=== PATIENT | female | born 1945 | race Caucasian/White ===

== ENCOUNTER → 2020-05-11 14:56 | Outpatient (BNVA) | payer MEDICARE, SELFPAY | PROVIDERS: PCP Internal Medicine; Referring Provider Internal Medicine; Visit Provider Internal Medicine Endocrinology, Diabetes & Metabolism | DX: Z76.89 Persons encountering health services in other specified circumstances (principal) ==

== ENCOUNTER → 2020-06-07 09:56 | Outpatient (BNVA) | payer MEDICARE, SELFPAY | PROVIDERS: PCP Internal Medicine; Referring Provider Internal Medicine; Visit Provider Internal Medicine Endocrinology, Diabetes & Metabolism | DX: Z13.89 Encounter for screening for other disorder (principal) | CPT/HCPCS: 99212 ==

== ENCOUNTER 2020-06-14 12:08 | Outpatient (REF) | payer MEDICARE, SELFPAY ==
[2020-06-14 14:27] LABS: Free T4 (Free Thyroxine) 0.89 ng/dL (0.71-1.85); Thyroid Stimulating Hormone 16.89 uIU/mL (0.32-4.0); Vitamin D 25-OH Total 35.8 ng/mL (>30)
[2020-06-17 07:26] LABS: Thyroglobulin Antibody <1 IU/mL (<=1); Thyroglobulin Level 1.4 ng/mL
== END 2020-06-14 12:09 | disposition home or self-care (01) ==
LOC: HO.LAB 12:08
PROVIDERS: PCP Internal Medicine; Visit Provider Internal Medicine Endocrinology, Diabetes & Metabolism
DX: C73 Malignant neoplasm of thyroid gland (principal); M81.0 Age-related osteoporosis without current pathological fracture
CPT/HCPCS: 36415; 82306; 84432; 84439; 84443; 86800

== ENCOUNTER → 2020-07-26 12:47 | Outpatient (REF) | payer MEDICARE, SELFPAY ==
--- NOTE | 2020-07-26 | NM_ITS ---
EXAMINATION: RENAL DYNAMIC IMAGING STUDY WITH LASIX CLINICAL INFORMATION: Hydronephrosis. COMPARISON: The previous study dated 12/02/2019 is available for comparison. The diagnostic CT scan of the chest, abdomen, and pelvis, dated 02/23/2020, is available for comparison. TECHNIQUE: Serial gamma scintillation camera images were obtained over the posterior trunk during the initial transit and subsequent distribution of a bolus intravenous injection of 10 mCi of Tc-99m DTPA. At 33 minutes later, 35 mg of Lasix was administered intravenously and an additional 30 minutes of images obtained. The study was terminated slightly prematurely because of the patient's urgency to void. FINDINGS: Initial rapid sequence images show prompt and normal-appearing perfusion to the right kidney. There is moderately diminished perfusion to the left kidney. Subsequent sequential static images obtained up to 30 minutes show good concentration in the right kidney but moderately to markedly diminished concentration in the left kidney. The left kidney is significantly smaller than the right. There is evidence of excretory function by 3 to 4 minutes post injection on the right and faintly by 5 minutes on the left. Some urinary bladder activity is visualized by 5 minutes post injection. At 30 minutes postinjection there is good visualization of activity in the urinary bladder and only very minimal retention in the right renal pelvis which does not appear dilated. There is mild retention in the left renal pelvis at this time, but this also does not appear significantly dilated. Following Lasix administration, there is continued washout from the right renal collecting system and some continued washout on the left although this is slightly slower. The T-1/2 washout times following Lasix administration are as follows, calculated from the time of maximum activity in each kidney because of the slightly early termination of the study: Left 17.0 minutes and right 21.1 minutes. The relative function of the two kidneys based on the 2-3 minute images are: Left 14% and right 86%. Compared to the previous study dated 12/02/2019, there does not appear to be a significant change. NM/NM renal imaging IMPRESSION: LEFT KIDNEY: Markedly impaired perfusion and function. There continues to be some excretory function visualized in this kidney, and this is slightly more prominent than on the prior study but the change is not likely clinically significant. Hydronephrosis does not appear to be present and following Lasix there is some washout is suggested significant outflow obstruction is not present. RIGHT KIDNEY: Normal perfusion and function. No hydronephrosis or outflow obstruction.
[2020-07-26] MEDS: Furosemide 40 MG/4 ML VIAL 35 MG IVPUSH (13:57)
== END ==
LOC: HO.NUCMED 12:47
PROVIDERS: Visit Provider Urology
DX: N13.30 Unspecified hydronephrosis (principal)
CPT/HCPCS: 78700; A9539; J1940

== ENCOUNTER → 2020-08-06 13:31 | Outpatient (BNVA) | payer MEDICARE, SELFPAY | PROVIDERS: PCP Internal Medicine; Visit Provider Urology | DX: N26.1 Atrophy of kidney (terminal) (principal) | CPT/HCPCS: Q3014 ==

== ENCOUNTER → 2020-08-17 11:45 | Outpatient (BNVA) | payer MEDICARE, SELFPAY | PROVIDERS: PCP Internal Medicine; Visit Provider Internal Medicine Endocrinology, Diabetes & Metabolism | DX: C73 Malignant neoplasm of thyroid gland (principal); E89.0 Postprocedural hypothyroidism; M81.0 Age-related osteoporosis without current pathological fracture; E55.9 Vitamin D deficiency, unspecified | CPT/HCPCS: 99212 ==

== ENCOUNTER 2020-08-17 12:40 | Outpatient (REF) | payer MEDICARE, SELFPAY ==
[2020-08-17 15:18] LABS: Free T4 (Free Thyroxine) 1.13 ng/dL (0.71-1.85); Thyroid Stimulating Hormone 3.58 uIU/mL (0.32-4.0); Vitamin D 25-OH Total 32.3 ng/mL (>30)
[2020-08-20 16:13] LABS: Iodine, Random Urine 117 mcg/L (34-523)
[2020-08-21 23:33] LABS: Thyroglobulin Antibody <1 IU/mL (<=1); Thyroglobulin Level 0.4 ng/mL
== END 2020-08-17 12:41 | disposition home or self-care (01) ==
LOC: HO.10HDL 12:40
PROVIDERS: Visit Provider Internal Medicine Endocrinology, Diabetes & Metabolism
DX: C73 Malignant neoplasm of thyroid gland (principal); M81.0 Age-related osteoporosis without current pathological fracture
CPT/HCPCS: 36415; 52000; 52310; 82306; 83789; 84432; 84439; 84443; 86800; 99212

== ENCOUNTER 2020-09-27 20:15 | Emergency (ER) | payer MEDICARE, SELFPAY ==
--- NOTE | ~2020-09-27 | CT_ITS ---
EXAMINATION: CT ABDOMEN AND PELVIS WITHOUT CONTRAST CLINICAL INFORMATION: Right flank pain COMPARISON: 02/23/2020 TECHNIQUE: Multidetector volumetric imaging was performed from the superior aspect of the liver through the pubic symphysis. Sagittal and coronal reformatted images were obtained on the technologist's workstation. This CT examination was performed using dose optimization techniques as appropriate, variously including the following: *Automated exposure control *Adjustment of mA and/or kV according to patient size (this includes techniques or standardized protocols for targeted exams where dose is matched to indication/reason for exam; i.e. extremities or head) *Use of iterative reconstruction technique DLP: 495 mGy-cm FINDINGS: Partially limited assessment due to patient motion artifact. LUNG BASES: The visualized lung bases are unremarkable. LIVER, GALLBLADDER, AND BILIARY TREE: The liver is normal in size, shape, and attenuation. Subcentimeter hypodensity in the posterior right hepatic lobe is too small to characterize. No biliary ductal dilatation is present. The gallbladder is grossly unremarkable. PANCREAS: Unremarkable. SPLEEN: Unremarkable. ADRENAL GLANDS: Unremarkable. KIDNEYS AND URETERS: The kidneys are normal in size, shape, and attenuation. No hydronephrosis, hydroureter, or calculi seen. No perinephric stranding. BLADDER: Unremarkable. GASTROINTESTINAL TRACT: The small and large bowel are unremarkable. The appendix is unremarkable. No free fluid or free air is seen. ABDOMINAL WALL: No significant hernia is appreciated. LYMPH NODES: Normal. VASCULAR: Scattered atherosclerotic calcifications are present. PELVIC VISCERA: Unremarkable. Trace free fluid noted. OSSEOUS STRUCTURES: Degenerative changes are noted in the spine. CT/CT abdomen pelvis wo con IMPRESSION: No hydronephrosis or ureteral calculus identified. Trace nonspecific pelvic free fluid.
--- NOTE | ~2020-09-27 | XR_ITS ---
EXAMINATION: XR CHEST CLINICAL INFORMATION: Chest pain COMPARISON: CT abdomen pelvis same day, chest radiograph 02/23/2020 TECHNIQUE: 2 views of the chest were obtained. FINDINGS: Again seen are hypoinflated lungs. Allowing for this, no significant abnormality is seen. Heart size is within normal limits. No infiltrates, pleural effusions or lung masses are seen. Again noted are degenerative changes in both shoulders. XR/XR chest 2V IMPRESSION: No acute intrathoracic disease.
[2020-09-27 20:52] VITALS: BP 209/80; PULSE 50; RESP 16; TEMP 37; O2SAT 98; BMI 23.6
[2020-09-27 21:15] LABS: Basophils Percent Auto 0.3 % (0-2); Glucose Urine UA NEG (NEG); Hemoglobin 13.2 g/dl (12.0-16.0); Imm Gran Abs Auto 0.02 X10*3/uL (0.00-0.03); Imm Gran Pct Auto 0.3 % (0.0-0.4); Leukocyte Esterase Urine NEG (NEG); Nitrite Urine NEG (NEG); PLT CLUMP 1; Red Cell Distribution Width 12.3 % (11.0-16.0); SCAN SMEAR FLAG 1; Urine Blood TRACE (NEG); Urine Ketones NEG (NEG); Urine Protein 2+ MG/DL (NEG-TRACE)
[2020-09-27 21:16] LABS: Eosinophils Absolute Auto 0.1 X10*3/uL (0.0-0.4); Eosinophils Percent Auto 1.2 % (0-4); Hematocrit 38.3 % (37-47); Lymphocytes Absolute Auto 1.2 X10*3/uL (1.2-4.9); Lymphocytes Percent Auto 16.3 % (20-40); Mean Corpuscular HGB Conc 34.5 g/dl (31.0-35.0); Mean Corpuscular Hemoglobin 29.8 pg (27.0-33.0); Mean Corpuscular Volume 86.5 fL (80-98); Mean Platelet Volume 12.3 fL (9.4-12.3); Monocytes Absolute Auto 0.3 X10*3/uL (0.1-1.2); Monocytes Percent Auto 3.7 % (2-11); Neutrophils Absolute Auto 5.8 X10*3/uL (2.0-8.3); Neutrophils Percent Auto 78.2 % (45-73); Platelet Count 115 X10*3/uL (160-400); Red Blood Count 4.43 X10*6/uL (4.20-5.50); White Blood Count 7.4 X10*3/uL (4.8-10.8)
[2020-09-27 21:17] LABS: Appearance Urine CLEAR; Color Urine YELLOW; MANUAL DIFF FLAG NO
[2020-09-27 21:22] LABS: Squamous Epithelial Cell Urine 1+ /LPF; WBC Urine 0-2 /HPF (0-4)
[2020-09-27 21:40] LABS: Alanine Aminotransferase 23 U/L (0-31); Albumin Level 3.9 g/dL (3.5-5.0); Alkaline Phosphatase 84 U/L (39-117); Anion Gap 11 (12-20); Aspartate Amino Transferase 26 U/L (5-31); Bilirubin Total 0.8 mg/dL (0.0-1.0); Blood Urea Nitrogen 12 mg/dL (9-16); Calcium 8.9 mg/dL (8.4-10.2); Carbon Dioxide 26 mmol/L (22-29); Chloride 107 mmol/L (96-108); Creatinine Clr Calc Pharmacy 33.9; Estimated Glomerular Filt Rate 47; Glucose Random 210 mg/dL (60-115); Lipase 110 U/L (8-78); Potassium 3.9 mmol/L (3.3-5.1); Sodium 140 mmol/L (135-145); Total Protein 6.9 g/dL (6.5-8.0)
[2020-09-28] VITALS (7 sets, daily range): BP systolic 141–218; BP diastolic 42–110; PULSE 53–60; RESP 15–18; O2SAT 99–100
--- NOTE | 2020-09-28 00:32 | ED.ABDPAIN ---
HPI - Abdominal Pain General Chief Complaint: Abdominal Pain Stated Complaint: Flank pain Source: patient Mode of arrival: ambulatory Limitations: language barrier History of Present Illness HPI narrative: 74-year-old female with past medical history of osteoporosis, hypothyroidism, papillary carcinoma with thyroidectomy, left kidney atrophy, osteoporosis, diabetes, hypertension, hyperlipidemia, chronic pain, depression, AFib, CKD stage 4, and aortic valve disease presents with right flank pain and nausea that started this morning. She does report a remote history of kidney stones, and states that this pain feels similar. She was drinking lemon juice today to help alleviate her suspected kidney stone. She presents now because the pain has not alleviated. She does not report any fevers, chills, chest pain or pressure, palpitations, shortness of breath, abdominal distention, dysuria, hematuria, falls, trauma, or edema. MD elicited complaint: flank pain Pertinent past history: kidney stones Onset (ago): day(s) (1) Pain Consistency: constant Location: R flank Severity: moderate Quality: stabbing Radiation: none Migration to: no migration Relieving factors: nothing Associated symptoms: nausea Treatments prior to arrival: other Related Data Home Medications Medication Instructions Recorded Confirmed alcohol swabs 0 pad TOPICAL 06/07/20 08/17/20 amlodipine 10 mg tablet 10 mg PO DAILY 06/07/20 08/17/20 atorvastatin 40 mg tablet 40 mg PO BEDTIME 06/07/20 08/17/20 blood sugar diagnostic #10 ea 06/07/20 08/17/20 calcium citrate 200 mg (950 mg) 400 mg PO 06/07/20 08/17/20 tablet docusate sodium 100 mg capsule 100 mg PO BID 06/07/20 08/17/20 dronedarone 400 mg tablet 400 mg PO BID 06/07/20 08/17/20 famotidine 40 mg tablet 20 mg PO 06/07/20 08/17/20 gabapentin 300 mg capsule 300 mg PO BEDTIME 06/07/20 08/17/20 lancets 33 gauge #100 ea 06/07/20 08/17/20 losartan 100 mg tablet 100 mg PO DAILY 06/07/20 08/17/20 metformin 500 mg tablet,extended 500 mg PO BEDTIME 06/07/20 08/17/20 release 24 hr metoprolol tartrate 50 mg tablet 100 mg PO 06/07/20 08/17/20 multivit with 1 tab PO QAM 06/07/20 08/17/20 eybivfim-tcxa-LR-lutein 8 mg iron-400 mcg-300 mcg tablet omeprazole 20 mg capsule,delayed 20 mg PO DAILY 06/07/20 08/17/20 release oxycodone 5 mg tablet 5 mg PO Q12H PRN 06/07/20 08/17/20 prazosin 5 mg capsule 5 mg PO BEDTIME 06/07/20 08/17/20 sertraline 25 mg tablet 25 mg PO QAM 06/07/20 08/17/20 spironolactone 25 mg tablet 25 mg PO DAILY 06/07/20 08/17/20 apixaban 5 mg tablet 5 mg PO BID 08/17/20 08/17/20 Previous Rx's Medication Instructions Recorded levothyroxine 125 mcg capsule 125 mcg PO DAILY 30 Days #30 cap NS 08/18/20 cholecalciferol (vitamin D3) 25 25 mcg PO DAILY 30 Days #30 cap 09/22/20 mcg (1,000 unit) capsule Allergies Allergy/AdvReac Type Severity Reaction Status Date / Time No Known Allergies Allergy Verified 09/27/20 20:52 [No Known Allergies*] Review of Systems Review of Systems Constitutional: No Fever, No Chills ENT/Mouth: No sore throat Eyes: No Eye Pain, No Swelling, No Redness Cardiovascular: No Chest Pain, No SOB Respiratory: No Cough, No Sputum, No Wheezing Gastrointestinal: Positive abdominal pain and right flank pain, positive Nausea, no Vomiting, No Diarrhea Genitourinary: No Dysuria, no urinary frequency, no Hematuria, no Flank Pain, no hesitancy Musculoskeletal: No joint pain, No Myalgias Skin: No Skin Lesions, No rash Neuro: No Weakness, No Numbness, No Headache Psych: No Anxiety/Panic, No Depression Heme/Lymph: No Bruising, No Lymphadenopathy Endocrine: No Polyuria, No Polydipsia Yes all other systems are reviewed and are negative Physical Exam Vital Signs: Vital Signs: Last Vital Signs Temp 98.6 F 09/27/20 20:52 Pulse 56 09/28/20 01:16 Resp 18 09/28/20 01:26 BP 214/50 H 09/28/20 01:16 Pulse Ox 98 09/27/20 20:52 Body Mass Index 23.6 Appearance: Alert. Oriented X3. No acute distress. Eyes: Pupils equal, round and reactive to light. EOMI, sclera nonicteric ENT: Pharynx normal. Moist mucous membranes Neck: Normal inspection. Neck supple. No JVD CVS: Normal heart rate and rhythm. Pulses normal. Respiratory: No respiratory distress. Lung sounds clear to auscultation all lobes. Abdomen: Soft and tender to right lower quadrant. No rigidity or guarding, negative David, McBurney, psoas and Rovsing Skin: Skin warm and dry. Normal skin color. Normal skin turgor. Extremities: No lower extremity edema. Moves all extremities against resistance Neuro: No motor deficit. No sensory deficit. Cranial nerves 2-12 intact, no focal neural deficits Course Course Course Narrative: 74-year-old female with past medical history of osteoporosis, hypothyroidism, papillary carcinoma with thyroidectomy, left kidney atrophy, osteoporosis, diabetes, hypertension, hyperlipidemia, chronic pain, depression, AFib, CKD stage 4, and aortic valve disease presents with right flank pain and nausea that started this morning. Labs were drawn while she was waiting in the waiting room. Given her significant past medical history we will rule out ACS, order CT scan of the abdomen and chest x-ray. CBC is unremarkable, platelets are 115 which is consistent with prior values, last platelet count was 76 on 02/16/2020, glucose 210. CT scan of abdomen and pelvis is negative for acute findings requiring emergent intervention. Chest x-ray is normal. EKG shows sinus Phill 53 beats per minute with nonspecific T-wave abnormality, patient is on metoprolol. At 1:15 a.m. troponin is 21.2, will order repeat. Sign-out Dr. Haq. MDM - Abdominal Pain Differential Diagnosis Differential diagnosis: Likely abdominal pain, aortic dissection, acute appendicitis, bowel perforation, calculus of kidney, constipation, peptic ulcer disease, renal colic and small bowel obstruction Differential diagnosis narrative:: ACS, acute abdomen Medical Records Attestation: I reviewed the patient's medical records. Lab Data Attestation: I reviewed the patient's lab results. Result diagrams: 09/27/20 21:07 09/27/20 21:07 Labs: Lab Results 09/27/20 09/27/20 09/27/20 Range/Units 21:07 21:07 21:07 WBC 7.4 (4.8-10.8) X10*3/uL RBC 4.43 (4.20-5.50) X10*6/uL Hgb 13.2 (12.0-16.0) g/dl Hct 38.3 (37-47) % MCV 86.5 (80-98) fL MCH 29.8 (27.0-33.0) pg MCHC 34.5 (31.0-35.0) g/dl RDW 12.3 (11.0-16.0) % Plt Count 115 L (160-400) X10*3/uL MPV 12.3 (9.4-12.3) fL Immature Gran % (Auto) 0.3 (0.0-0.4) % Neut % (Auto) 78.2 H (45-73) % Lymph % (Auto) 16.3 L (20-40) % [place] % (Auto) 3.7 (2-11) % Eos % (Auto) 1.2 (0-4) % Baso % (Auto) 0.3 (0-2) % Lymph # (Auto) 1.2 (1.2-4.9) X10*3/uL [place] # (Auto) 0.3 (0.1-1.2) X10*3/uL Eos # (Auto) 0.1 (0.0-0.4) X10*3/uL Baso # (Auto) 0.0 (0.0-0.2) X10*3/uL Abs Immat Gran (auto) 0.02 (0.00-0.03) X10*3/uL Absolute Neuts (auto) 5.8 (2.0-8.3) X10*3/uL Absolute Nucleated RBC 0.000 (0.0-0.012) X10*3/uL Nucleated RBC % (auto) 0.0 (0.0-0.2) /100WBC Hold Blue Top SEE NOTE Sodium (135-145) mmol/L Potassium (3.3-5.1) mmol/L Chloride (96-108) mmol/L Carbon Dioxide (22-29) mmol/L Anion Gap (12-20) BUN (9-16) mg/dL Creatinine (0.5-1.4) mg/dL Estim Creat Clear Calc Estimated GFR Random Glucose (60-115) mg/dL Calcium (8.4-10.2) mg/dL Total Bilirubin (0.0-1.0) mg/dL AST (5-31) U/L ALT (0-31) U/L Alkaline Phosphatase (39-117) U/L Troponin I High Sens (<3.5-17.0) ng/L Total Protein (6.5-8.0) g/dL Albumin (3.5-5.0) g/dL Lipase (8-78) U/L Urine Color YELLOW Urine Appearance CLEAR Urine pH 7.0 (5.0-8.0) Ur Specific [place] 1.020 (1.005-1.025) Urine Protein 2+ H (NEG-TRACE) MG/DL Urine Glucose (UA) NEG (NEG) MG/DL Urine Ketones NEG (NEG) MG/DL Urine Blood TRACE (NEG) Urine Nitrite NEG (NEG) Ur Leukocyte Esterase NEG (NEG) Urine RBC 1-4 (0) /HPF Urine WBC 0-2 (0-4) /HPF Ur Squamous Epith Cells 1+ /LPF Urine Bacteria NONE /LPF 09/27/20 09/28/20 Range/Units 21:07 01:15 WBC (4.8-10.8) X10*3/uL RBC (4.20-5.50) X10*6/uL Hgb (12.0-16.0) g/dl Hct (37-47) % MCV (80-98) fL MCH (27.0-33.0) pg MCHC (31.0-35.0) g/dl RDW (11.0-16.0) % Plt Count (160-400) X10*3/uL MPV (9.4-12.3) fL Immature Gran % (Auto) (0.0-0.4) % Neut % (Auto) (45-73) % Lymph % (Auto) (20-40) % [place] % (Auto) (2-11) % Eos % (Auto) (0-4) % Baso % (Auto) (0-2) % Lymph # (Auto) (1.2-4.9) X10*3/uL [place] # (Auto) (0.1-1.2) X10*3/uL Eos # (Auto) (0.0-0.4) X10*3/uL Baso # (Auto) (0.0-0.2) X10*3/uL Abs Immat Gran (auto) (0.00-0.03) X10*3/uL Absolute Neuts (auto) (2.0-8.3) X10*3/uL Absolute Nucleated RBC (0.0-0.012) X10*3/uL Nucleated RBC % (auto) (0.0-0.2) /100WBC Hold Blue Top Sodium 140 (135-145) mmol/L Potassium 3.9 (3.3-5.1) mmol/L Chloride 107 (96-108) mmol/L Carbon Dioxide 26 (22-29) mmol/L Anion Gap 11 L (12-20) BUN 12 (9-16) mg/dL Creatinine 1.13 (0.5-1.4) mg/dL Estim Creat Clear Calc 33.9 Estimated GFR 47 Random Glucose 210 H (60-115) mg/dL Calcium 8.9 (8.4-10.2) mg/dL Total Bilirubin 0.8 (0.0-1.0) mg/dL AST 26 (5-31) U/L ALT 23 (0-31) U/L Alkaline Phosphatase 84 (39-117) U/L Troponin I High Sens 21.2 H (<3.5-17.0) ng/L Total Protein 6.9 (6.5-8.0) g/dL Albumin 3.9 (3.5-5.0) g/dL Lipase 110 H (8-78) U/L Urine Color Urine Appearance Urine pH (5.0-8.0) Ur Specific [place] (1.005-1.025) Urine Protein (NEG-TRACE) MG/DL Urine Glucose (UA) (NEG) MG/DL Urine Ketones (NEG) MG/DL Urine Blood (NEG) Urine Nitrite (NEG) Ur Leukocyte Esterase (NEG) Urine RBC (0) /HPF Urine WBC (0-4) /HPF Ur Squamous Epith Cells /LPF Urine Bacteria /LPF Imaging Data Chest x-ray: Attestation: I personally reviewed and interpreted this imaging study as follows: Radiologist's impression: EXAMINATION: XR CHEST CLINICAL INFORMATION: Chest pain COMPARISON: CT abdomen pelvis same day, chest radiograph 02/23/2020 TECHNIQUE: 2 views of the chest were obtained. FINDINGS: Again seen are hypoinflated lungs. Allowing for this, no significant abnormality is seen. Heart size is within normal limits. No infiltrates, pleural effusions or lung masses are seen. Again noted are degenerative changes in both shoulders. XR/XR chest 2V IMPRESSION: No acute intrathoracic disease. CT scan - abdomen: Attestation: I personally reviewed and interpreted this imaging study as follows: Radiologist's impression: EXAMINATION: CT ABDOMEN AND PELVIS WITHOUT CONTRAST CLINICAL INFORMATION: Right flank pain COMPARISON: 02/23/2020 TECHNIQUE: Multidetector volumetric imaging was performed from the superior aspect of the liver through the pubic symphysis. Sagittal and coronal reformatted images were obtained on the technologist's workstation. This CT examination was performed using dose optimization techniques as appropriate, variously including the following: *Automated exposure control *Adjustment of mA and/or kV according to patient size (this includes techniques or standardized protocols for targeted exams where dose is matched to indication/reason for exam; i.e. extremities or head) *Use of iterative reconstruction technique DLP: 495 mGy-cm FINDINGS: Partially limited assessment due to patient motion artifact. LUNG BASES: The visualized lung bases are unremarkable. LIVER, GALLBLADDER, AND BILIARY TREE: The liver is normal in size, shape, and attenuation. Subcentimeter hypodensity in the posterior right hepatic lobe is too small to characterize. No biliary ductal dilatation is present. The gallbladder is grossly unremarkable. PANCREAS: Unremarkable. SPLEEN: Unremarkable. ADRENAL GLANDS: Unremarkable. KIDNEYS AND URETERS: The kidneys are normal in size, shape, and attenuation. No hydronephrosis, hydroureter, or calculi seen. No perinephric stranding. BLADDER: Unremarkable. GASTROINTESTINAL TRACT: The small and large bowel are unremarkable. The appendix is unremarkable. No free fluid or free air is seen. ABDOMINAL WALL: No significant hernia is appreciated. LYMPH NODES: Normal. VASCULAR: Scattered atherosclerotic calcifications are present. PELVIC VISCERA: Unremarkable. Trace free fluid noted. OSSEOUS STRUCTURES: Degenerative changes are noted in the spine. CT/CT abdomen pelvis wo con IMPRESSION: No hydronephrosis or ureteral calculus identified. Trace nonspecific pelvic free fluid. ECG Data Attestation: I personally reviewed and interpreted this ECG as follows: ECG interpretation date: 09/28/20 ECG interpretation time: 01:04 Prior ECG tracings: available for review Interpretation: Vent. rate 53 BPM ME interval 146 ms QRS duration 94 ms QT/QTc 470/441 ms P-R-T axes -25 -9 70 Sinus bradycardia Voltage criteria for left ventricular hypertrophy Nonspecific T wave abnormality Abnormal ECG When compared with ECG of 23-FEB-2020 02:34, Premature supraventricular complexes are no longer Present T wave inversion more evident in Lateral leads Scores Heart Score History: -2- highly suspicious ECG: -1- non specific repolarization disturbance Age: -2- > or = 65 Risk factory: -2- 3 or more risk factors or treated atherosclerosis Troponin: -1- >1 - <3x normal limit Score: 8 Risk: 50.1% Discharge Plan Discharge Prescriptions: No Action levothyroxine 125 mcg capsule 125 mcg PO DAILY 30 Days Qty: 30 RF: 6 cholecalciferol (vitamin D3) 25 mcg (1,000 unit) capsule 25 mcg PO DAILY 30 Days Qty: 30 RF: 3 oxycodone 5 mg tablet 5 mg PO Q12H PRN (Reason: pain) RF: 0 Centrum Silver Women 8 mg iron-400 mcg-300 mcg tablet 1 tab PO QAM RF: 0 Multaq 400 mg tablet 400 mg PO BID RF: 0 metoprolol tartrate 50 mg tablet 100 mg PO RF: 0 prazosin 5 mg capsule 5 mg PO BEDTIME RF: 0 spironolactone 25 mg tablet 25 mg PO DAILY RF: 0 omeprazole 20 mg capsule,delayed release(DR/EC) 20 mg PO DAILY RF: 0 (DME) FreeStyle Lite Strips Strip See Rx Instructions ea Not Applicable DAILY Qty: 10 RF: 0 docusate sodium 100 mg capsule 100 mg PO BID RF: 0 amlodipine 10 mg tablet 10 mg PO DAILY RF: 0 metformin 500 mg tablet extended release 24 hr 500 mg PO BEDTIME RF: 0 (DME) lancets 33 gauge misc See Rx Instructions ea .ROUTE DAILY Qty: 100 RF: 0 gabapentin 300 mg capsule 300 mg PO BEDTIME RF: 0 alcohol swabs Pads, Medicated 0 pad topical RF: 0 calcium citrate 200 mg (950 mg) tablet 400 mg PO RF: 0 sertraline 25 mg tablet 25 mg PO QAM RF: 0 losartan 100 mg tablet 100 mg PO DAILY RF: 0 atorvastatin 40 mg tablet 40 mg PO BEDTIME RF: 0 famotidine 40 mg tablet 20 mg PO RF: 0 apixaban 5 mg tablet 5 mg PO BID RF: 0 PMFSH Past Medical History Attestation statement: The following information was validated with the patient. 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 Mother No problems noted. Social History Social History Advance Directives: No
--- NOTE | 2020-09-28 00:33 | ECG_ITS ---
Test Reason : ABD PAIN Blood Pressure : / mmHG Vent. Rate : 053 BPM Atrial Rate : 053 BPM P-R Int : 146 ms QRS Dur : 094 ms QT Int : 470 ms P-R-T Axes : -25 -09 070 degrees QTc Int : 441 ms Sinus bradycardia Voltage criteria for left ventricular hypertrophy Nonspecific T wave abnormality Abnormal ECG When compared with ECG of 23-FEB-2020 02:34, Premature supraventricular complexes are no longer Present T wave inversion more evident in Lateral leads Referred By: Alissa Asif Electronically Signed By:JAMIE NAQVI
[2020-09-28] MEDS: Morphine Sulfate 2 MG/ML CARTRIDGE IVPUSH (01:26)
[2020-09-28] MEDS: ondansetron HCL 4 MG/2 ML VIAL IVPUSH (01:27)
[2020-09-28 01:56] LABS: Troponin-I High Sensitivity 21.2 ng/L (<3.5-17.0)
[2020-09-28] MEDS: Lidocaine HCl Viscous 2 % 15 ML SOLUTION 10 ML MUCOUS MEM (04:20)
[2020-09-28] MEDS: Magnesium Hydrox/Alum Hydrox 30 ML ORAL.SUSP PO (04:20)
[2020-09-28 04:36] LABS: Troponin-I High Sensitivity 15.7 ng/L (<3.5-17.0)
--- NOTE | 2020-09-28 05:12 | PC.NURSE ---
PLAN IS FOR DC HOME, DR SHEA UPDATED PATIENT ON RESULTS OF TESTING AND DISPO PLAN. PT AGREEABLE TO PLAN. FAMILY WITH PATIENT FOR RIDE HOME. MD AWARE OF BP READINGS THROUGHOUT STAY.
== END 2020-09-28 05:15 | disposition home or self-care (01) ==
PROVIDERS: Nurse Practitioner Family; Emergency Provider Student in an Organized Health Care Education/Training Program; PCP Internal Medicine
DX: M79.10 Myalgia, unspecified site (principal); E11.22 Type 2 diabetes mellitus with diabetic chronic kidney disease; I12.9 Hypertensive chronic kidney disease with stage 1 through stage 4 chronic kidney disease, or unspecified chronic kidney disease; N18.4 Chronic kidney disease, stage 4 (severe); I48.91 Unspecified atrial fibrillation; E78.5 Hyperlipidemia, unspecified; Z87.442 Personal history of urinary calculi; Z79.84 Long term (current) use of oral hypoglycemic drugs; Z79.899 Other long term (current) drug therapy
CPT/HCPCS: 36415; 71046; 74176; 80053; 81001; 83690; 84484; 85025; 93005; 99284; J2270; J2405

== ENCOUNTER 2020-09-30 15:08 | Inpatient (IN) | payer MEDICARE, SELFPAY ==
[2020-09-30] VITALS (9 sets, daily range): BP systolic 95–144; BP diastolic 52–80; PULSE 66–113; RESP 18–28; TEMP 36.2–37.4; O2SAT 94–99; BMI 24.0
--- NOTE | ~2020-09-30 | US_ITS ---
EXAMINATION: US ABDOMEN LIMITED CLINICAL INFORMATION: Abdominal pain with abnormal CT scan suggesting abnormal gallbladder versus diverticular disease ascending colon. COMPARISON: CT scan performed earlier today along with abdominal ultrasound 06/14/2017 TECHNIQUE: Real-time imaging of the right upper quadrant abdominal viscera. FINDINGS: PANCREAS: Normal. LIVER: The liver is normal in size. The liver contour is normal. Parenchymal echogenicity is normal. No focal hepatic lesion. There is no intrahepatic biliary duct dilatation seen. GALLBLADDER: Gallstones are present along with echogenic bile. The gallbladder wall is thickened measuring 6.8 mm. A small amount of pericholecystic fluid is present. In addition, the patient is tender over the gallbladder with compression. These findings are highly suggestive acute cholecystitis. On the 2017 ultrasound, the gallbladder was normal. COMMON BILE DUCT: Normal in caliber measuring 0.3 cm in diameter. RIGHT KIDNEY: No hydronephrosis. No renal calculi or focal parenchymal lesions. The kidney measures 9.4 cm in maximum dimension. FREE FLUID: None. US/US abdomen limited IMPRESSION: Distended thick-walled gallbladder with stones and echogenic bile with some pericholecystic fluid and positive David sign. Findings suggestive of acute cholecystitis.
--- NOTE | ~2020-09-30 | CT_ITS ---
EXAMINATION: CT HEAD WITHOUT CONTRAST CLINICAL INFORMATION: Weakness COMPARISON: 05/14/2017 TECHNIQUE: Contiguous axial imaging was performed from the skull base to vertex without intravenous administration of contrast. This CT examination was performed using dose optimization techniques as appropriate, variously including the following: *Automated exposure control *Adjustment of mA and/or kV according to patient size (this includes techniques or standardized protocols for targeted exams where dose is matched to indication/reason for exam; i.e. 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 Symmetrical white matter changes most consistent with terminal supply white matter chronic lacunar ischemic/infarct involving the ferrara radiata and centrum semiovale. Old appearing lacunar infarct versus prominent perivascular space right lentiform nucleus adjacent to the kidney with internal capsule There is no evidence of acute intracranial hemorrhage or territorial infarction. No abnormal mass effect or midline shift is seen. [place] to white matter differentiation is well preserved. No extra-axial fluid collections are identified. The ventricles are normal in size. The osseous structures and soft tissues are normal. The mastoid air cells and visualized portions of the paranasal sinuses are well aerated. Limitations due to motion degradation. CT/CT head/brain wo con IMPRESSION: No acute intracranial pathology. Chronic findings as above.
--- NOTE | ~2020-09-30 | CT_ITS ---
EXAMINATION: CT ABDOMEN AND PELVIS WITHOUT CONTRAST CLINICAL INFORMATION: Altered mental status, weakness and abdominal pain. COMPARISON: CT abdomen and pelvis just 2 days ago 09/28/[address] abdomen and pelvis 02/23/2020. TECHNIQUE: Multidetector volumetric imaging was performed from the superior aspect of the liver through the pubic symphysis. Sagittal and coronal reformatted images were obtained on the technologist's workstation. This CT examination was performed using dose optimization techniques as appropriate, variously including the following: *Automated exposure control. *Adjustment of mA and/or kV according to patient size (this includes techniques or standardized protocols for targeted exams where dose is matched to indication/reason for exam; i.e. extremities or head). *Use of iterative reconstruction technique. DLP: 672 mGy-cm FINDINGS: LUNG BASES: Since the prior study, bibasilar atelectasis has developed. Cardiomegaly remains present. No pleural effusions or pericardial effusion is seen. LIVER, GALLBLADDER, AND BILIARY TREE: The liver is normal in size, shape, and attenuation. No focal hepatic lesion or biliary ductal dilatation is present. The gallbladder is distended. High density material is seen layering in the gallbladder suggestive of cholecystitis. The gallbladder wall appears thickened and some inflammatory changes are present around the gallbladder. Inflammatory change extends towards the ascending colon as well as the lateral fascial surfaces and the lower portion of the anterior pararenal fascia. These were not present on the 02/23/2020 study but some minimal inflammatory change may have been present on the study from 2 days ago. I think it is warranted to obtain a right upper quadrant ultrasound for further evaluation. It is possible, although I think significantly less likely, that this process is related to diverticulitis of the ascending colon affecting the gallbladder. PANCREAS: Unremarkable. SPLEEN: Unremarkable. ADRENAL GLANDS: Unremarkable. KIDNEYS AND URETERS: The kidneys are normal in size, shape, and attenuation. 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 On the right, there is some mild prominence of the collecting system which may be due to the above-mentioned inflammatory process. No gross hydronephrosis is seen. No hydroureter or renal calculi seen. BLADDER: Unremarkable. GASTROINTESTINAL TRACT: Colonic diverticular changes are present. There is no evidence of diverticulitis. The small and large bowel are unremarkable. The appendix is unremarkable. ABDOMINAL WALL: No significant hernia is appreciated. LYMPH NODES: Normal. VASCULAR: Calcific atherosclerotic plaque present in the aorta and iliac vessels. PELVIC VISCERA: There is new free intraperitoneal fluid. Only a tiny bit was present previously and none was seen in the 02/23/2020 study. An anteverted uterus is present. An abnormal adnexal mass is not seen. OSSEOUS STRUCTURES: Degenerative changes present but no bony destructive lesions. CT/CT abdomen pelvis wo con IMPRESSION: 1. Enlarged gallbladder with probable stones and surrounding inflammatory change, most likely representing cholecystitis. Free pelvic fluid is present probably secondary to inflammatory process. A right upper quadrant ultrasound is recommended for further evaluation. The inflammatory process extends to the ascending colon. If the diagnosis is not cholecystitis, certainly diverticulitis would be a possibility. 2. Stable right renal artery aneurysm. This critical result was discussed with JASMYNE Bar at 5:15 PM on the day of the exam and it was ascertained that the content and urgency of the report was understood at the time of direct communication. A right upper quadrant ultrasound is being ordered.
--- NOTE | ~2020-09-30 | CT_ITS ---
PROCEDURE: CT GUIDED DRAINAGE, GALLBLADDER. CLINICAL INFORMATION: Cholecystitis. COMPARISON: None. TECHNIQUE: Following explaining CT-guided cholecystostomy drainage procedure with catheter placement, benefits and risks via relay record clerk, a written consent was obtained. Patient was placed in semi-left lateral decubitus view and preliminary CT imaging was obtained. Markers were placed along the right upper anterolateral abdominal wall and repeat scanning was performed. An optimal site was selected and marked on the skin. The marked site and the area around was cleaned in an aseptic manner with 2% chlorhexidine solution. Sterile drape was applied at the cleaned site. 1% lidocaine was inserted at the puncture site. IV conscious sedation with fentanyl and Versed was administered at the same time. A 5 [place] Yueh long catheter was then inserted from a small skin incision transhepatic into the gallbladder. CT fluoroscopy imaging was performed simultaneously. After observing fluid return, stylet was withdrawn and a 0.35 J-wire was advanced into the gallbladder and catheter withdrawn. A 10.2 [place] APD catheter with stiffener was threaded over the guidewire and advanced into the gallbladder. Repeat imaging was performed. After visualizing pigtail catheter in the gallbladder, the guidewire and the stiffener were withdrawn. The string was pulled and a pigtail was formed permanently. The catheter was then connected via CTA valve to a drainage bag. The catheter was sutured to the skin with 3-0 nylon sutures. Sterile dressing applied postprocedure. Patient tolerated procedure extremely well. This CT examination was performed using dose optimization techniques as appropriate, variously including the following: *Automated exposure control *Adjustment of mA and/or kV according to patient size (this includes techniques or standardized protocols for targeted exams where dose is matched to indication/reason for exam; i.e. extremities or head) *Use of iterative reconstruction technique DLP: 439 mGy-cm. FINDINGS: On preliminary CT imaging, there are bilateral small pleural effusions with bibasilar atelectasis. There is a dilated heterogenous-appearing gallbladder with mild wall thickening and fat stranding around the gallbladder. Approximately 10.2 [place] transhepatic APD catheter placement within the gallbladder. The drainage fluid was yellowish and appeared noninfected. CT/CT drain peritoneum IMPRESSION: Successful CT fluoroscopy-guided placement of a 10 [place] APD catheter.
--- NOTE | ~2020-09-30 | CT_ITS ---
EXAMINATION: CT CHEST WITHOUT CONTRAST CLINICAL INFORMATION: Follow-up chest x-ray, weakness COMPARISON: Radiographs the same day TECHNIQUE: Multidetector volumetric CT imaging of the chest was done. Axial MIP volume rendering provided. Sagittal and coronal reformatted images were obtained. This CT examination was performed using dose optimization techniques as appropriate, variously including the following: *Automated exposure control *Adjustment of mA and/or kV according to patient size (this includes techniques or standardized protocols for targeted exams where dose is matched to indication/reason for exam; i.e. extremities or head) *Use of iterative reconstruction technique DLP: 276 mGy-cm FINDINGS: GRANT WRITER: Similar LUNGS: Slight motion degradation limits assessment. They're with assess of groundglass opacities but there are minor lower lobe airspace disease consistent atelectasis or pneumonia. No specific findings of atypical infection grossly. No pleural effusion. No discrete nodule or mass. MEDIASTINUM: The mediastinum is normal. PLEURA: There is no pleural effusion. No pleural mass or thickening. AXILLA: No lymphadenopathy. UPPER ABDOMEN: Low-density focus inferiorly right lobe similar to recent CT of the abdomen 09/28/2020. OSSEOUS STRUCTURES: Unremarkable. CT/CT chest wo con IMPRESSION: Minor bibasilar airspace disease. No specific findings of atypical infection. No mass.
--- NOTE | ~2020-09-30 | CT_ITS ---
EXAMINATION: CT ABDOMEN AND PELVIS WITHOUT CONTRAST CLINICAL INFORMATION: Cholecystitis with spiking fever. COMPARISON: Ultrasound abdomen 09/30/2020. CT abdomen and pelvis 09/30/2020 TECHNIQUE: Multidetector volumetric imaging was performed from the superior aspect of the liver through the pubic symphysis. Sagittal and coronal reformatted images were obtained on the technologist's workstation. This CT examination was performed using dose optimization techniques as appropriate, variously including the following: *Automated exposure control *Adjustment of mA and/or kV according to patient size (this includes techniques or standardized protocols for targeted exams where dose is matched to indication/reason for exam; i.e. extremities or head) *Use of iterative reconstruction technique DLP: 1102 mGy-cm FINDINGS: LUNG BASES: There are bilateral small pleural effusions with bibasilar basilic small consolidations. Heart size is normal. There are coronary artery calcifications present. LIVER, GALLBLADDER, AND BILIARY TREE: The liver is normal in size, shape, and attenuation. No focal hepatic lesion or biliary ductal dilatation is present. The gallbladder is distended with mild wall thickening and pericolic fat stranding suggestive of cholecystitis. PANCREAS: Unremarkable. SPLEEN: Unremarkable. ADRENAL GLANDS: Unremarkable. KIDNEYS AND URETERS: The kidneys are normal in size, shape, and attenuation. No hydronephrosis, hydroureter, or calculi seen. No perinephric stranding. BLADDER: There is a Hilliard's catheter in the bladder. Minimal bladder wall thickening is noted. GASTROINTESTINAL TRACT: There is mild mural thickening involving the ascending colon and cecum likely primary or secondary inflammatory process. Rest of colon is unremarkable. The small bowel loops are normal. The stomach is nondistended and appears unremarkable. There is small amount of free fluid in the pelvis. ABDOMINAL WALL: There is mild abdominal wall edema especially along the flanks. LYMPH NODES: Normal. VASCULAR: Unremarkable. PELVIC VISCERA: There is a small amount of free fluid. There are dense sigmoid colon is seen. The uterus is anteverted and appears unremarkable. No solid mass seen. OSSEOUS STRUCTURES: There are degenerative disc changes L5-S1 disc level with ventral and posterior spondylosis. Rest of the lumbar spine is normal. No lytic or sclerotic process seen. CT/CT abdomen pelvis wo con IMPRESSION: Distended gallbladder with wall thickening and pericolic fat stranding suggestive of cholecystitis. There is small amount of free fluid in the pelvis similar previous study from 09/30/2020. There is mild mural thickening involving ascending colon and cecal region. In addition patient has scattered diverticulosis. The mural thickening is likely secondary to diverticular disease. There is no suspicion for diverticulitis. There is no free air. There is diffuse abdominal wall edema, new since CT abdomen and pelvis 09/30/2020.
--- NOTE | ~2020-09-30 | XR_ITS ---
EXAMINATION: XR CHEST CLINICAL INFORMATION: Weakness, altered mental status, or abdominal pain. COMPARISON: Chest radiographs 09/28/2020, 02/23/2020 TECHNIQUE: Portable upright AP view of the chest was obtained. FINDINGS: Heart is within limits of normal size. There is mild fullness central vasculature. There is no vascular congestion or lobar segmental airspace consolidation. There is questionable groundglass opacity right suprahilar region. No air bronchograms. No effusion. Again, there are degenerative changes thoracic spine and bilateral shoulder arthropathy. XR/XR chest 1V IMPRESSION: Questionable groundglass opacity right suprahilar region. Lungs otherwise clear. No effusion.
--- NOTE | 2020-09-30 15:31 | ED.GENADULT ---
HPI - General Adult General Chief complaint: Abdominal Pain Stated complaint: abd pain Time Seen by Provider: 09/30/20 15:31 Source: patient and EMS Mode of arrival: EMS Limitations: language barrier (Primary Barbadian-speaking) and altered mental status History of Present Illness HPI narrative: This is a 72-year-old female presenting via EMS who state family called for patient having right-sided abdomen/flank pain that has continued and question altered mental status however history very limited as there was no science interpreter on site and patient as well as family only speaks Barbadian. Unknown time of onset. According to review of EMR this is a 74-year-old female with past medical history of osteoporosis, hypothyroidism, papillary carcinoma with thyroidectomy, left kidney atrophy, osteoporosis, diabetes, hypertension, hyperlipidemia, chronic pain, depression, AFib chronically anticoagulated on Eliquis, CKD stage 4, and aortic valve disease Was seen here on September 28 in the ER for right-sided flank pain seem more musculoskeletal in etiology she had extensive workup including cardiac workup as well as CT study of her abdomen pelvis and subsequently discharged home. healthcare interpreter present Upon arrival patient is alert and oriented does seems slightly lethargic she is alert and oriented to person and time but not the place she knows she is in a hospital but not sure what hospital this is. She states she has pain in the right-sided abdomen and right flank otherwise denies any other complaints. She seems to have very slight left-sided facial droop and neglect to the left arm and leg Onset (ago): day(s) Treatments prior to arrival: none Related Data Home Medications Medication Instructions Recorded Confirmed amlodipine 10 mg tablet 10 mg PO DAILY 06/07/20 09/30/20 atorvastatin 40 mg tablet 40 mg PO BEDTIME 06/07/20 09/30/20 dronedarone 400 mg tablet 400 mg PO BID 06/07/20 09/30/20 gabapentin 300 mg capsule 300 mg PO BEDTIME 06/07/20 09/30/20 losartan 100 mg tablet 100 mg PO DAILY 06/07/20 09/30/20 metformin 500 mg tablet,extended 500 mg PO BEDTIME 06/07/20 09/30/20 release 24 hr metoprolol tartrate 50 mg tablet 100 mg PO BID 06/07/20 09/30/20 multivit with 1 tab PO QAM 06/07/20 09/30/20 bqcfqrsa-nzmn-HH-lutein 8 mg iron-400 mcg-300 mcg tablet omeprazole 20 mg capsule,delayed 20 mg PO DAILY 06/07/20 09/30/20 release oxycodone 5 mg tablet 5 mg PO Q12H PRN 06/07/20 09/30/20 prazosin 5 mg capsule 5 mg PO BEDTIME 06/07/20 09/30/20 sertraline 25 mg tablet 25 mg PO QAM 06/07/20 09/30/20 spironolactone 25 mg tablet 25 mg PO DAILY 06/07/20 09/30/20 apixaban 5 mg tablet 5 mg PO BID 08/17/20 09/30/20 acetaminophen 1,000 mg PO Q8H PRN 09/30/20 09/30/20 calcium citrate 500 mg PO DAILY 09/30/20 09/30/20 levothyroxine 125 mcg PO QAM 09/30/20 09/30/20 temazepam 7.5 mg PO BEDTIME PRN 09/30/20 09/30/20 Previous Rx's Medication Instructions Recorded cholecalciferol (vitamin D3) 25 25 mcg PO DAILY 30 Days #30 cap 09/22/20 mcg (1,000 unit) capsule Allergies Allergy/AdvReac Type Severity Reaction Status Date / Time No Known Allergies Allergy Verified 09/27/20 20:52 [No Known Allergies*] Review of Systems Review of Systems: Right-sided flank pain otherwise She essentially says no to everything on a 12 point review of system Yes Unobtainable due to mental condition PMFSH Past Medical History Medical History (Updated 09/30/20 @ 21:00 by Uriel Augustin NP) Afib Atrophy of left kidney CKD stage 4 due to type 2 diabetes mellitus CVA (cerebral vascular accident) Diabetes type 2, controlled Hypertension Left-sided weakness Osteoporosis Papillary carcinoma, follicular variant Post-surgical hypothyroidism Vitamin D deficiency Surgical History Hx of section Family History Family History Father No problems noted. Mother No problems noted. Social History Social History Advance Directives: No Advance Directives Information Provided: No Physical Exam Vital Signs: Vital Signs: Last Vital Signs Temp 99.3 F 09/30/20 19:57 Pulse 113 H 09/30/20 19:57 Resp 20 09/30/20 19:57 BP 121/55 L 09/30/20 19:57 Pulse Ox 97 09/30/20 19:57 Body Mass Index 24.0 Reviewed Const: General: lethargic (Slightly lethargic appearing); No acute distress Nutritional Appearance: average body habitus and other (Frail, elderly) Orientation/consciousness: oriented to person, oriented to place (Since she knows this is hospital but unsure the name) and oriented to time HENMT: Head: Yes normal to inspection Ears: hearing grossly normal bilaterally Eyes: General: appearance normal, both eyes and all related structures Visual Mckeon: normal visual mckeon by confrontation Neck: Neck: Yes normal visual inspection, No positive Brudzinski's sign, No positive Kernig's sign and No tender Thyroid: Thyroid normal Chest: Chest palpation & inspection: normal inspection of the chest Resp: Effort & Inspection: normal respiratory effort Auscultation: clear to auscultation bilaterally Cardio: Jugular venous distension: no JVD Rhythm: abnormal rhythm (Bedside monitor AFib rate 110) irregularly irregular GI: Inspection: Yes normal to inspection Palpation (GI): Soft to palpation and nontender Percussion: Yes normal to percussion Auscultation: normal bowel sounds : General: Yes no CVA tenderness Back/Spine/Pelvis: Back: no CVA tenderness Skin: General skin exam: no rashes or lesions noted Neuro: General: oriented to person and oriented to time Extrem: General: Yes normal to inspection NIH Stroke Scale Internal: Initial- Upon Arrival Level of Consciousness: Alert Level of Consciousness Questions: Answers both questions correctly Level of Consciousness Commands: Performs both tasks correctly Best Gaze: Normal Visual: No visual loss Facial Palsy: Minor paralyis Motor Arm (Right): No drift Motor Arm (Left): No effort against gravity Motor Leg (Right): No drift Motor Leg (Left): Some effort against gravity Limb Ataxia: Present in one limb Sensory: Normal Best Language: No aphasia Dysarthia: Normal Extinction and Inattention: No abnormality Score: 7 Course Reevaluation(s) Reevaluation #1: 1536 Sister Keiko Serrano [phone] Primary Barbadian-speaking phone interview with hospital healthcare interpreter present No designated health care proxy and sister can be called if anything is needed emergently, never had discussions regarding code status She confirms some of the medical history in addition she states that patient suffered a stroke in 2014 that left her with left-sided neck leg but able to do certain activities. - Sunday09/26/2020 Son in [place] and his girlfriend who is a community sent pictures of the patient to the son in penitentiary when she had a stroke with the residual left-sided weakness and while she was having a discussion with her son this made her very upset given that the son had to see her that way and ever since she has seemed ?down? Less active -Wednesday 09/27 Two days later complaint of right-sided flank pain for which she was evaluated as noted in the HPI above States she is usually pretty independent can go up and down the stairs and since being discharged she has progressively gotten worse she had episode of nausea and vomiting as well she seems to be neglecting her left arm and left leg more feel and look ?stiff? Labs including cardiac enzymes, chest x-ray, head CT as well as abdominal pelvis CT, will also check COVID and stratification labs. She is not a tPA candidate given that she is on Eliquis and onset of symptoms being greater than several days now. At this time there is no overt signs of infectious process. Reevaluation #2: 1630 CT of the head does not show any acute findings. Lab work pending. Remains comfortable in no acute distress laying. [address] [place] [facility] inflammatory process ? Cholecystitis vs colon related would be helpful to get US per rad request. Labs showed leukocytosis of 16 and was 7.4 3 days ago Dose of Zosyn ordered given these nonspecific findings and elevated white count and infection is suspected at this time pulmonary versus abdominal. bedside monitor elevated heart rate ain AFib rate anywhere from 98-110 Troponin has also bumped significantly from last visit which was 15.7 and today is 208.1 otherwise EKG 9 diagnostic X-ray concerning for ground-glass however her rapid COVID test is negative; CT of the chest ordered COVID stratification labs are elevated Renal function is also slightly bumped from previous Visit Furthermore BNP also elevated however lung sounds clear to auscultation and clinically she appears dry there is no lower extremity edema. Clinically does not need diuresis. CT of the head does not show any acute findings. She is currently laying in supine position 45 degrees, easy to arouse to verbal stimuli and states she has no pain at this time. Given up to to Sister William. Reevaluation #3: 1530 I did ask ultrasound to do bedside ultrasound currently in progress. Consultations Consultation #1: 1830 Case discussed with general surgery Dr. Masterson including the CT findings as well as the ultrasound findings consistent with acute cholecystitis given the extensive medical history and anticoagulation recommendation for antibiotics and admit to Medicine for medical management and will follow. Recommendation will be cholecystectomy tube in a.m. Consultation #2: 1835 Case discussed with cardiology Dr. Randle no acute interventions from cardiology standpoint. Consultation #3: 1900 Case discussed with hospitalist for admission. Medical Decision Making MDM Narrative Medical decision making narrative: In review this is a 74-year-old female primarily Barbadian-speaking with past medical history of CVA in 2014 when she was in [place] with residual left-sided weakness, osteoporosis, hypothyroidism, papillary carcinoma with thyroidectomy, left kidney atrophy, osteoporosis, diabetes, hypertension, hyperlipidemia, chronic pain, depression, AFib chronically anticoagulated on Eliquis, CKD stage 4, and aortic valve disease who has had slow but gradual onset of constellation of symptoms over the past 5 days now workup reveals acute cholecystitis with also question of atypical pulmonary infection she has had some nausea and vomiting aspiration pneumonia considered. Furthermore she has had some significant electrolyte derangement as well in the setting of this. She sepsis criteria and was given Zosyn and Flagyl in the ED. case was discussed with general surgery recommended admission to medical services for possible cholecystectomy tube in the morning, case discussed with Cardiology from the acutely elevated troponin likely from the AFib and not acute coronary syndrome no further recommendation was recommended at this time from cardiology standpoint. Medical Records Medical records reviewed: Yes I reviewed the patient's medical records. Medical records narrative: ED visit from September 28 2020 Lab Data Lab results reviewed: Yes I reviewed the patient's lab results. Result diagrams: 09/30/20 16:02 09/30/20 16:02 Labs: Lab Results 09/30/20 09/30/20 09/30/20 Range/Units 16:02 16:02 16:02 WBC 16.0 H (4.8-10.8) X10*3/uL RBC 4.50 (4.20-5.50) X10*6/uL Hgb 13.3 (12.0-16.0) g/dl Hct 39.3 (37-47) % MCV 87.3 (80-98) fL MCH 29.6 (27.0-33.0) pg MCHC 33.8 (31.0-35.0) g/dl RDW 12.7 (11.0-16.0) % Plt Count 104 L (160-400) X10*3/uL MPV 12.2 (9.4-12.3) fL Immature Gran % (Auto) 4.1 H (0.0-0.4) % Neut % (Auto) 81.0 H (45-73) % Lymph % (Auto) 6.4 L (20-40) % [place] % (Auto) 8.4 (2-11) % Eos % (Auto) 0.0 (0-4) % Baso % (Auto) 0.1 (0-2) % Lymph # (Auto) 1.0 L (1.2-4.9) X10*3/uL [place] # (Auto) 1.3 H (0.1-1.2) X10*3/uL Eos # (Auto) 0.0 (0.0-0.4) X10*3/uL Baso # (Auto) 0.0 (0.0-0.2) X10*3/uL Abs Immat Gran (auto) 0.65 H (0.00-0.03) X10*3/uL Absolute Neuts (auto) 13.0 H (2.0-8.3) X10*3/uL Absolute Nucleated RBC 0.000 (0.0-0.012) X10*3/uL Nucleated RBC % (auto) 0.0 (0.0-0.2) /100WBC PT 34.7 H (10.8-13.0) SEC INR 2.9 H (0.9-1.1) APTT 41.3 H (24.1-38.0) SEC Sodium 136 (135-145) mmol/L Potassium 4.3 (3.3-5.1) mmol/L Chloride 105 (96-108) mmol/L Carbon Dioxide 23 (22-29) mmol/L Anion Gap 12 (12-20) BUN 26 H D (9-16) mg/dL Creatinine 1.58 H (0.5-1.4) mg/dL Estim Creat Clear Calc 25.2 Estimated GFR 32 Random Glucose 186 H (60-115) mg/dL Lactic Acid (0.5-2.0) mmol/L Calcium 8.6 (8.4-10.2) mg/dL Ferritin 286 H (10-250) ng/mL Total Bilirubin 1.9 H (0.0-1.0) mg/dL AST 20 (5-31) U/L ALT 14 (0-31) U/L Alkaline Phosphatase 52 D (39-117) U/L Lactate Dehydrogenase 187 (122-220) U/L Troponin I High Sens (<3.5-17.0) ng/L C-Reactive Protein 26.38 H (< or = 0.50) mg/dL B-Natriuretic Peptide (<100) pg/mL Total Protein 6.0 L (6.5-8.0) g/dL Albumin 3.3 L (3.5-5.0) g/dL Procalcitonin ng/mL Urine Color Urine Appearance Urine pH (5.0-8.0) Ur Specific [place] (1.005-1.025) Urine Protein (NEG-TRACE) MG/DL Urine Glucose (UA) (NEG) MG/DL Urine Ketones (NEG) MG/DL Urine Blood (NEG) Urine Nitrite (NEG) Ur Leukocyte Esterase (NEG) Urine RBC (0) /HPF Urine WBC (0-4) /HPF Ur Squamous Epith Cells /LPF Urine Bacteria /LPF Coronavirus (PCR) (Negative) Influenza Type A (PCR) (Negative) Influenza Type B (PCR) (Negative) RSV RNA Qual (PCR) (Negative) 09/30/20 09/30/20 09/30/20 Range/Units 16:02 16:02 16:02 WBC (4.8-10.8) X10*3/uL RBC (4.20-5.50) X10*6/uL Hgb (12.0-16.0) g/dl Hct (37-47) % MCV (80-98) fL MCH (27.0-33.0) pg MCHC (31.0-35.0) g/dl RDW (11.0-16.0) % Plt Count (160-400) X10*3/uL MPV (9.4-12.3) fL Immature Gran % (Auto) (0.0-0.4) % Neut % (Auto) (45-73) % Lymph % (Auto) (20-40) % [place] % (Auto) (2-11) % Eos % (Auto) (0-4) % Baso % (Auto) (0-2) % Lymph # (Auto) (1.2-4.9) X10*3/uL [place] # (Auto) (0.1-1.2) X10*3/uL Eos # (Auto) (0.0-0.4) X10*3/uL Baso # (Auto) (0.0-0.2) X10*3/uL Abs Immat Gran (auto) (0.00-0.03) X10*3/uL Absolute Neuts (auto) (2.0-8.3) X10*3/uL Absolute Nucleated RBC (0.0-0.012) X10*3/uL Nucleated RBC % (auto) (0.0-0.2) /100WBC PT (10.8-13.0) SEC INR (0.9-1.1) APTT (24.1-38.0) SEC Sodium (135-145) mmol/L Potassium (3.3-5.1) mmol/L Chloride (96-108) mmol/L Carbon Dioxide (22-29) mmol/L Anion Gap (12-20) BUN (9-16) mg/dL Creatinine (0.5-1.4) mg/dL Estim Creat Clear Calc Estimated GFR Random Glucose (60-115) mg/dL Lactic Acid 2.0 (0.5-2.0) mmol/L Calcium (8.4-10.2) mg/dL Ferritin (10-250) ng/mL Total Bilirubin (0.0-1.0) mg/dL AST (5-31) U/L ALT (0-31) U/L Alkaline Phosphatase (39-117) U/L Lactate Dehydrogenase (122-220) U/L Troponin I High Sens 208.1 H D (<3.5-17.0) ng/L C-Reactive Protein (< or = 0.50) mg/dL B-Natriuretic Peptide 992 H (<100) pg/mL Total Protein (6.5-8.0) g/dL Albumin (3.5-5.0) g/dL Procalcitonin ng/mL Urine Color Urine Appearance Urine pH (5.0-8.0) Ur Specific [place] (1.005-1.025) Urine Protein (NEG-TRACE) MG/DL Urine Glucose (UA) (NEG) MG/DL Urine Ketones (NEG) MG/DL Urine Blood (NEG) Urine Nitrite (NEG) Ur Leukocyte Esterase (NEG) Urine RBC (0) /HPF Urine WBC (0-4) /HPF Ur Squamous Epith Cells /LPF Urine Bacteria /LPF Coronavirus (PCR) NEGATIVE (Negative) Influenza Type A (PCR) NEGATIVE (Negative) Influenza Type B (PCR) NEGATIVE (Negative) RSV RNA Qual (PCR) NEGATIVE (Negative) 09/30/20 09/30/20 09/30/20 Range/Units 16:02 18:00 18:37 WBC (4.8-10.8) X10*3/uL RBC (4.20-5.50) X10*6/uL Hgb (12.0-16.0) g/dl Hct (37-47) % MCV (80-98) fL MCH (27.0-33.0) pg MCHC (31.0-35.0) g/dl RDW (11.0-16.0) % Plt Count (160-400) X10*3/uL MPV (9.4-12.3) fL Immature Gran % (Auto) (0.0-0.4) % Neut % (Auto) (45-73) % Lymph % (Auto) (20-40) % [place] % (Auto) (2-11) % Eos % (Auto) (0-4) % Baso % (Auto) (0-2) % Lymph # (Auto) (1.2-4.9) X10*3/uL [place] # (Auto) (0.1-1.2) X10*3/uL Eos # (Auto) (0.0-0.4) X10*3/uL Baso # (Auto) (0.0-0.2) X10*3/uL Abs Immat Gran (auto) (0.00-0.03) X10*3/uL Absolute Neuts (auto) (2.0-8.3) X10*3/uL Absolute Nucleated RBC (0.0-0.012) X10*3/uL Nucleated RBC % (auto) (0.0-0.2) /100WBC PT (10.8-13.0) SEC INR (0.9-1.1) APTT (24.1-38.0) SEC Sodium (135-145) mmol/L Potassium (3.3-5.1) mmol/L Chloride (96-108) mmol/L Carbon Dioxide (22-29) mmol/L Anion Gap (12-20) BUN (9-16) mg/dL Creatinine (0.5-1.4) mg/dL Estim Creat Clear Calc Estimated GFR Random Glucose (60-115) mg/dL Lactic Acid (0.5-2.0) mmol/L Calcium (8.4-10.2) mg/dL Ferritin (10-250) ng/mL Total Bilirubin (0.0-1.0) mg/dL AST (5-31) U/L ALT (0-31) U/L Alkaline Phosphatase (39-117) U/L Lactate Dehydrogenase (122-220) U/L Troponin I High Sens 184.5 H (<3.5-17.0) ng/L C-Reactive Protein (< or = 0.50) mg/dL B-Natriuretic Peptide (<100) pg/mL Total Protein (6.5-8.0) g/dL Albumin (3.5-5.0) g/dL Procalcitonin 5.65 ng/mL Urine Color YELLOW Urine Appearance CLEAR Urine pH 5.5 (5.0-8.0) Ur Specific [place] 1.020 (1.005-1.025) Urine Protein 2+ H (NEG-TRACE) MG/DL Urine Glucose (UA) NEG (NEG) MG/DL Urine Ketones NEG (NEG) MG/DL Urine Blood 1+ H (NEG) Urine Nitrite NEG (NEG) Ur Leukocyte Esterase NEG (NEG) Urine RBC 1-4 (0) /HPF Urine WBC 0 (0-4) /HPF Ur Squamous Epith Cells NONE /LPF Urine Bacteria 1+ /LPF Coronavirus (PCR) (Negative) Influenza Type A (PCR) (Negative) Influenza Type B (PCR) (Negative) RSV RNA Qual (PCR) (Negative) Imaging Data Head CT: Radiologist's impression: [address] [id number] Scan ReportSigned Patient: Adrian Serrano#: [id number]: 8Acct:[id number]/Sex: 74 / FADM Date: 09/30/20Loc: EDAttending Dr: Ordering Physician: Uriel Augustin NP Date of Service: 09/30/20 Procedure(s): CT head/brain wo con Accession Number(s): [id number] cc: Uriel Augustin PUBLIC ADDRESS SYSTEMS MECHANIC~ EXAMINATION: CT HEAD WITHOUT CONTRAST CLINICAL INFORMATION: Weakness COMPARISON: 05/14/2017 TECHNIQUE: Contiguous axial imaging was performed from the skull base to vertex without intravenous administration of contrast. This CT examination was performed using dose optimization techniques as appropriate, variously including the following: *Automated exposure control *Adjustment of mA and/or kV according to patient size (this includes techniques or standardized protocols for targeted exams where dose is matched to indication/reason for exam; i.e. 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 Symmetrical white matter changes most consistent with terminal supply white matter chronic lacunar ischemic/infarct involving the ferrara radiata and centrum semiovale. Old appearing lacunar infarct versus prominent perivascular space right lentiform nucleus adjacent to the kidney with internal capsule There is no evidence of acute intracranial hemorrhage or territorial infarction. No abnormal mass effect or midline shift is seen. [place] to white matter differentiation is well preserved. No extra-axial fluid collections are identified. The ventricles are normal in size. The osseous structures and soft tissues are normal. The mastoid air cells and visualized portions of the paranasal sinuses are well aerated. Limitations due to motion degradation. CT/CT head/brain wo con IMPRESSION: No acute intracranial pathology. Chronic findings as above. Dictated By:JAYLEEN MCKENZIE MDSigned By:<Electronically signed by JAYLEEN MCKENZIE MD in OV>09/30/20 1659 DD/ 1533TD/TT: Patient Support Specialist: MARIAJOSE Chest x-ray: Radiologist's impression: [address] [id number] ReportSigned Patient: Cynthia SerranoR#: [id number]: 8Acct:[id number]/Sex: 74 / FADM Date: 09/30/20Loc: HO.EDAttending Dr: Ordering Physician: Uriel Augustin PUBLIC ADDRESS SYSTEMS MECHANIC Date of Service: 09/30/20 Procedure(s): XR chest 1V Accession Number(s): [id number] cc: Uriel Augustin PUBLIC ADDRESS SYSTEMS MECHANIC~ EXAMINATION: XR CHEST CLINICAL INFORMATION: Weakness, altered mental status, or abdominal pain. COMPARISON: Chest radiographs 09/28/2020, 02/23/2020 TECHNIQUE: Portable upright AP view of the chest was obtained. FINDINGS: Heart is within limits of normal size. There is mild fullness central vasculature. There is no vascular congestion or lobar segmental airspace consolidation. There is questionable groundglass opacity right suprahilar region. No air bronchograms. No effusion. Again, there are degenerative changes thoracic spine and bilateral shoulder arthropathy. XR/XR chest 1V IMPRESSION: Questionable groundglass opacity right suprahilar region. Lungs otherwise clear. No effusion. Dictated By:RITESH LANDA MDSigned By:<Electronically signed by RITESH LANDA MD in OV>09/30/20 1606 DD/ 1533TD/TT: Patient Support Specialist: KATELYN Abdominal/pelvis CT: Radiologist's impression: [address] [id number] Scan ReportSigned Patient: Adrian Serrano#: [id number]: 8Acct:[id number]/Sex: 74 / FADM Date: 09/30/20Loc: HO.EDAttending Dr: Ordering Physician: Uriel Augustin PUBLIC ADDRESS SYSTEMS MECHANIC Date of Service: 09/30/20 Procedure(s): CT abdomen pelvis wo con Accession Number(s): [id number] cc: Uriel Augustin PUBLIC ADDRESS SYSTEMS MECHANIC~ EXAMINATION: CT ABDOMEN AND PELVIS WITHOUT CONTRAST CLINICAL INFORMATION: Altered mental status, weakness and abdominal pain. COMPARISON: CT abdomen and pelvis just 2 days ago 09/28/[address] abdomen and pelvis 02/23/2020. TECHNIQUE: Multidetector volumetric imaging was performed from the superior aspect of the liver through the pubic symphysis. Sagittal and coronal reformatted images were obtained on the technologist's workstation. This CT examination was performed using dose optimization techniques as appropriate, variously including the following: *Automated exposure control. *Adjustment of mA and/or kV according to patient size (this includes techniques or standardized protocols for targeted exams where dose is matched to indication/reason for exam; i.e. extremities or head). *Use of iterative reconstruction technique. DLP: 672 mGy-cm FINDINGS: LUNG BASES: Since the prior study, bibasilar atelectasis has developed. Cardiomegaly remains present. No pleural effusions or pericardial effusion is seen. LIVER, GALLBLADDER, AND BILIARY TREE: The liver is normal in size, shape, and attenuation. No focal hepatic lesion or biliary ductal dilatation is present. The gallbladder is distended. High density material is seen layering in the gallbladder suggestive of cholecystitis. The gallbladder wall appears thickened and some inflammatory changes are present around the gallbladder. Inflammatory change extends towards the ascending colon as well as the lateral fascial surfaces and the lower portion of the anterior pararenal fascia. These were not present on the 02/23/2020 study but some minimal inflammatory change may have been present on the study from 2 days ago. I think it is warranted to obtain a right upper quadrant ultrasound for further evaluation. It is possible, although I think significantly less likely, that this process is related to diverticulitis of the ascending colon affecting the gallbladder. PANCREAS: Unremarkable. SPLEEN: Unremarkable. ADRENAL GLANDS: Unremarkable. KIDNEYS AND URETERS: The kidneys are normal in size, shape, and attenuation. 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 On the right, there is some mild prominence of the collecting system which may be due to the above-mentioned inflammatory process. No gross hydronephrosis is seen. No hydroureter or renal calculi seen. BLADDER: Unremarkable. GASTROINTESTINAL TRACT: Colonic diverticular changes are present. There is no evidence of diverticulitis. The small and large bowel are unremarkable. The appendix is unremarkable. ABDOMINAL WALL: No significant hernia is appreciated. LYMPH NODES: Normal. VASCULAR: Calcific atherosclerotic plaque present in the aorta and iliac vessels. PELVIC VISCERA: There is new free intraperitoneal fluid. Only a tiny bit was present previously and none was seen in the 02/23/2020 study. An anteverted uterus is present. An abnormal adnexal mass is not seen. OSSEOUS STRUCTURES: Degenerative changes present but no bony destructive lesions. CT/CT abdomen pelvis wo con IMPRESSION: 1. Enlarged gallbladder with probable stones and surrounding inflammatory change, most likely representing cholecystitis. Free pelvic fluid is present probably secondary to inflammatory process. A right upper quadrant ultrasound is recommended for further evaluation. The inflammatory process extends to the ascending colon. If the diagnosis is not cholecystitis, certainly diverticulitis would be a possibility. 2. Stable right renal artery aneurysm. This critical result was discussed with JASMYNE Bar at 5:15 PM on the day of the exam and it was ascertained that the content and urgency of the report was understood at the time of direct communication. A right upper quadrant ultrasound is being ordered. Dictated By:RITESH MCBRIDE MDSigned By:<Electronically signed by RITESH MCBRIDE MD in [place]>09/30/20 1751 DD/ 1534TD/TT: Patient Support Specialist: MIKAELA Chest CT: Radiologist's impression: [address] [id number] Scan ReportSigned Patient: Cynthia SerranoR#: [id number]: 8Acct:[id number]/Sex: 74 / FADM Date: 09/30/20Loc: HO.EDAttending Dr: Ordering Physician: Uriel Augustin NP Date of Service: 09/30/20 Procedure(s): CT chest wo con Accession Number(s): [id number] cc: Uriel Augustin NP~ EXAMINATION: CT CHEST WITHOUT CONTRAST CLINICAL INFORMATION: Follow-up chest x-ray, weakness COMPARISON: Radiographs the same day TECHNIQUE: Multidetector volumetric CT imaging of the chest was done. Axial MIP volume rendering provided. Sagittal and coronal reformatted images were obtained. This CT examination was performed using dose optimization techniques as appropriate, variously including the following: *Automated exposure control *Adjustment of mA and/or kV according to patient size (this includes techniques or standardized protocols for targeted exams where dose is matched to indication/reason for exam; i.e. 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 They're with assess of groundglass opacities but there are minor lower lobe airspace disease consistent atelectasis or pneumonia. No specific findings of atypical infection grossly. No pleural effusion. No discrete nodule or mass. MEDIASTINUM: The mediastinum is normal. PLEURA: There is no pleural effusion. No pleural mass or thickening. AXILLA: No lymphadenopathy. UPPER ABDOMEN: Low-density focus inferiorly right lobe similar to recent CT of the abdomen 09/28/2020. OSSEOUS STRUCTURES: Unremarkable. CT/CT chest wo con IMPRESSION: Minor bibasilar airspace disease. No specific findings of atypical infection. No mass. Dictated By:JAYLEEN MCKENZIE MDSigned By:<Electronically signed by JAYLEEN MCKENZIE MD in [place]>09/30/201813 DD/ 1707TD/TT: Patient Support Specialist: MARIAJOSE Abdominal ultrasound: Radiologist's impression: [address] [id number] ReportSigned Patient: Adrian Serrano#: [id number]: 8Acct:[id number]/Sex: 74 / FADM Date: 09/30/20Loc: [email or web address].EDAttending Dr: Ordering Physician: Uriel Augustin NP Date of Service: 09/30/20 Procedure(s): US abdomen limited Accession Number(s): [id number] cc: Uriel Augustin PUBLIC ADDRESS SYSTEMS MECHANIC~ EXAMINATION: US ABDOMEN LIMITED CLINICAL INFORMATION: Abdominal pain with abnormal CT scan suggesting abnormal gallbladder versus diverticular disease ascending colon. COMPARISON: CT scan performed earlier today along with abdominal ultrasound 06/14/2017 TECHNIQUE: Real-time imaging of the right upper quadrant abdominal viscera. FINDINGS: PANCREAS: Normal. LIVER: The liver is normal in size. The liver contour is normal. Parenchymal echogenicity is normal. No focal hepatic lesion. There is no intrahepatic biliary duct dilatation seen. GALLBLADDER: Gallstones are present along with echogenic bile. The gallbladder wall is thickened measuring 6.8 mm. A small amount of pericholecystic fluid is present. In addition, the patient is tender over the gallbladder with compression. These findings are highly suggestive acute cholecystitis. On the 2017 ultrasound, the gallbladder was normal. COMMON BILE DUCT: Normal in caliber measuring 0.3 cm in diameter. RIGHT KIDNEY: No hydronephrosis. No renal calculi or focal parenchymal lesions. The kidney measures 9.4 cm in maximum dimension. FREE FLUID: None. US/US abdomen limited IMPRESSION: Distended thick-walled gallbladder with stones and echogenic bile with some pericholecystic fluid and positive David sign. Findings suggestive of acute cholecystitis. Dictated By:RITESH MCBRIDE MDSigned By:<Electronically signed by RITESH MCBRIDE MD in [place]>09/30/20 1841 DD/ 1712TD/TT: Patient Support Specialist: ECG Data Interpretation: 1. Atrial fibrillation with rapid ventricular response Voltage criteria for left ventricular hypertrophy Rate [address] abnormality, possible lateral subendocardial injury Abnormal ECG When compared with ECG of 28-SEP-2020 01:04, Atrial fibrillation has replaced Sinus rhythm Vent. rate has increased BY 49 BPM 2. repeat Atrial fibrillation with rapid ventricular response Voltage criteria for left ventricular hypertrophy Rate 104 ST & T wave abnormality, consider lateral ischemia Abnormal ECG When compared with ECG of 30-SEP-2020 15:38, No significant change was found Critical Care Time Critical Care Time Critical Care Time: Yes Total Critical Care Time: 65 Attestation: Patient presented as possible acute altered mental status requiring rapid medical evaluation at bedside directly upon arrival, multiple evaluations at bedside for management of neurovascular/cardiovascular status and stabilization. Correlation of care with multiple specialties and family. Discharge Plan Discharge Clinical Impression: Acute cholecystitis, Sepsis, Pneumonia Patient Disposition: Admitted As Inpatient
--- NOTE | 2020-09-30 15:33 | ECG_ITS ---
Test Reason : WEAKNESS Blood Pressure : / mmHG Vent. Rate : 102 BPM Atrial Rate : 046 BPM P-R Int : 000 ms QRS Dur : 088 ms QT Int : 320 ms P-R-T Axes : 000 -14 141 degrees QTc Int : 417 ms Atrial fibrillation with rapid ventricular response Voltage criteria for left ventricular hypertrophy Marked ST abnormality, possible lateral subendocardial injury Abnormal ECG When compared with ECG of 28-SEP-2020 01:04, Atrial fibrillation has replaced Sinus rhythm Vent. rate has increased BY 49 BPM Referred By: Uriel Augustin Electronically Signed By:JAMIE NAQVI
[2020-09-30 16:13] LABS: MANUAL DIFF FLAG NO
[2020-09-30 16:20] LABS: Basophils Percent Auto 0.1 % (0-2); Hematocrit 39.3 % (37-47); Hemoglobin 13.3 g/dl (12.0-16.0); Imm Gran Abs Auto 0.65 X10*3/uL (0.00-0.03); Imm Gran Pct Auto 4.1 % (0.0-0.4); Lymphocytes Percent Auto 6.4 % (20-40); Mean Corpuscular HGB Conc 33.8 g/dl (31.0-35.0); Mean Corpuscular Hemoglobin 29.6 pg (27.0-33.0); Mean Corpuscular Volume 87.3 fL (80-98); Mean Platelet Volume 12.2 fL (9.4-12.3); Monocytes Absolute Auto 1.3 X10*3/uL (0.1-1.2); Monocytes Percent Auto 8.4 % (2-11); Platelet Count 104 X10*3/uL (160-400); Red Cell Distribution Width 12.7 % (11.0-16.0)
[2020-09-30 16:21] LABS: INTERNATIONAL NORM RATIO 2.9 (0.9-1.1); Prothrombin Time 34.7 SEC (10.8-13.0)
[2020-09-30 16:24] LABS: Partial Thromboplastin Time 41.3 SEC (24.1-38.0)
[2020-09-30 16:50] LABS: Influenza A PCR NEGATIVE (Negative); Influenza B PCR NEGATIVE (Negative); Resp Syncy Virus RNA Qual PCR NEGATIVE (Negative); SARS COV2 PCR INHOUSE NEGATIVE (Negative)
[2020-09-30 16:54] LABS: Alanine Aminotransferase 14 U/L (0-31); Albumin Level 3.3 g/dL (3.5-5.0); Alkaline Phosphatase 52 U/L (39-117); Anion Gap 12 (12-20); Aspartate Amino Transferase 20 U/L (5-31); Bilirubin Total 1.9 mg/dL (0.0-1.0); Blood Urea Nitrogen 26 mg/dL (9-16); Calcium 8.6 mg/dL (8.4-10.2); Carbon Dioxide 23 mmol/L (22-29); Chloride 105 mmol/L (96-108); Creatinine Clr Calc Pharmacy 25.2; Estimated Glomerular Filt Rate 32; Glucose Random 186 mg/dL (60-115); Potassium 4.3 mmol/L (3.3-5.1); Sodium 136 mmol/L (135-145)
[2020-09-30 16:55] LABS: B Type Natriuretic Peptide 992 pg/mL (<100); Troponin-I High Sensitivity 208.1 ng/L (<3.5-17.0)
[2020-09-30 17:14] LABS: C Reactive Protein 26.38 mg/dL (< or = 0.50); Lactate Dehydrogenase 187 U/L (122-220)
[2020-09-30 17:36] LABS: Ferritin 286 ng/mL (10-250)
[2020-09-30 17:40] LABS: Procalcitonin 5.65 ng/mL
[2020-09-30 18:14] LABS: Glucose Urine UA NEG (NEG); Leukocyte Esterase Urine NEG (NEG); Nitrite Urine NEG (NEG); PH 5.5 (5.0-8.0); Urine Blood 1+ (NEG); Urine Ketones NEG (NEG); Urine Protein 2+ MG/DL (NEG-TRACE)
[2020-09-30 18:17] LABS: Appearance Urine CLEAR; Color Urine YELLOW
--- NOTE | 2020-09-30 18:18 | ECG_ITS ---
Test Reason : ABDOMINAL PAIN Blood Pressure : / mmHG Vent. Rate : 104 BPM Atrial Rate : 416 BPM P-R Int : 000 ms QRS Dur : 090 ms QT Int : 322 ms P-R-T Axes : 000 -08 127 degrees QTc Int : 423 ms Atrial fibrillation with rapid ventricular response Voltage criteria for left ventricular hypertrophy ST & T wave abnormality, consider lateral ischemia Abnormal ECG When compared with ECG of 30-SEP-2020 15:38, No significant change was found Referred By: Uriel Augustin Electronically Signed By:JAMIE NAQVI
[2020-09-30 18:27] LABS: Bacteria Urine 1+ /LPF; WBC Urine 0 /HPF (0-4)
[2020-09-30] MEDS: Piperacillin Sodium/Tazobactam 3.375 GM in 0.9 % Sodium Chloride 50 ML IV (18:43)
[2020-09-30 19:23] LABS: Troponin-I High Sensitivity 184.5 ng/L (<3.5-17.0)
[2020-09-30] MEDS: metroNIDAZOLE/NS 500 MG/100 ML PIGGYBACK 100 MG IV (19:33)
--- NOTE | 2020-09-30 19:45 | P.HPHOSP_ITS ---
History of Present Illness Date of Service: 09/30/20 Chief Complaint: Right-sided abdominal pain 74-year-old female with a past medical history of hypertension, hyperlipidemia, diabetes, CVA with residual left-sided weakness, AFib on Eliquis, osteoporosis, hypothyroidism, vitamin-D deficiency, history of atrophic kidney, CKD presented to the hospital with a chief complaint of right-sided flank pain/abdominal pain the past few days. Patient is a poor historian, Vincentian-speaking. Most of the history obtained fr om the ER team and records. Reportedly patient has been having the right-sided abdominal pain for the past few days, associated with nausea and vomiting. Denies any chest pain lightheadedness. Denies any fever chills. Denies any cough. Denies any urinary symptoms. Denies any diarrhea. As symptoms were not improving and subsequently sent to the ER for further evaluation. Review of all other systems is negative except mentioned above ER course: Per ER team patient was initially appeared lethargic, CT head showed no acute findings. ER team mentioned that patient gradually regained her mental status back to her normal. ER team also spoke to her sister as well. Mention the patient is a full code. On investigations patient noted to have leukocytosis, EKG with AFib with mild RVR., CT chest/CT abdomen showed findings concerning for acute cholecystitis and possible bibasilar pneumonia. Right upper quadrant ultrasound showed gallstones and acute cholecystitis. Blood cultures were sent. Started on Zosyn. ER team spoke to General surgery Dr. Masterson who suggested admission to the [facility] service and possibly a plan for cholecystostomy tube in the morning. Patient troponins were indeterminate, EKG nonischemic likely demand in the setting of rapid ventricular response; ER team mentioned that troponins plateaued and discussed with Dr. Randle, who mentioned no acute interventi on for now. 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 Mother No problems noted. Surgical History (Updated 10/01/20 @ 12:12 by Liliane Mcqueen MD) History of back surgery History of thyroidectomy History of tubal ligation Hx of section Social History Household Members: Family Housing: House Do you presently have visiting nurse or other home services: Yes (visiting nadine onofre) Smoking Status: Never smoker Use of substances other than those prescribed or required for medical reasons: No Currently Displaying Signs/Symptoms of Drug Intoxication Withdrawal: No Have you been hit, kicked, punched, or otherwise hurt by someone within the past year? If so, by whom?: No Do you feel safe in your current relationship?: No Current Relationship Is there a partner from a previous relationship who is making you feel unsafe now?: No Are you made to feel afraid or neglected: No Advance Directives: No Advance Directives Information Provided: No Do you have thoughts of harming others: None Do you have a plan to hurt others: No Plan Recently lost weight without trying: Unsure service: No Current occupational status: disabled Meds Allergies Allergy/AdvReac Type Severity Reaction Status Date / Time No Known Allergies Allergy Verified 09/27/20 20:52 [No Known Allergies*] Active Medications: Current Medications Generic Name Dose Route Start Last Admin Trade Name Freq PRN Reason Stop Dose Admin Amlodipine Besylate 10 mg 10/01/20 09:00 Amlodipine Besylate 10 Mg Tablet PO DAILY DINESH Protocol Atorvastatin Calcium 40 mg 09/30/20 21:00 Atorvastatin Calcium 40 Mg Tablet PO BEDTIME DINESH Dronedarone 400 mg 09/30/20 21:00 Dronedarone Hcl 400 Mg Tablet PO BID DINESH Gabapentin 300 mg 09/30/20 21:00 Gabapentin 300 Mg Capsule PO BEDTIME DINESH Metronidazole 500 mg in 100 mls @ 100 mls/hr 09/30/20 18:50 09/30/20 19:33 Flagyl IV 09/30/20 19:49 100 mls/hr ONCE ONE Administration Vancomycin HCl 1,000 mg/ 270 mls @ 270 mls/hr 09/30/20 19:45 Sodium Chloride IV Q12H DINESH Piperacillin Sod/Tazobactam 50 mls @ 100 mls/hr 09/30/20 19:45 Sod 2.25 gm/ Sodium Chloride IV Q6H DINESH Levothyroxine Sodium 125 mcg 10/01/20 06:00 Levothyroxine Sodium 125 Mcg Tablet PO DAILY@0600 COUNTS INCLUDE 234 BEDS AT THE [facility] Metoprolol Tartrate 100 mg 09/30/20 21:00 Metoprolol Tartrate 50 Mg Tablet PO BID COUNTS INCLUDE 234 BEDS AT THE [facility] Protocol Multivitamins/Minerals 1 tab 10/01/20 09:00 Multivitamin With Minerals Tablet PO DAILY COUNTS INCLUDE 234 BEDS AT THE [facility] Non-Formulary Medication 5 mg 09/30/20 19:39 Temazepam PO BEDTIME PRN Sleep Omeprazole 20 mg 10/01/20 06:30 Omeprazole 20 Mg Capsule. PO DAILY@0630 COUNTS INCLUDE 234 BEDS AT THE [facility] Oxycodone HCl 5 mg 09/30/20 19:39 Oxycodone Hcl Immed Release 5 Mg Tablet PO Q12H PRN pain Pharmacy Consult 1 each 09/30/20 19:41 Consult Rx Vancomycin Dosing MISCELLANE DAILY PRN Consult order Prazosin HCl 5 mg 09/30/20 21:00 Prazosin Hcl 5 Mg Capsule PO BEDTIME COUNTS INCLUDE 234 BEDS AT THE [facility] Protocol Sertraline HCl 25 mg 09/30/20 19:45 Sertraline Hcl 25 Mg Tablet PO QAM COUNTS INCLUDE 234 BEDS AT THE [facility] Vitamin D 25 mcg 10/01/20 09:00 Cholecalciferol (Vitamin D3) 25 Mcg Tablet PO DAILY COUNTS INCLUDE 234 BEDS AT THE [facility] Home Medications Medication Instructions Recorded Confirmed Last Taken Type amlodipine 10 mg tablet 10 mg PO DAILY 06/07/20 09/30/20 09/30/20 History atorvastatin 40 mg tablet 40 mg PO BEDTIME 06/07/20 09/30/20 09/29/20 History dronedarone 400 mg tablet 400 mg PO BID 06/07/20 09/30/20 09/30/20 History gabapentin 300 mg capsule 300 mg PO BEDTIME 06/07/20 09/30/20 09/29/20 History losartan 100 mg tablet 100 mg PO DAILY 06/07/20 09/30/20 09/30/20 History metformin 500 mg tablet,extended 500 mg PO BEDTIME 06/07/20 09/30/20 09/29/20 History release 24 hr metoprolol tartrate 50 mg tablet 100 mg PO BID 06/07/20 09/30/20 09/30/20 History multivit with 1 tab PO QAM 06/07/20 09/30/20 09/30/20 History hbtzinya-zzku-FV-lutein 8 mg iron-400 mcg-300 mcg tablet omeprazole 20 mg capsule,delayed 20 mg PO DAILY 06/07/20 09/30/20 09/30/20 History release oxycodone 5 mg tablet 5 mg PO Q12H PRN 06/07/20 09/30/20 09/30/20 History prazosin 5 mg capsule 5 mg PO BEDTIME 06/07/20 09/30/20 09/29/20 History sertraline 25 mg tablet 25 mg PO QAM 06/07/20 09/30/20 09/30/20 History spironolactone 25 mg tablet 25 mg PO DAILY 06/07/20 09/30/20 09/30/20 History apixaban 5 mg tablet 5 mg PO BID 08/17/20 09/30/20 09/30/20 History acetaminophen 1,000 mg PO Q8H PRN 09/30/20 09/30/20 Unknown History calcium citrate 500 mg PO DAILY 09/30/20 09/30/20 09/30/20 History levothyroxine 125 mcg PO QAM 09/30/20 09/30/20 09/30/20 History temazepam 7.5 mg PO BEDTIME PRN 09/30/20 09/30/20 Unknown History Physical Exam Vital Signs and Narrative: Vital Signs: Last Vital Signs Temp 98.9 F 09/30/20 19:39 Pulse 98 09/30/20 19:39 Resp 22 H 09/30/20 19:39 BP 131/55 L 09/30/20 19:39 Pulse Ox 95 09/30/20 19:39 Body Mass Index 24.0 Gen: Appears be in no acute distress HEENT: NCAT, Moist mucosa. Pulmonary: Vesicular breath sounds, fair air entry CVS: Normal S1-S2 Abdomen: BS+, Soft, tender in the right upper quadrant; no guarding no rigidity. Extremities: Warm well perfused Neuro: Alert and awake. Results Labs CBC and Chem 7: 10/02/20 08:35 10/02/20 08:35 Labs: Laboratory Results - last 24 hr 09/30/20 09/30/20 09/30/20 16:02 16:02 16:02 MCV 87.3 MCH 29.6 MCHC 33.8 RDW 12.7 Plt Count 104 L MPV 12.2 Immature Gran % (Auto) 4.1 H Neut % (Auto) 81.0 H Lymph % (Auto) 6.4 L [place] % (Auto) 8.4 Eos % (Auto) 0.0 Baso % (Auto) 0.1 Lymph # (Auto) 1.0 L [place] # (Auto) 1.3 H Eos # (Auto) 0.0 Baso # (Auto) 0.0 Abs Immat Gran (auto) 0.65 H Absolute Neuts (auto) 13.0 H Absolute Nucleated RBC 0.000 Nucleated RBC % (auto) 0.0 PT 34.7 H INR 2.9 H APTT 41.3 H Anion Gap 12 Estim Creat Clear Calc 25.2 Estimated GFR 32 Random Glucose 186 H Lactic Acid Calcium 8.6 Ferritin 286 H Total Bilirubin 1.9 H AST 20 ALT 14 Alkaline Phosphatase 52 D Lactate Dehydrogenase 187 Troponin I High Sens C-Reactive Protein 26.38 H B-Natriuretic Peptide Total Protein 6.0 L Albumin 3.3 L Procalcitonin Urine Color Urine Appearance Urine pH Ur Specific [place] Urine Protein Urine Glucose (UA) Urine Ketones Urine Blood Urine Nitrite Ur Leukocyte Esterase Urine RBC Urine WBC Ur Squamous Epith Cells Urine Bacteria Coronavirus (PCR) Influenza Type A (PCR) Influenza Type B (PCR) RSV RNA Qual (PCR) 09/30/20 09/30/20 09/30/20 16:02 16:02 16:02 MCV MCH MCHC RDW Plt Count MPV Immature Gran % (Auto) Neut % (Auto) Lymph % (Auto) [place] % (Auto) Eos % (Auto) Baso % (Auto) Lymph # (Auto) [place] # (Auto) Eos # (Auto) Baso # (Auto) Abs Immat Gran (auto) Absolute Neuts (auto) Absolute Nucleated RBC Nucleated RBC % (auto) PT INR APTT Anion Gap Estim Creat Clear Calc Estimated GFR Random Glucose Lactic Acid 2.0 Calcium Ferritin Total Bilirubin AST ALT Alkaline Phosphatase Lactate Dehydrogenase Troponin I High Sens 208.1 H D C-Reactive Protein B-Natriuretic Peptide 992 H Total Protein Albumin Procalcitonin Urine Color Urine Appearance Urine pH Ur Specific [place] Urine Protein Urine Glucose (UA) Urine Ketones Urine Blood Urine Nitrite Ur Leukocyte Esterase Urine RBC Urine WBC Ur Squamous Epith Cells Urine Bacteria Coronavirus (PCR) NEGATIVE Influenza Type A (PCR) NEGATIVE Influenza Type B (PCR) NEGATIVE RSV RNA Qual (PCR) NEGATIVE 09/30/20 09/30/20 09/30/20 16:02 18:00 18:37 MCV MCH MCHC RDW Plt Count MPV Immature Gran % (Auto) Neut % (Auto) Lymph % (Auto) [place] % (Auto) Eos % (Auto) Baso % (Auto) Lymph # (Auto) [place] # (Auto) Eos # (Auto) Baso # (Auto) Abs Immat Gran (auto) Absolute Neuts (auto) Absolute Nucleated RBC Nucleated RBC % (auto) PT INR APTT Anion Gap Estim Creat Clear Calc Estimated GFR Random Glucose Lactic Acid Calcium Ferritin Total Bilirubin AST ALT Alkaline Phosphatase Lactate Dehydrogenase Troponin I High Sens 184.5 H C-Reactive Protein B-Natriuretic Peptide Total Protein Albumin Procalcitonin 5.65 Urine Color YELLOW Urine Appearance CLEAR Urine pH 5.5 Ur Specific [place] 1.020 Urine Protein 2+ H Urine Glucose (UA) NEG Urine Ketones NEG Urine Blood 1+ H Urine Nitrite NEG Ur Leukocyte Esterase NEG Urine RBC 1-4 Urine WBC 0 Ur Squamous Epith Cells NONE Urine Bacteria 1+ Coronavirus (PCR) Influenza Type A (PCR) Influenza Type B (PCR) RSV RNA Qual (PCR) Imaging Radiologist's Impressions: Impressions Chest X-Ray 09/30/20 15:33 IMPRESSION: Questionable groundglass opacity right suprahilar region. Lungs otherwise clear. No effusion. Head CT 09/30/20 15:33 IMPRESSION: No acute intracranial pathology. Chronic findings as above. Abdomen/Pelvis CT 09/30/20 15:34 IMPRESSION: 1. Enlarged gallbladder with probable stones and surrounding inflammatory change, most likely representing cholecystitis. Free pelvic fluid is present probably secondary to inflammatory process. A right upper quadrant ultrasound is recommended for further evaluation. The inflammatory process extends to the ascending colon. If the diagnosis is not cholecystitis, certainly diverticulitis would be a possibility. 2. Stable right renal artery aneurysm. This critical result was discussed with JASMYNE Bar at 5:15 PM on the day of the exam and it was ascertained that the content and urgency of the report was understood at the time of direct communication. A right upper quadrant ultrasound is being ordered. Chest CT 09/30/20 17:07 IMPRESSION: Minor bibasilar airspace disease. No specific findings of atypical infection. No mass. Abdomen Ultrasound 09/30/20 17:12 IMPRESSION: Distended thick-walled gallbladder with stones and echogenic bile with some pericholecystic fluid and positive David sign. Findings suggestive of acute cholecystitis. Assessment and Plan (1) Acute cholecystitis: Problem details: Ongoing improvement in symptoms with conservative mgmt. Patient is not a surgical candidate due to her multiple medical issues. Status: Acute 74-year-old female with a past medical history of hypertension, hyperlipidemia, diabetes, CVA with residual left-sided weakness, AFib on Eliquis, hypothyroidism, osteoporosis, chronic kidney disease presented with right-sided abdominal pain noted to have acute cholecystitis. Admitted to the hospital for further management. Acute cholecystitis: Currently patient has right-sided abdominal tenderness, no guarding no rigidity. Vitals stable. Blood cultures sent Continue [facility] General surgery Dr. Masterson was notified-recommended admission to Medicine Service and possibly a cholecystostomy tube plan in the morning. Right upper quadrant ultrasound showed gallstones with acute cholecystitis. NPO for now IV fluids Acute kidney injury on chronic kidney injury: Likely prerenal. Hold nephrotoxins. Will hold home losartan, spironolactone. Follow-up renal function. Independent troponins: Patient denies any chest pain. EKG shows AFib. Likely demand in the setting of mild RVR. Cardiology notified. No acute intervention recommended. AFib with RVR: Currently heart rate in low 110s; continue home metoprolol. Eliquis on hold in anticipation for procedure in the morning. Will defer to the a.m. team to continue Eliquis once cleared by General surgery. Diabetes: Hold metformin. Insulin sliding scale. Hypertension: Continue home amlodipine, metoprolol. Losartan on hold as mentioned above. Monitor vitals. Pneumonia: CT scan showed bibasilar pneumonia. COVID-19 negative. Patient is on IV vancomycin and Zosyn. Will continue to monitor. Currently stable respiratory status. Hypothyroidism: Continue home levothyroxine. History of CVA: Chronic. Patient CT head on presentation showed no acute findings. DVT prophylaxis: SCD boots. Full code
[2020-09-30] MEDS: vancomycin HCL 750 MG in 0.9 % Sodium Chloride 250 ML 265 MG IV (21:07)
--- NOTE | 2020-09-30 21:15 | PC.NURSE ---
PATIENT SLEEPING. OPENS EYES TO VERBAL. 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 BREATHING EVEN, NON-LABORED.
[2020-09-30 21:19] LABS: Glucose, Whole Blood 139 mg/dL (60-115)
--- NOTE | 2020-09-30 21:21 | PC.NURSE ---
NURSE TO NURSE GIVEN TO JASON UMANA.
[2020-09-30] MEDS: Dextrose 5 % and 0.45 % NaCl 1,000 ML 50 ML IVCONT (22:27)
[2020-09-30] MEDS: Atorvastatin Calcium 40 MG TABLET PO (22:32)
[2020-09-30] MEDS: Gabapentin 300 MG CAPSULE PO (22:32)
[2020-09-30] MEDS: Prazosin HCL 5 MG CAPSULE PO (22:32)
[2020-09-30] MEDS: Dronedarone HCl 400 MG TABLET PO (22:32)
[2020-09-30] MEDS: Metoprolol Tartrate 50 MG TABLET 100 MG PO (22:34)
[2020-10-01] VITALS (9 sets, daily range): BP systolic 90–121; BP diastolic 45–58; PULSE 50–98; RESP 15–20; TEMP 36.1–36.7; O2SAT 91–98
[2020-10-01] MEDS: Piperacillin Sodium/Tazobactam 2.25 GM in 0.9 % Sodium Chloride 50 ML IV ×4 (01:15→18:31)
[2020-10-01] MEDS: 0.9 % Sodium Chloride Flush 3 ML SYRINGE IVFLUSH (01:16)
[2020-10-01 05:15] LABS: MANUAL DIFF FLAG NO
[2020-10-01 05:18] LABS: Basophils Percent Auto 0.1 % (0-2); Hematocrit 33.1 % (37-47); Hemoglobin 11.3 g/dl (12.0-16.0); Imm Gran Abs Auto 0.08 X10*3/uL (0.00-0.03); Imm Gran Pct Auto 1.1 % (0.0-0.4); Lymphocytes Absolute Auto 0.7 X10*3/uL (1.2-4.9); Lymphocytes Percent Auto 9.9 % (20-40); Mean Corpuscular HGB Conc 34.1 g/dl (31.0-35.0); Mean Corpuscular Hemoglobin 29.7 pg (27.0-33.0); Mean Corpuscular Volume 86.9 fL (80-98); Mean Platelet Volume 12.5 fL (9.4-12.3); Monocytes Absolute Auto 0.7 X10*3/uL (0.1-1.2); Monocytes Percent Auto 9.5 % (2-11); Neutrophils Percent Auto 79.4 % (45-73); Red Blood Count 3.81 X10*6/uL (4.20-5.50); Red Cell Distribution Width 12.8 % (11.0-16.0); White Blood Count 7.5 X10*3/uL (4.8-10.8)
[2020-10-01 05:24] LABS: Platelet Count 71 X10*3/uL (160-400)
[2020-10-01 06:16] LABS: Magnesium 1.7 mg/dL (1.6-2.6)
[2020-10-01 06:18] LABS: Anion Gap 16 (12-20); Blood Urea Nitrogen 33 mg/dL (9-16); Calcium 7.6 mg/dL (8.4-10.2); Carbon Dioxide 16 mmol/L (22-29); Chloride 108 mmol/L (96-108); Creatinine Clr Calc Pharmacy 22.5; Estimated Glomerular Filt Rate 28; Glucose Random 158 mg/dL (60-115); Potassium 4.3 mmol/L (3.3-5.1); Sodium 136 mmol/L (135-145)
[2020-10-01] MEDS: Omeprazole 20 MG CAPSULE.DR PO (06:22)
[2020-10-01] MEDS: Levothyroxine Sodium 125 MCG TABLET PO (06:22)
[2020-10-01 07:21] LABS: Glucose, Whole Blood 146 mg/dL (60-115)
[2020-10-01] MEDS: Cholecalciferol (Vitamin D3) 25 MCG TABLET PO (09:54)
[2020-10-01] MEDS: Dronedarone HCl 400 MG TABLET PO ×2 (09:54→20:50)
[2020-10-01] MEDS: Sertraline HCL 25 MG TABLET PO (09:55)
[2020-10-01] MEDS: amLODIPine Besylate 10 MG TABLET PO (10:02)
[2020-10-01] MEDS: Metoprolol Tartrate 50 MG TABLET 100 MG PO (10:03)
--- NOTE | 2020-10-01 10:44 | P.CDIC_ITS ---
[facility] Concurrent Query Service Date: 10/01/20 Documentation Clarification: Please clarify if you are treating a proba ble/suspected/likely or confirmed: Sepsis (treat) Sepsis (not treating) Please specify if known Provider Response: Sepsis PLEASE DO NOT DELETE/MODIFY EXISTING CONTENT Additional information is needed in order to code to the highest accuracy and appropriate Severity of Illness (SOI). Please clarify the information noted below in your progress notes and discharge summary. Risk Factors/Clinical Indicators/Treatments Ed: Clinical impression - Acute cholecystitis, sepsis, pneumonia. HR 110 WBC 16.0 RR 24 IV Vancomycin and Zosyn Course: ? atypical pulmonary infection, n/v aspiration pna was considered. Sepsis criteria altered mental status, WBC & infection suspected. CDS: Lily Vieyra CCS, [facility] Contact Number: [phone] Please Review the information above and exercise your independent professional judgment in responding to the query. If you concur, pleas document in the PROGR ESS NOTES and DISCHARGE SUMMARY. If you do not agree with the query, please document in the query above. THIS QUERY IS PART OF THE PERMANENT MEDICAL RECORD
[2020-10-01 11:15] LABS: Glucose, Whole Blood 154 mg/dL (60-115)
--- NOTE | 2020-10-01 12:04 | PM.CNGS ---
History of Present Illness Consult details Consult date: 10/01/20 Reason for consult: abdominal pain Requesting physician: Ivan Loza Narrative: This is a 74-year-old Latvian-speaking lady with multiple medical problems including chronic kidney disease, atrial fibrillation on Eliquis, history of CVA with residual deficit who presented to the emergency department for the 2nd time last evening with right-sided flank pain. The patient was seen in the emergency department 3 days earlier with the same symptoms including weakness and was worked up with negative findings. Patient reports that she has been having this right-sided flank pain for about 10 days. She reports that the pain progressively gotten worse. She reported association with nausea and vomiting. She denies any association with any particular foods or exacerbating or alleviating factors. Patient was worked up in the emergency department last evening and found to have a white blood cell count of 16 slight elevation of the total bilirubin as the only elevation in liver function test, elevated troponins and creatinine as well. Patient underwent a CT scan abdomen and pelvis which showed some thickening of the gallbladder wall and gallstones. Patient had a follow-up ultrasound that had findings consistent with cholecystitis. Given the patient's multiple medical history she was admitted to the Medicine Service and a consult from surgery was obtained with recommendation for cholecystostomy tube. Patient reports that she feels much better today and denies any abdominal pain when her abdomen is not being palpated. She denies nausea or vomiting. She reports having some mild hunger. She reports of pain of about 3/10 on a pain scale when her right upper quadrant is palpated. White blood cell count is back down to normal and the 7 range since administration of Zosyn overnight. Patient reports she feels better than she has felt since this pain began about 10 days ago. She denies any fever, chills, shortness of breath, chest pain. Review of Systems Constitutional: Constitutional: Reports body ache(s), Denies chills, Reports difficulty sleeping, Reports fatigue, Reports fever(s), Denies headache(s), Reports lethargy, Denies night sweats, Reports poor appetite and Reports weakness Eyes: Eyes: Denies blurry vision, Denies dry eyes and Denies itchy eyes ENT: Denies dysphagia, Denies vertigo, Denies dizziness, Denies headache(s), Reports hearing loss and Reports disequilibrium Cardiovascular: Cardiovascular: Denies Epigastric Pain, Denies epigastric discomfort, Denies diaphoresis, Denies leg edema, Denies lightheadedness, Denies Loss of Consciousness and Denies dyspnea Respiratory: Respiratory: Denies cough, Denies excessive phlegm production and Denies dyspnea Gastrointestinal: Gastrointestinal: Reports abdominal pain (Right flank right upper quadrant), Denies melena, Denies hematochezia, Denies change in bowel habits, Denies constipation and Denies dysphagia Genitourinary: Genitourinary: Denies hematuria Musculoskeletal: Musculoskeletal: Reports abnormal gait, Reports back pain and Reports arthralgias Neurologic: Reports abnormal gait, Reports confusion, Denies vertigo, Denies dizziness, Denies headache(s), Reports Sensory deficit (Neuro), Reports paresthesias, Reports disequilibrium and Reports weakness Psychiatric: Psychiatric: Denies anxiety, Reports confusion and Denies depression Endocrine: Endocrine: Reports fatigue Allergic/Immunologic: Allergic/Immunologic: Denies itchy eyes PMFSH Past Medical History Medical History Afib 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 Mother No problems noted. 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 If so, by whom?: No Do you feel safe in your current relationship?: No Current Relationship Is there a partner from a previous relationship who is making you feel unsafe now?: No Are you made to feel afraid or neglected: No Advance Directives: No Advance Directives Information Provided: No Do you have thoughts of harming others: None Do you have a plan to hurt others: No Plan Recently lost weight without trying: Unsure Meds Allergies Allergy/AdvReac Type Severity Reaction Status Date / Time No Known Allergies Allergy Verified 09/27/20 20:52 [No Known Allergies*] Active Medications: Current Medications Generic Name Dose Route Start Last Admin Trade Name Freq PRN Reason Stop Dose Admin Acetaminophen 650 mg 09/30/20 19:42 Acetaminophen 325 Mg Tablet PO Q6H PRN Pain, Mild (Pain Scale 1-3) Amlodipine Besylate 10 mg 10/01/20 09:00 10/01/20 10:02 Amlodipine Besylate 10 Mg Tablet PO 10 mg DAILY DINESH Administration Protocol Atorvastatin Calcium 40 mg 09/30/20 21:00 09/30/20 22:32 Atorvastatin Calcium 40 Mg Tablet PO 40 mg BEDTIME DINESH Administration Dronedarone 400 mg 09/30/20 21:00 10/01/20 09:54 Dronedarone Hcl 400 Mg Tablet PO 400 mg BID DINESH Administration Gabapentin 300 mg 09/30/20 21:00 09/30/20 22:32 Gabapentin 300 Mg Capsule PO 300 mg BEDTIME DINESH Administration Piperacillin Sod/Tazobactam 50 mls @ 100 mls/hr 10/01/20 01:00 10/01/20 07:08 Sod 2.25 gm/ Sodium Chloride IV Infused Q6H DINESH Infusion Dextrose/Sodium Chloride 1,000 mls @ 100 mls/hr 09/30/20 19:45 09/30/20 22:27 D51/2ns IVCONT 50 mls/hr .Q10H DINESH Administration Insulin Human Lispro 0 unit 09/30/20 21:00 10/01/20 11:58 Insulin Lispro 100 Unit/Ml 3 Ml Vial SUBCUT Not Given QIDACHS DINESH Protocol Levothyroxine Sodium 125 mcg 10/01/20 06:00 10/01/20 06:22 Levothyroxine Sodium 125 Mcg Tablet PO 125 mcg DAILY@0600 DINESH Administration Metoprolol Tartrate 100 mg 09/30/20 21:00 10/01/20 10:03 Metoprolol Tartrate 50 Mg Tablet PO 100 mg BID DINESH Administration Protocol Morphine Sulfate 1 mg 09/30/20 19:42 Morphine Sulfate 4 Mg/Ml Cartridge IVPUSH Q4H PRN Pain, Severe (Pain Scale 7-10) Multivitamins/Minerals 1 tab 10/01/20 09:00 10/01/20 09:54 Multivitamin With Minerals Tablet PO 1 tab DAILY DINESH Administration Omeprazole 20 mg 10/01/20 06:30 10/01/20 06:22 Omeprazole 20 Mg Capsule. PO 20 mg DAILY@0630 DINESH Administration Oxycodone HCl 5 mg 09/30/20 19:39 Oxycodone Hcl Immed Release 5 Mg Tablet PO Q12H PRN pain Pharmacy Consult 1 each 09/30/20 19:41 Consult Rx Vancomycin Dosing MISCELLANE DAILY PRN Consult order Prazosin HCl 5 mg 09/30/20 21:00 09/30/20 22:32 Prazosin Hcl 5 Mg Capsule PO 5 mg BEDTIME DINESH Administration Protocol Sertraline HCl 25 mg 10/01/20 09:00 10/01/20 09:55 Sertraline Hcl 25 Mg Tablet PO 25 mg DAILY DINESH Administration Sodium Chloride 3 ml 10/01/20 00:00 10/01/20 09:59 0.9 % Sodium Chloride Flush 3 Ml Syringe IVFLUSH Not Given QSHIFT [facility] Temazepam 15 mg 09/30/20 20:02 Temazepam 15 Mg Capsule PO BEDTIME PRN Sleep Vitamin D 25 mcg 10/01/20 09:00 10/01/20 09:54 Cholecalciferol (Vitamin D3) 25 Mcg Tablet PO 25 mcg DAILY DINESH Administration Home Medications Medication Instructions Recorded Confirmed Last Taken Type amlodipine 10 mg tablet 10 mg PO DAILY 06/07/20 09/30/20 09/30/20 History atorvastatin 40 mg tablet 40 mg PO BEDTIME 06/07/20 09/30/20 09/29/20 History dronedarone 400 mg tablet 400 mg PO BID 06/07/20 09/30/20 09/30/20 History gabapentin 300 mg capsule 300 mg PO BEDTIME 06/07/20 09/30/20 09/29/20 History losartan 100 mg tablet 100 mg PO DAILY 06/07/20 09/30/20 09/30/20 History metformin 500 mg tablet,extended 500 mg PO BEDTIME 06/07/20 09/30/20 09/29/20 History release 24 hr metoprolol tartrate 50 mg tablet 100 mg PO BID 06/07/20 09/30/20 09/30/20 History multivit with 1 tab PO QAM 06/07/20 09/30/20 09/30/20 History mppvvzih-ofns-TG-lutein 8 mg iron-400 mcg-300 mcg tablet omeprazole 20 mg capsule,delayed 20 mg PO DAILY 06/07/20 09/30/20 09/30/20 History release oxycodone 5 mg tablet 5 mg PO Q12H PRN 06/07/20 09/30/20 09/30/20 History prazosin 5 mg capsule 5 mg PO BEDTIME 06/07/20 09/30/20 09/29/20 History sertraline 25 mg tablet 25 mg PO QAM 06/07/20 09/30/20 09/30/20 History spironolactone 25 mg tablet 25 mg PO DAILY 06/07/20 09/30/20 09/30/20 History apixaban 5 mg tablet 5 mg PO BID 08/17/20 09/30/20 09/30/20 History acetaminophen 1,000 mg PO Q8H PRN 09/30/20 09/30/20 Unknown History calcium citrate 500 mg PO DAILY 09/30/20 09/30/20 09/30/20 History levothyroxine 125 mcg PO QAM 09/30/20 09/30/20 09/30/20 History temazepam 7.5 mg PO BEDTIME PRN 09/30/20 09/30/20 Unknown History Physical Exam Vital Signs: Vital Signs: Last Vital Signs Temp 97 F 10/01/20 11:09 Pulse 50 10/01/20 11:09 Resp 18 10/01/20 11:09 BP 103/54 L 10/01/20 11:09 Pulse Ox 96 10/01/20 11:09 Body Mass Index 24.0 Const: Other: Patient is sleeping but is arousable after calling her name multiple times. Patient falls asleep during history taking multiple times. She appears to be mildly confused. General: cooperative, comfortable and confusion; No in distress Orientation/consciousness: confusion HENMT: Head: Yes normal to inspection Mouth: Normal oral and palatal mucosa present Eyes: General: appearance normal, both eyes and all related structures Sclerae: sclerae normal EOM: EOMs intact bilaterally Neck: Other: Well-healed transverse suprasternal notch scar Neck: Yes normal visual inspection, Yes no lymphadenopathy and Yes trachea midline Resp: Effort & Inspection: normal respiratory effort, no audible wheezes and no cough Auscultation: clear to auscultation bilaterally Cardio: Jugular venous distension: no JVD Rhythm: abnormal rhythm irregularly irregular GI: Palpation (GI): Soft to palpation, Tenderness to palpation present (GI) (Mild tenderness to deep palpation right upper quadrant laterally), No hepatosplenomegaly present, no hernias and no masses Percussion: Yes normal to percussion Auscultation: normal bowel sounds Neuro: General: confusion Sensory Exam: Sensory deficit (Neuro) Extrem: General: Yes no clubbing, cyanosis or edema and Yes no calf tenderness Results Labs Result diagrams: 10/01/20 05:10 10/01/20 05:10 Labs: Abnormal lab results 09/30/20 09/30/20 09/30/20 Range/Units 16:02 16:02 16:02 WBC 16.0 H (4.8-10.8) X10*3/uL RBC (4.20-5.50) X10*6/uL Hgb (12.0-16.0) g/dl Hct (37-47) % Plt Count 104 L (160-400) X10*3/uL MPV (9.4-12.3) fL Immature Gran % (Auto) 4.1 H (0.0-0.4) % Neut % (Auto) 81.0 H (45-73) % Lymph % (Auto) 6.4 L (20-40) % Lymph # (Auto) 1.0 L (1.2-4.9) X10*3/uL [place] # (Auto) 1.3 H (0.1-1.2) X10*3/uL Abs Immat Gran (auto) 0.65 H (0.00-0.03) X10*3/uL Absolute Neuts (auto) 13.0 H (2.0-8.3) X10*3/uL PT 34.7 H (10.8-13.0) SEC INR 2.9 H (0.9-1.1) APTT 41.3 H (24.1-38.0) SEC Carbon Dioxide (22-29) mmol/L BUN 26 H D (9-16) mg/dL Creatinine 1.58 H (0.5-1.4) mg/dL POC Glucose (60-115) mg/dL Random Glucose 186 H (60-115) mg/dL Calcium (8.4-10.2) mg/dL Ferritin 286 H (10-250) ng/mL Total Bilirubin 1.9 H (0.0-1.0) mg/dL Troponin I High Sens (<3.5-17.0) ng/L C-Reactive Protein 26.38 H (< or = 0.50) mg/dL B-Natriuretic Peptide (<100) pg/mL Total Protein 6.0 L (6.5-8.0) g/dL Albumin 3.3 L (3.5-5.0) g/dL Urine Protein (NEG-TRACE) MG/DL Urine Blood (NEG) 09/30/20 09/30/20 09/30/20 Range/Units 16:02 18:00 18:37 WBC (4.8-10.8) X10*3/uL RBC (4.20-5.50) X10*6/uL Hgb (12.0-16.0) g/dl Hct (37-47) % Plt Count (160-400) X10*3/uL MPV (9.4-12.3) fL Immature Gran % (Auto) (0.0-0.4) % Neut % (Auto) (45-73) % Lymph % (Auto) (20-40) % Lymph # (Auto) (1.2-4.9) X10*3/uL [place] # (Auto) (0.1-1.2) X10*3/uL Abs Immat Gran (auto) (0.00-0.03) X10*3/uL Absolute Neuts (auto) (2.0-8.3) X10*3/uL PT (10.8-13.0) SEC INR (0.9-1.1) APTT (24.1-38.0) SEC Carbon Dioxide (22-29) mmol/L BUN (9-16) mg/dL Creatinine (0.5-1.4) mg/dL POC Glucose (60-115) mg/dL Random Glucose (60-115) mg/dL Calcium (8.4-10.2) mg/dL Ferritin (10-250) ng/mL Total Bilirubin (0.0-1.0) mg/dL Troponin I High Sens 208.1 H D 184.5 H (<3.5-17.0) ng/L C-Reactive Protein (< or = 0.50) mg/dL B-Natriuretic Peptide 992 H (<100) pg/mL Total Protein (6.5-8.0) g/dL Albumin (3.5-5.0) g/dL Urine Protein 2+ H (NEG-TRACE) MG/DL Urine Blood 1+ H (NEG) 09/30/20 10/01/20 10/01/20 Range/Units 21:10 05:10 05:10 WBC (4.8-10.8) X10*3/uL RBC 3.81 L (4.20-5.50) X10*6/uL Hgb 11.3 L (12.0-16.0) g/dl Hct 33.1 L (37-47) % Plt Count 71 L D (160-400) X10*3/uL MPV 12.5 H (9.4-12.3) fL Immature Gran % (Auto) 1.1 H (0.0-0.4) % Neut % (Auto) 79.4 H (45-73) % Lymph % (Auto) 9.9 L (20-40) % Lymph # (Auto) 0.7 L (1.2-4.9) X10*3/uL [place] # (Auto) (0.1-1.2) X10*3/uL Abs Immat Gran (auto) 0.08 H (0.00-0.03) X10*3/uL Absolute Neuts (auto) (2.0-8.3) X10*3/uL PT (10.8-13.0) SEC INR (0.9-1.1) APTT (24.1-38.0) SEC Carbon Dioxide 16 L (22-29) mmol/L BUN 33 H (9-16) mg/dL Creatinine 1.77 H (0.5-1.4) mg/dL POC Glucose 139 H (60-115) mg/dL Random Glucose 158 H (60-115) mg/dL Calcium 7.6 L D (8.4-10.2) mg/dL Ferritin (10-250) ng/mL Total Bilirubin (0.0-1.0) mg/dL Troponin I High Sens (<3.5-17.0) ng/L C-Reactive Protein (< or = 0.50) mg/dL B-Natriuretic Peptide (<100) pg/mL Total Protein (6.5-8.0) g/dL Albumin (3.5-5.0) g/dL Urine Protein (NEG-TRACE) MG/DL Urine Blood (NEG) 10/01/20 10/01/20 Range/Units 07:09 11:08 WBC (4.8-10.8) X10*3/uL RBC (4.20-5.50) X10*6/uL Hgb (12.0-16.0) g/dl Hct (37-47) % Plt Count (160-400) X10*3/uL MPV (9.4-12.3) fL Immature Gran % (Auto) (0.0-0.4) % Neut % (Auto) (45-73) % Lymph % (Auto) (20-40) % Lymph # (Auto) (1.2-4.9) X10*3/uL [place] # (Auto) (0.1-1.2) X10*3/uL Abs Immat Gran (auto) (0.00-0.03) X10*3/uL Absolute Neuts (auto) (2.0-8.3) X10*3/uL PT (10.8-13.0) SEC INR (0.9-1.1) APTT (24.1-38.0) SEC Carbon Dioxide (22-29) mmol/L BUN (9-16) mg/dL Creatinine (0.5-1.4) mg/dL POC Glucose 146 H 154 H (60-115) mg/dL Random Glucose (60-115) mg/dL Calcium (8.4-10.2) mg/dL Ferritin (10-250) ng/mL Total Bilirubin (0.0-1.0) mg/dL Troponin I High Sens (<3.5-17.0) ng/L C-Reactive Protein (< or = 0.50) mg/dL B-Natriuretic Peptide (<100) pg/mL Total Protein (6.5-8.0) g/dL Albumin (3.5-5.0) g/dL Urine Protein (NEG-TRACE) MG/DL Urine Blood (NEG) Short CBC 09/30/20 10/01/20 Range/Units 16:02 05:10 WBC 16.0 H 7.5 (4.8-10.8) X10*3/uL Hgb 13.3 11.3 L (12.0-16.0) g/dl Hct 39.3 33.1 L (37-47) % Plt Count 104 L 71 L D (160-400) X10*3/uL BMP 09/30/20 10/01/20 16:02 05:10 Sodium 136 136 Potassium 4.3 4.3 Chloride 105 108 Carbon Dioxide 23 16 L BUN 26 H D 33 H Creatinine 1.58 H 1.77 H Calcium 8.6 7.6 L D Liver Function 09/30/20 Range/Units 16:02 Total Bilirubin 1.9 H (0.0-1.0) mg/dL AST 20 (5-31) U/L ALT 14 (0-31) U/L Alkaline Phosphatase 52 D (39-117) U/L Albumin 3.3 L (3.5-5.0) g/dL Urine 09/30/20 Range/Units 18:00 Urine Color YELLOW Urine Appearance CLEAR Urine pH 5.5 (5.0-8.0) Ur Specific [place] 1.020 (1.005-1.025) Urine Protein 2+ H (NEG-TRACE) MG/DL Urine Glucose (UA) NEG (NEG) MG/DL All other labs normal. Assessment and Plan (1) Acute cholecystitis: Status: Acute This is a 74-year-old lady with multiple medical problems including history of a CVA with residual weakness and atrial fibrillation currently on Eliquis as well as elevated troponins, chronic kidney disease who presented to the emergency department with several-day history of right flank pain and was found last evening to have evidence of acute cholecystitis on ultrasound. Patient is not a surgical candidate given all of her medical problems. Patient was treated with IV Zosyn overnight and has had significant improvement in her discomfort and has had normalization of her white blood cell count. The patient would not be a surgical candidate but would be a candidate for percutaneous cholecystostomy tube however given her improvement in symptoms and less than 12 hours and improvement in white blood cell count I believe that the patient should continue with conservative management of IV antibiotics only. Cholecystostomy tube should not be performed at this time as the patient is clinically improving. Patient may start on a clear liquid diet but broth with oil in them in any other fatty meals should be avoided. We will continue to follow with you thank you for this consultation. I spent 60 minutes with this patient reviewing history, completing physical exam, reviewing laboratory values radiology studies and documenting. Procedures Date of Service Date of Service: 10/01/20
--- NOTE | 2020-10-01 12:52 | MHC.CM.PN ---
IMM 10/01/20 Female 74 DX Acute Choli. Pt lives with her Sister. Her sister assists. Pt is WC bound HX CVA. DP Home with CCA. May need assist with transportation. CM will follow.
[2020-10-01] MEDS: oxyCODONE HCl Immed Release 5 MG TABLET PO (14:01)
--- NOTE | 2020-10-01 14:04 | P.PNIM_ITS ---
Subjective Subjective Date of Service: 10/01/20 Interval History: Patient seen and examined at bedside Patient was reporting some abdominal pain Constitutional Constitutional: Reports body ache(s), Denies chills, Reports difficulty sleeping, Reports fatigue, Reports fever(s), Denies headache(s), Reports lethargy, Denies night sweats, Reports poor appetite and Reports weakness Eyes Eyes: Denies blurry vision, Denies dry eyes and Denies itchy eyes ENT Ears, Nose, Mouth, and Throat: Denies dysphagia, Denies vertigo, Denies dizziness, Denies headache(s), Reports hearing loss and Reports disequilibrium Cardiovascular Cardiovascular: Denies Epigastric Pain, Denies epigastric discomfort, Denies diaphoresis, Denies leg edema, Denies lightheadedness, Denies Loss of Consciousness and Denies dyspnea Respiratory Respiratory: Denies cough, Denies excessive phlegm production and Denies dyspnea Gastrointestinal Gastrointestinal: Reports abdominal pain (Right flank right upper quadrant), Denies melena, Denies hematochezia, Denies change in bowel habits, Denies constipation and Denies dysphagia Musculoskeletal Musculoskeletal: Reports abnormal gait, Reports back pain and Reports arthralgias Neurologic Neurologic: Reports abnormal gait, Reports confusion, Denies vertigo, Denies dizziness, Denies headache(s), Reports Sensory deficit (Neuro), Reports paresthesias, Reports disequilibrium and Reports weakness Psychiatric Psychiatric: Denies anxiety, Reports confusion and Denies depression Endocrine Endocrine: Reports fatigue Allergic/Immunologic Allergic/Immunologic: Denies itchy eyes Physical Exam Vital Signs: Vital Signs: Last Vital Signs Temp 97 F 10/01/20 11:09 Pulse 50 10/01/20 11:09 Resp 18 10/01/20 11:09 BP 103/54 L 10/01/20 11:09 Pulse Ox 96 10/01/20 11:09 Body Mass Index 24.0 Const: General: cooperative, comfortable and confusion; No acute distress or in distress Nutritional Appearance: average body habitus and other (Frail, elderly) Orientation/consciousness: oriented to person, oriented to time and confusion HENMT: Head: Yes normal to inspection Ears: hearing grossly normal b ilaterally Mouth: Normal oral and palatal mucosa present Eyes: General: appearance normal, both eyes and all related structures Visual Dennison: normal visual dennison by confrontation Sclerae: sclerae normal EOM: EOMs intact bilaterally Neck: Neck: Yes normal visual inspection, Yes no lymphadenopathy, Yes trachea midline, No positive Brudzinski's sign, No positive Kernig's sign and No tender Thyroid: Thyroid normal Chest: Chest palpation & inspection: normal inspection of the chest Resp: Effort & Inspection: normal respiratory effort, no audible wheezes and no cough Auscultation: clear to auscultation bilaterally Cardio: Other: . Jugular venous distension: no JVD Rhythm: abnormal rhythm irregularly irregular GI: Inspection: Yes normal to inspection Palpation (GI): Soft to palpation, Tenderness to palpation present (GI) (Mild tenderness to deep palpation right upper quadrant laterally), No hepatosplenomegaly present, no hernias and no masses Percussion: Yes normal to percussion Auscultation: normal bowel sounds : General: Yes no CVA tenderness Back/Spine/Pelvis: Back: no CVA tenderness Skin: General skin exam: no rashes or lesions noted Neuro: General: oriented to person, oriented to time and confusion Sensory Exam: Sensory deficit (Neuro) Extrem: General: Yes normal to inspection, Yes no clubbing, cyanosis or edema and Yes no calf tenderness Objective Data Current Medications Generic Name Dose Route Start Last Admin Trade Name Freq PRN Reason Stop Dose Admin Acetaminophen 650 mg 09/30/20 19:42 Acetaminophen 325 Mg Tablet PO Q6H PRN Pain, Mild (Pain Scale 1-3) Amlodipine Besylate 10 mg 10/01/20 09:00 10/01/20 10:02 Amlodipine Besylate 10 Mg Tablet PO 10 mg DAILY DINESH Administration Protocol Atorvastatin Calcium 40 mg 09/30/20 21:00 09/30/20 22:32 Atorvastatin Calcium 40 Mg Tablet PO 40 mg BEDTIME DINESH Administration Dronedarone 400 mg 09/30/20 21:00 10/01/20 09:54 Dronedarone Hcl 400 Mg Tablet PO 400 mg BID DINESH Administration Gabapentin 300 mg 09/30/20 21:00 09/30/20 22:32 Gabapentin 300 Mg Capsule PO 300 mg BEDTIME DINESH Administration Piperacillin Sod/Tazobactam 50 mls @ 100 mls/hr 10/01/20 01:00 10/01/20 07:08 Sod 2.25 gm/ Sodium Chloride IV Infused Q6H DINESH Infusion Dextrose/Sodium Chloride 1,000 mls @ 100 mls/hr 09/30/20 19:45 09/30/20 22:27 D51/2ns IVCONT 50 mls/hr .Q10H DINESH Administration Insulin Human Lispro 0 unit 09/30/20 21:00 10/01/20 11:58 Insulin Lispro 100 Unit/Ml 3 Ml Vial SUBCUT Not Given QIDACHS [facility] Protocol Levothyroxine Sodium 125 mcg 10/01/20 06:00 10/01/20 06:22 Levothyroxine Sodium 125 Mcg Tablet PO 125 mcg DAILY@0600 [facility] Administration Morphine Sulfate 1 mg 09/30/20 19:42 Morphine Sulfate 4 Mg/Ml Cartridge IVPUSH Q4H PRN Pain, Severe (Pain Scale 7-10) Multivitamins/Minerals 1 tab 10/01/20 09:00 10/01/20 09:54 Multivitamin With Minerals Tablet PO 1 tab DAILY DINESH Administration Omeprazole 20 mg 10/01/20 06:30 10/01/20 06:22 Omeprazole 20 Mg Capsule. PO 20 mg DAILY@0630 [facility] Administration Oxycodone HCl 5 mg 09/30/20 19:39 Oxycodone Hcl Immed Release 5 Mg Tablet PO Q12H PRN pain Pharmacy Consult 1 each 09/30/20 19:41 Consult Rx Vancomycin Dosing MISCELLANE DAILY PRN Consult order Prazosin HCl 5 mg 09/30/20 21:00 09/30/20 22:32 Prazosin Hcl 5 Mg Capsule PO 5 mg BEDTIME DINESH Administration Protocol Sertraline HCl 25 mg 10/01/20 09:00 10/01/20 09:55 Sertraline Hcl 25 Mg Tablet PO 25 mg DAILY DINESH Administration Sodium Chloride 3 ml 10/01/20 00:00 10/01/20 09:59 0.9 % Sodium Chloride Flush 3 Ml Syringe IVFLUSH Not Given QSHIFT [facility] Temazepam 15 mg 09/30/20 20:02 Temazepam 15 Mg Capsule PO BEDTIME PRN Sleep Vitamin D 25 mcg 10/01/20 09:00 10/01/20 09:54 Cholecalciferol (Vitamin D3) 25 Mcg Tablet PO 25 mcg DAILY DINESH Administration Labs CBC & Chem 7: 10/01/20 05:10 10/01/20 05:10 Assessment and Plan (1) Acute cholecystitis: Status: Acute Assessment and Plan: 74-year-old female with a past medical history of hypertension, hyperlipidemia, diabetes, CVA with residual left-sided weakness, AFib on Eliquis, hypothyroidism, osteoporosis, chronic kidney disease presented with right-sided abdominal pain noted to have acute cholecystitis. Admitted to the hospital for further management. Sepsis present on admission secondary to Acute cholecystitis Continue IV Zosyn Follow-up cultures Seen by surgery reconciled given multiple medical problem patient is not a candidate for surgery and as patient's symptoms improving and white count normal recommended holding percutaneous cholecystotomy Will monitor closely Acute kidney injury on chronic kidney injury: Likely prerenal. Hold nephrotoxins. Continue IV fluids Hold losartan and Aldactone Mildly elevated troponin with flat trend likely demand mediated from sepsis and cholecystitis No chest pain ACS less likely AFib with RVR improving Heart rate improved now Continue Lopressor Hold Eliquis for possible percutaneous cholecystotomy Diabetes: Hold metformin. Continue Insulin sliding scale. Hypertension: Continue amlodipine, metoprolol. Losartan on hold for acute kidney injury Pneumonia: CT scan showed bibasilar pneumonia. COVID-19 negative. Continue supportive management On Zosyn Hypothyroidism: Continue home levothyroxine History of CVA: Chronic. CT head on presentation showed no acute findings. DVT prophylaxis: SCD boots. Full code
--- NOTE | 2020-10-01 15:39 | PC.NURSE ---
Patient converted on telemetry from Afib to sinus roland, back in Afib at present. Patient assessed ,asymptomatic . Dr. Loza notified, vss. Will cotinue to monitor and report any changes.
[2020-10-01] MEDS: Dextrose 5 % and 0.45 % NaCl 1,000 ML 50 ML IVCONT (15:54)
[2020-10-01 16:30] LABS: Glucose, Whole Blood 261 mg/dL (60-115)
[2020-10-01] MEDS: Insulin Lispro 100 UNIT/ML 3 ML VIAL SUBCUT (17:00)
[2020-10-01 18:30] LABS: Glucose, Whole Blood 176 mg/dL (60-115)
[2020-10-01 19:33] LABS: Glucose, Whole Blood 124 mg/dL (60-115)
[2020-10-01] MEDS: Gabapentin 300 MG CAPSULE PO (20:50)
[2020-10-01] MEDS: Atorvastatin Calcium 40 MG TABLET PO (20:50)
[2020-10-02] VITALS (7 sets, daily range): BP systolic 115–158; BP diastolic 44–70; PULSE 60–82; RESP 16–19; TEMP 36.3–37.3; O2SAT 91–96
[2020-10-02] MEDS: Piperacillin Sodium/Tazobactam 2.25 GM in 0.9 % Sodium Chloride 50 ML IV ×4 (00:21→18:42)
[2020-10-02] MEDS: 0.9 % Sodium Chloride Flush 3 ML SYRINGE IVFLUSH ×2 (00:22→08:45)
[2020-10-02] MEDS: Omeprazole 20 MG CAPSULE.DR PO (05:29)
[2020-10-02] MEDS: Levothyroxine Sodium 125 MCG TABLET PO (05:30)
[2020-10-02] MEDS: Dextrose 5 % and 0.45 % NaCl 1,000 ML 100 ML IVCONT (05:58)
[2020-10-02 08:06] LABS: Glucose, Whole Blood 179 mg/dL (60-115)
[2020-10-02] MEDS: Cholecalciferol (Vitamin D3) 25 MCG TABLET PO (08:42)
[2020-10-02] MEDS: Insulin Lispro 100 UNIT/ML 3 ML VIAL SUBCUT (08:43)
[2020-10-02] MEDS: Dronedarone HCl 400 MG TABLET PO ×2 (08:44→20:43)
[2020-10-02] MEDS: amLODIPine Besylate 10 MG TABLET PO (08:44)
[2020-10-02] MEDS: Sertraline HCL 25 MG TABLET PO (08:44)
[2020-10-02 08:58] LABS: Basophils Percent Auto 0.3 % (0-2); Eosinophils Absolute Auto 0.1 X10*3/uL (0.0-0.4); Eosinophils Percent Auto 0.8 % (0-4); Hematocrit 32.2 % (37-47); Hemoglobin 11.1 g/dl (12.0-16.0); Imm Gran Abs Auto 0.03 X10*3/uL (0.00-0.03); Imm Gran Pct Auto 0.5 % (0.0-0.4); Lymphocytes Absolute Auto 0.7 X10*3/uL (1.2-4.9); Lymphocytes Percent Auto 10.8 % (20-40); MANUAL DIFF FLAG SCAN; Mean Corpuscular HGB Conc 34.5 g/dl (31.0-35.0); Mean Corpuscular Hemoglobin 30.2 pg (27.0-33.0); Mean Corpuscular Volume 87.7 fL (80-98); Mean Platelet Volume 12.2 fL (9.4-12.3); Monocytes Absolute Auto 0.7 X10*3/uL (0.1-1.2); Monocytes Percent Auto 10.7 % (2-11); Neutrophils Absolute Auto 4.8 X10*3/uL (2.0-8.3); Neutrophils Percent Auto 76.9 % (45-73); Red Blood Count 3.67 X10*6/uL (4.20-5.50); Red Cell Distribution Width 12.8 % (11.0-16.0); SCAN SMEAR FLAG 1; White Blood Count 6.3 X10*3/uL (4.8-10.8)
[2020-10-02 09:05] LABS: Platelet Count 72 X10*3/uL (160-400)
[2020-10-02 09:22] LABS: Anion Gap 15 (12-20); Blood Urea Nitrogen 45 mg/dL (9-16); Calcium 7.5 mg/dL (8.4-10.2); Carbon Dioxide 17 mmol/L (22-29); Chloride 105 mmol/L (96-108); Creatinine Clr Calc Pharmacy 12.3; Estimated Glomerular Filt Rate 14; Glucose Random 163 mg/dL (60-115); Potassium 4.1 mmol/L (3.3-5.1); Sodium 133 mmol/L (135-145)
[2020-10-02 09:31] LABS: SLIDE REVIEW VERIFIED
[2020-10-02] MEDS: 0.9 % Sodium Chloride 1,000 ML 125 ML IVCONT (10:40)
--- NOTE | 2020-10-02 10:45 | PM.PNGS ---
Subjective Subjective Date of Service: 10/02/20 <JASMYNE Joshua - Last Filed: 10/02/20 10:52> 10/02/20 <Guerita King MD - Last Filed: 10/02/20 14:25> Interval history: Examined at bedside. She is resting comfortable in no aute distress. Denies any pain, N/V. <JASMYNE Joshua - Last Filed: 10/02/20 10:52> Physical Exam Vital Signs: Vital Signs: Last Vital Signs Temp 97.5 F 10/02/20 08:00 Pulse 62 10/02/20 08:00 Resp 19 10/02/20 08:00 BP 122/56 L 10/02/20 08:00 Pulse Ox 95 10/02/20 08:00 Body Mass Index 24.0 <JASMYNE Joshua - Last Filed: 10/02/20 10:52> Const: General: comfortable and no acute distress <JASMYNE Joshua - Last Filed: 10/02/20 10:52> GI: Inspection: Yes normal to inspection <JASMYNE Joshua - Last Filed: 10/02/20 10:52> Palpation (GI): Soft to palpation <JASMYNE Joshua - Last Filed: 10/02/20 10:52> Progress Note: A&P Assessment and plan (1) Acute cholecystitis: Problem details: Ongoing improvement in symptoms with conservative mgmt. Patient is not a surgical candidate due to her multiple medical issues. <JASMYNE Joshua - Last Filed: 10/02/20 10:52> Status: Acute <JASMYNE Joshua - Last Filed: 10/02/20 10:52> Assessment and Plan: Continue ABX, IVF, pain mgmt Percutaneous intervention on HOLD as patient is improving. Continue clear liquids. Will advance as tolerated. Medical mgmt per hospitalist team. <JASMYNE Joshua Last Filed: 10/02/20 10:52> . General Surgery Attending - Kwame King M.D. Patient was evaluated and discussed with Mr. Cm Francois PA-C. I confirm above findings and plan as documented. Patient is comfortable in bed. WBC has normalized. VS's are WNL. Plan for medical management as per Dr. MacMilllan. No change in clinical data today to change this plan. <Guerita King MD - Last Filed: 10/02/20 14:25> Fall Risk Details Current Medications: Current Medications Generic Name Dose Route Start Last Admin Trade Name Freq PRN Reason Stop Dose Admin Acetaminophen 650 mg 09/30/20 19:42 Acetaminophen 325 Mg Tablet PO Q6H PRN Pain, Mild (Pain Scale 1-3) Amlodipine Besylate 10 mg 10/01/20 09:00 10/02/20 08:44 Amlodipine Besylate 10 Mg Tablet PO 10 mg DAILY DINESH Administration Protocol Atorvastatin Calcium 40 mg 09/30/20 21:00 10/01/20 20:50 Atorvastatin Calcium 40 Mg Tablet PO 40 mg BEDTIME DINESH Administration Dronedarone 400 mg 09/30/20 21:00 10/02/20 08:44 Dronedarone Hcl 400 Mg Tablet PO 400 mg BID DINESH Administration Gabapentin 300 mg 09/30/20 21:00 10/01/20 20:50 Gabapentin 300 Mg Capsule PO 300 mg BEDTIME DINESH Administration Piperacillin Sod/Tazobactam 50 mls @ 100 mls/hr 10/01/20 01:00 10/02/20 06:30 Sod 2.25 gm/ Sodium Chloride IV Infused Q6H IDNESH Infusion Sodium Chloride 1,000 mls @ 125 mls/hr 10/02/20 10:30 10/02/20 10:40 Ns IVCONT 125 mls/hr .Q8H DINESH Administration Insulin Human Lispro 0 unit 09/30/20 21:00 10/02/20 08:43 Insulin Lispro 100 Unit/Ml 3 Ml Vial SUBCUT 2 unit QIDACHS DINESH Administration Protocol Levothyroxine Sodium 125 mcg 10/01/20 06:00 10/02/20 05:30 Levothyroxine Sodium 125 Mcg Tablet PO 125 mcg DAILY@0600 DINESH Administration Morphine Sulfate 1 mg 09/30/20 19:42 Morphine Sulfate 4 Mg/Ml Cartridge IVPUSH Q4H PRN Pain, Severe (Pain Scale 7-10) Multivitamins/Minerals 1 tab 10/01/20 09:00 10/02/20 08:44 Multivitamin With Minerals Tablet PO 1 tab DAILY DINESH Administration Omeprazole 20 mg 10/01/20 06:30 10/02/20 05:29 Omeprazole 20 Mg Capsule.Dr PO 20 mg DAILY@0630 DINESH Administration Oxycodone HCl 5 mg 09/30/20 19:39 10/01/20 14:01 Oxycodone Hcl Immed Release 5 Mg Tablet PO 5 mg Q12H PRN Administration pain Pharmacy Consult 1 each 09/30/20 19:41 Consult Rx Vancomycin Dosing MISCELLANE DAILY PRN Consult order Prazosin HCl 5 mg 09/30/20 21:00 10/01/20 20:50 Prazosin Hcl 5 Mg Capsule PO Not Given BEDTIME DINESH Protocol Sertraline HCl 25 mg 10/01/20 09:00 10/02/20 08:44 Sertraline Hcl 25 Mg Tablet PO 25 mg DAILY DINESH Administration Sodium Chloride 3 ml 10/01/20 00:00 10/02/20 08:45 0.9 % Sodium Chloride Flush 3 Ml Syringe IVFLUSH 3 ml QSHIFT DINESH Administration Temazepam 15 mg 09/30/20 20:02 Temazepam 15 Mg Capsule PO BEDTIME PRN Sleep Vitamin D 25 mcg 10/01/20 09:00 10/02/20 08:42 Cholecalciferol (Vitamin D3) 25 Mcg Tablet PO 25 mcg DAILY DINESH Administration <JASMYNE Joshua - Last Filed: 10/02/20 10:52> Time Spent With Patient Time: Total time spent is greater than 50% in coordination of care (as documented) at patient's floor/unit and/or counseling patient: <JASMYNE Joshua - Last Filed: 10/02/20 10:52> Time with patient: 15 - 24 minutes <Guerita King MD - Last Filed: 10/02/20 14:25> Procedures Date of Service Date of Service: 10/02/20 <Guerita King MD - Last Filed: 10/02/20 14:25>
[2020-10-02 12:13] LABS: Glucose, Whole Blood 149 mg/dL (60-115)
--- NOTE | 2020-10-02 12:36 | P.CONNP_ITS ---
History of Present Illness Reason for Consult Consult date: 10/02/20 Chief Complaint Chief complaint: Acute cholecystitis Review of Systems Review of Systems Right-sided flank pain otherwise She essentially says no to everything on a 12 p oint review of system Yes Unobtainable due to mental condition Constitutional: Reports body ache(s), Denies chills, Reports difficulty sleeping, Reports fatigue, Reports fever(s), Denies headache(s), Reports lethargy, Denies night sweats, Reports poor appetite and Reports weakness Eyes: Denies blurry vision, Denies dry eyes and Denies itchy eyes Denies dysphagia, Denies vertigo, Denies dizziness, Denies headache(s), Reports hearing loss and Reports disequilibrium Cardiovascular: Denies Epigastric Pain, Denies epigastric discomfort, Denies diaphoresis, Denies leg edema, Denies lightheadedness, Denies Loss of Consciousness and Denies dyspnea Respiratory: Denies cough, Denies excessive phlegm production and Denies dyspnea Gastrointestinal: Reports abdominal pain (Right flank right upper quadrant), Denies melena, Denies hematochezia, Denies change in bowel habits, Denies constipation and Denies dysphagia Musculoskeletal: Reports abnormal gait, Reports back pain and Reports arthralgias Reports abnormal gait, Reports confusion, Denies vertigo, Denies dizziness, Denies headache(s), Reports Sensory deficit (Neuro), Reports paresthesias, Reports disequilibrium and Reports weakness Psychiatric: Denies anxiety, Reports confusion and Denies depression Endocrine: Reports fatigue Allergic/Immunologic: Denies itchy eyes PMFSH Past Medical History Medical History (Updated 10/02/20 @ 10:48 by JASMYNE Joshua) Afib 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 Mother No problems noted. Surgical History Surgical History (Updated 10/01/20 @ 12:12 by Liliane Mcqueen MD) History of back surgery History of thyroidectomy History of tubal ligation Hx of section Social History Social History Household Members: Family Housing: House Do you presently have visiting nurse or other home services: Yes (visiting nurses, end user consultant) Smoking Status: Never smoker Use of substances other than those prescribed or required for medical reasons: No Currently Displaying Signs/Symptoms of Drug Intoxication Withdrawal: No Have you been hit, kicked, punched, or otherwise hurt by someone within the past year? If so, by whom?: No Do you feel safe in your current relationship?: No Current Relationship Is there a partner from a previous relationship who is making you feel unsafe now?: No Are you made to feel afraid or neglected: No Advance Directives: No Advance Directives Information Provided: No Do you have thoughts of harming others: None Do you have a plan to hurt others: No Plan Recently lost weight without trying: Unsure service: No Current occupational status: disabled Meds Allergies Allergy/AdvReac Type Severity Reaction Status Date / Time No Known Allergies Allergy Verified 09/27/20 20:52 [No Known Allergies*] Active Medications: Current Medications Generic Name Dose Route Start Last Admin Trade Name Freq PRN Reason Stop Dose Admin Acetaminophen 650 mg 09/30/20 19:42 Acetaminophen 325 Mg Tablet PO Q6H PRN Pain, Mild (Pain Scale 1-3) Amlodipine Besylate 10 mg 10/01/20 09:00 10/02/20 08:44 Amlodipine Besylate 10 Mg Tablet PO 10 mg DAILY DINESH Administration Protocol Atorvastatin Calcium 40 mg 09/30/20 21:00 10/01/20 20:50 Atorvastatin Calcium 40 Mg Tablet PO 40 mg BEDTIME DINESH Administration Dronedarone 400 mg 09/30/20 21:00 10/02/20 08:44 Dronedarone Hcl 400 Mg Tablet PO 400 mg BID DINESH Administration Gabapentin 300 mg 09/30/20 21:00 10/01/20 20:50 Gabapentin 300 Mg Capsule PO 300 mg BEDTIME DINESH Administration Piperacillin Sod/Tazobactam 50 mls @ 100 mls/hr 10/01/20 01:00 10/02/20 06:30 Sod 2.25 gm/ Sodium Chloride IV Infused Q6H DINESH Infusion Sodium Chloride 1,000 mls @ 125 mls/hr 10/02/20 10:30 10/02/20 10:40 Ns IVCONT 125 mls/hr .Q8H DINESH Administration Insulin Human Lispro 0 unit 09/30/20 21:00 10/02/20 12:36 Insulin Lispro 100 Unit/Ml 3 Ml Vial SUBCUT Not Given QIDACHS [facility] Protocol Levothyroxine Sodium 125 mcg 10/01/20 06:00 10/02/20 05:30 Levothyroxine Sodium 125 Mcg Tablet PO 125 mcg DAILY@0600 DINESH Administration Morphine Sulfate 1 mg 09/30/20 19:42 Morphine Sulfate 4 Mg/Ml Cartridge IVPUSH Q4H PRN Pain, Severe (Pain Scale 7-10) Multivitamins/Minerals 1 tab 10/01/20 09:00 10/02/20 08:44 Multivitamin With Minerals Tablet PO 1 tab DAILY [facility] Administration Omeprazole 20 mg 10/01/20 06:30 10/02/20 05:29 Omeprazole 20 Mg Capsule. PO 20 mg DAILY@0630 [facility] Administration Oxycodone HCl 5 mg 09/30/20 19:39 10/01/20 14:01 Oxycodone Hcl Immed Release 5 Mg Tablet PO 5 mg Q12H PRN Administration pain Pharmacy Consult 1 each 09/30/20 19:41 Consult Rx Vancomycin Dosing MISCELLANE DAILY PRN Consult order Prazosin HCl 5 mg 09/30/20 21:00 10/01/20 20:50 Prazosin Hcl 5 Mg Capsule PO Not Given BEDTIME [facility] Protocol Sertraline HCl 25 mg 10/01/20 09:00 10/02/20 08:44 Sertraline Hcl 25 Mg Tablet PO 25 mg DAILY DINESH Administration Sodium Chloride 3 ml 10/01/20 00:00 10/02/20 08:45 0.9 % Sodium Chloride Flush 3 Ml Syringe IVFLUSH 3 ml QSHIFT [facility] Administration Temazepam 15 mg 09/30/20 20:02 Temazepam 15 Mg Capsule PO BEDTIME PRN Sleep Vitamin D 25 mcg 10/01/20 09:00 10/02/20 08:42 Cholecalciferol (Vitamin D3) 25 Mcg Tablet PO 25 mcg DAILY [facility] Administration Home Medications Medication Instructions Recorded Confirmed Last Taken Type amlodipine 10 mg tablet 10 mg PO DAILY 06/07/20 09/30/20 09/30/20 History atorvastatin 40 mg tablet 40 mg PO BEDTIME 06/07/20 09/30/20 09/29/20 History dronedarone 400 mg tablet 400 mg PO BID 06/07/20 09/30/20 09/30/20 History gabapentin 300 mg capsule 300 mg PO BEDTIME 06/07/20 09/30/20 09/29/20 History losartan 100 mg tablet 100 mg PO DAILY 06/07/20 09/30/20 09/30/20 History metformin 500 mg tablet,extended 500 mg PO BEDTIME 06/07/20 09/30/20 09/29/20 History release 24 hr metoprolol tartrate 50 mg tablet 100 mg PO BID 06/07/20 09/30/20 09/30/20 History multivit with 1 tab PO QAM 06/07/20 09/30/20 09/30/20 History fozzvcmy-nvah-VX-lutein 8 mg iron-400 mcg-300 mcg tablet omeprazole 20 mg capsule,delayed 20 mg PO DAILY 06/07/20 09/30/20 09/30/20 History release oxycodone 5 mg tablet 5 mg PO Q12H PRN 06/07/20 09/30/20 09/30/20 History prazosin 5 mg capsule 5 mg PO BEDTIME 06/07/20 09/30/20 09/29/20 History sertraline 25 mg tablet 25 mg PO QAM 06/07/20 09/30/20 09/30/20 History spironolactone 25 mg tablet 25 mg PO DAILY 06/07/20 09/30/20 09/30/20 History apixaban 5 mg tablet 5 mg PO BID 08/17/20 09/30/20 09/30/20 History acetaminophen 1,000 mg PO Q8H PRN 09/30/20 09/30/20 Unknown History calcium citrate 500 mg PO DAILY 09/30/20 09/30/20 09/30/20 History levothyroxine 125 mcg PO QAM 09/30/20 09/30/20 09/30/20 History temazepam 7.5 mg PO BEDTIME PRN 09/30/20 09/30/20 Unknown History Physical Exam Vital Signs: Last Vital Signs Temp 99.2 F 10/02/20 11:42 Pulse 68 10/02/20 11:42 Resp 18 10/02/20 11:42 BP 135/60 10/02/20 11:42 Pulse Ox 91 L 10/02/20 11:42 Body Mass Index 24.0 Const Other: . General: cooperative, comfortable, no acute distress and confusion; No acute d istress or in distress Nutritional Appearance: average body habitus and other (Frail, elderly) Orientation/consciousness: oriented to person, oriented to time and confusion HENMT Head: Yes normal to inspection Ears: hearing grossly normal bilaterally Mouth: Normal oral and palatal mucosa present Eyes General: appearance normal, both eyes and all related structures Visual Mckeon: normal visual mckeon by confrontation Sclerae: sclerae normal EOM: EOMs intact bilaterally Neck Other: Well-healed transverse suprasternal notch scar Neck: Yes normal visual inspection, Yes no lymphadenopathy, Yes trachea midline, No positive Brudzinski's sign, No positive Kernig's sign and No tender Thyroid: Thyroid normal Chest Chest palpation & inspection: normal inspection of the chest Resp Effort & Inspection: normal respiratory effort, no audible wheezes and no cough Auscultation: clear to auscultation bilaterally Cardio Other: . Jugular venous distension: no JVD Rhythm: abnormal rhythm irregularly irregular GI Inspection: Yes normal to inspection Palpation (GI): Soft to palpation, Tenderness to palpation present (GI) (Mild tenderness to deep palpation right upper quadrant laterally), No hepatosplenomegaly present, no hernias and no masses Percussion: Yes normal to percussion Auscultation: normal bowel sounds General: Yes no CVA tenderness Back/Spine/Pelvis Back: no CVA tenderness Skin General skin exam: no rashes or lesions noted Neuro General: oriented to person, oriented to time and confusion Sensory Exam: Sensory deficit (Neuro) Extrem General: Yes normal to inspection, Yes no clubbing, cyanosis or edema and Yes no calf tenderness Results Lab Results Result Diagrams: 10/02/20 08:35 10/02/20 08:35 Lab results: Chemistry 09/30/20 10/01/20 10/02/20 16:02 05:10 08:35 Sodium 136 136 133 L Potassium 4.3 4.3 4.1 Carbon Dioxide 23 16 L 17 L BUN 26 H D 33 H 45 H Creatinine 1.58 H 1.77 H 3.23 H Calcium 8.6 7.6 L D 7.5 L Hematology 09/30/20 10/01/20 10/02/20 16:02 05:10 08:35 WBC 16.0 H 7.5 6.3 Hgb 13.3 11.3 L 11.1 L Plt Count 104 L 71 L D 72 L Urinalysis 03/04/21 18:00 Urine Color YELLOW Urine Appearance CLEAR Urine pH 5.5 Ur Specific Sharps 1.020 Urine Protein 2+ H Urine Glucose (UA) NEG Urine Ketones NEG Urine Blood 1+ H Urine Nitrite NEG Ur Leukocyte Esterase NEG Urine RBC 1-4 Urine WBC 0 Ur Squamous Epith Cells NONE Assessment and Plan (1) Acute cholecystitis: Problem details: Ongoing improvement in symptoms with conservative mgmt. Patient is not a surgical candidate due to her multiple medical issues. Status: Acute The patient has a history of CKD stage 3. She also has a history of type II diabetes mellitus and essential hypertension, atrial fibrillation, hyperlipidemia, congestive heart failure, gastroesophageal reflux disease, oste oporosis, and depression. insomnia, hx of CVA, chronic low back pain, thyroid ca s/p thyroidectomy ( dr vick) thyroid cancer; Records from [facility] [place] ehr obtained and eval by dr Henriquez ..L Hulen w stent and w/u revelaed poor func L kidney 255 and most recently down to 15% and he is arranging stent removal Her creat was at baseline on admission but bumped up today She may have septic EMIGDIO but I would r/o prerenal with LR 100 cc hr she is getting more acidotic so check lactate serially. Procedures Date of Service Date of Service: 10/02/20
--- NOTE | 2020-10-02 14:00 | P.PNIM_ITS ---
Subjective Subjective Date of Service: 10/04/20 Interval History: Patient seen and examined at bedside Patient was reporting abdominal pain improving Constitutional Constitutional: Reports body ache(s), Reports fatigue, Reports poor appetite and Reports weakness Eyes Eyes: Denies blurry vision, Denies dry eyes and Denies itchy eyes ENT Ears, Nose, Mouth, and Throat: Denies dysphagia, Denies vertigo, Denies dizziness, Reports hearing loss and Reports disequilibrium Cardiovascular Cardiovascular: Denies Epigastric Pain, Denies epigastric discomfort, Denies diaphoresis, Denies leg edema, Denies lightheadedness, Denies Loss of Consciousness and Denies dyspnea Respiratory Respiratory: Denies cough, Denies excessive phlegm production and Denies dyspnea Gastrointestinal Gastrointestinal: Reports abdominal pain (Right flank right upper quadrant), Denies melena, Denies hematochezia, Denies change in bowel habits, Denies constipation and Denies dysphagia Musculoskeletal Musculoskeletal: Reports abnormal gait, Reports back pain and Reports arthralgias Neurologic Neurologic: Reports abnormal gait, Reports confusion, Denies vertigo, Denies d izziness, Reports Sensory deficit (Neuro), Reports paresthesias, Reports disequilibrium and Reports weakness Psychiatric Psychiatric: Denies anxiety, Reports confusion and Denies depression Endocrine Endocrine: Reports fatigue Allergic/Immunologic Allergic/Immunologic: Denies itchy eyes Physical Exam Vital Signs: Vital Signs: Last Vital Signs Temp 99.2 F 10/02/20 11:42 Pulse 68 10/02/20 11:42 Resp 18 10/02/20 11:42 BP 135/60 10/02/20 11:42 Pulse Ox 91 L 10/02/20 11:42 Body Mass Index 24.0 Const: Other: . General: cooperative, comfortable and confusion; No acute distress or in distress Nutritional Appearance: average body habitus and other (Frail, elderly) Orientation/consciousness: oriented to person, oriented to time and confusion HENMT: Head: Yes normal to inspection Ears: hearing grossly normal bilaterally Mouth: Normal oral and palatal mucosa present Eyes: General: appearance normal, both eyes and all related structures Visual Dennison: normal visual dennison by confrontation Sclerae: sclerae normal EOM: EOMs intact bilaterally Neck: Neck: Yes normal visual inspection, Yes no lymphadenopathy, Yes trachea midline, No positive Brudzinski's sign, No positive Kernig's sign and No tender Thyroid: Thyroid normal Chest: Chest palpation & inspection: normal inspection of the chest Resp: Effort & Inspection: normal respiratory effort, no audible wheezes and no cough Auscultation: clear to auscultation bilaterally Cardio: Other: . Jugular venous distension: no JVD Rhythm: abnormal rhythm irregularly irregular GI: Inspection: Yes normal to inspection Palpation (GI): Soft to palpation, Tenderness to palpation present (GI) (Mild tenderness to deep palpation right upper quadrant laterally), No hepatosplenomegaly present, no hernias and no masses Percussion: Yes normal to percussion Auscultation: normal bowel sounds : General: Yes no CVA tenderness Back/Spine/Pelvis: Back: no CVA tenderness Skin: General skin exam: no rashes or lesions noted Neuro: General: oriented to person, oriented to time and confusion Sensory Exam: Sensory deficit (Neuro) Extrem: General: Yes normal to inspection, Yes no clubbing, cyanosis or edema and Yes no calf tenderness Objective Data Current Medications Generic Name Dose Route Start Last Admin Trade Name Freq PRN Reason Stop Dose Admin Acetaminophen 650 mg 09/30/20 19:42 Acetaminophen 325 Mg Tablet PO Q6H PRN Pain, Mild (Pain Scale 1-3) Amlodipine Besylate 10 mg 10/01/20 09:00 10/02/20 08:44 Amlodipine Besylate 10 Mg Tablet PO 10 mg DAILY DINESH Administration Protocol Atorvastatin Calcium 40 mg 09/30/20 21:00 10/01/20 20:50 Atorvastatin Calcium 40 Mg Tablet PO 40 mg BEDTIME DINESH Administration Dronedarone 400 mg 09/30/20 21:00 10/02/20 08:44 Dronedarone Hcl 400 Mg Tablet PO 400 mg BID DINESH Administration Gabapentin 300 mg 09/30/20 21:00 10/01/20 20:50 Gabapentin 300 Mg Capsule PO 300 mg BEDTIME DINESH Administration Piperacillin Sod/Tazobactam 50 mls @ 100 mls/hr 10/01/20 01:00 10/02/20 13:47 Sod 2.25 gm/ Sodium Chloride IV Infused Q6H DINESH Infusion Sodium Chloride 1,000 mls @ 125 mls/hr 10/02/20 10:30 10/02/20 10:40 Ns IVCONT 125 mls/hr .Q8H DINESH Administration Insulin Human Lispro 0 unit 09/30/20 21:00 10/02/20 12:36 Insulin Lispro 100 Unit/Ml 3 Ml Vial SUBCUT Not Given QIDACHS [facility] Protocol Levothyroxine Sodium 125 mcg 10/01/20 06:00 10/02/20 05:30 Levothyroxine Sodium 125 Mcg Tablet PO 125 mcg DAILY@0600 [facility] Administration Morphine Sulfate 1 mg 09/30/20 19:42 Morphine Sulfate 4 Mg/Ml Cartridge IVPUSH Q4H PRN Pain, Severe (Pain Scale 7-10) Multivitamins/Minerals 1 tab 10/01/20 09:00 10/02/20 08:44 Multivitamin With Minerals Tablet PO 1 tab DAILY [facility] Administration Omeprazole 20 mg 10/01/20 06:30 10/02/20 05:29 Omeprazole 20 Mg Capsule. PO 20 mg DAILY@0630 [facility] Administration Oxycodone HCl 5 mg 09/30/20 19:39 10/01/20 14:01 Oxycodone Hcl Immed Release 5 Mg Tablet PO 5 mg Q12H PRN Administration pain Pharmacy Consult 1 each 09/30/20 19:41 Consult Rx Vancomycin Dosing MISCELLANE DAILY PRN Consult order Prazosin HCl 5 mg 09/30/20 21:00 10/01/20 20:50 Prazosin Hcl 5 Mg Capsule PO Not Given BEDTIME [facility] Protocol Sertraline HCl 25 mg 10/01/20 09:00 10/02/20 08:44 Sertraline Hcl 25 Mg Tablet PO 25 mg DAILY [facility] Administration Sodium Chloride 3 ml 10/01/20 00:00 10/02/20 08:45 0.9 % Sodium Chloride Flush 3 Ml Syringe IVFLUSH 3 ml QSHIFT [facility] Administration Temazepam 15 mg 09/30/20 20:02 Temazepam 15 Mg Capsule PO BEDTIME PRN Sleep Vitamin D 25 mcg 10/01/20 09:00 10/02/20 08:42 Cholecalciferol (Vitamin D3) 25 Mcg Tablet PO 25 mcg DAILY [facility] Administration Labs CBC & Chem 7: 10/04/20 05:29 10/04/20 05:29 Microbiology Microbiology Results: Microbiology 09/30/20 16:02 Blood - Venous Blood Culture - Preliminary No growth after 24 hours. 09/30/20 16:03 Blood - Venous Blood Culture - Preliminary No growth after 24 hours. Assessment and Plan (1) Acute cholecystitis: Status: Acute Assessment and Plan: 74-year-old female with a past medical history of hypertension, hyperlipidemia, diabetes, CVA with residual left-sided weakness, AFib on Eliquis, hypothyroidism, osteoporosis, chronic kidney disease presented with right-sided abdominal pain noted to have acute cholecystitis. Admitted to the hospital for further management. Sepsis present on admission secondary to Acute cholecystitis improving Abdominal pain resolving Continue IV Zosyn cultures preliminary negative Seen by surgery reconciled given multiple medical problem patient is not a candidate for surgery and as patient's symptoms improving and white count normal recommended holding percutaneous cholecystotomy Surgery following Will advance diet as tolerated Acute kidney injury on chronic kidney injury: Likely prerenal. improving Creatinine trending down Hold nephrotoxins. Nephrology following Hold losartan and Aldactone Mildly elevated troponin with flat trend likely demand mediated from sepsis and cholecystitis No chest pain ACS less likely AFib with RVR improving Continue Lopressor Eliquis on hold for possible percutaneous cholecystotomy Diabetes: Hold metformin. Continue Insulin sliding scale. Hypertension: Continue amlodipine, metoprolol. Losartan on hold for acute kidney injury Pneumonia: CT scan showed bibasilar pneumonia. COVID-19 negative. improving Continue supportive management On Zosyn Hypothyroidism: Continue home levothyroxine History of CVA: Chronic. CT head on presentation showed no acute findings. DVT prophylaxis: SCD boots. Full code
[2020-10-02 14:10] LABS: INTERNATIONAL NORM RATIO 1.6 (0.9-1.1)
[2020-10-02 14:20] LABS: Lactic Acid 0.9 mmol/L (0.5-2.0)
[2020-10-02] MEDS: Lactated Ringers 1,000 ML 125 ML IVCONT ×2 (15:41→23:44)
[2020-10-02 16:57] LABS: Glucose, Whole Blood 117 mg/dL (60-115)
--- NOTE | 2020-10-02 18:21 | PC.NURSE ---
Pt went into Afib and frequent PVCs and PACs this morning. Episode was was short, but returned back to sinus rhythm with occasional PACs and PVCs. Asymptomatic. Provider notified. Will continue to monitor rhythm changes.
[2020-10-02] MEDS: Prazosin HCL 5 MG CAPSULE PO (20:42)
[2020-10-02] MEDS: Atorvastatin Calcium 40 MG TABLET PO (20:42)
[2020-10-02] MEDS: Gabapentin 300 MG CAPSULE PO (20:43)
[2020-10-02 20:54] LABS: Glucose, Whole Blood 121 mg/dL (60-115)
[2020-10-03] VITALS (8 sets, daily range): BP systolic 134–168; BP diastolic 51–80; PULSE 60–83; RESP 16–20; TEMP 36–37.1; O2SAT 94–96
[2020-10-03] MEDS: Piperacillin Sodium/Tazobactam 2.25 GM in 0.9 % Sodium Chloride 50 ML IV ×4 (01:37→18:28)
--- NOTE | 2020-10-03 02:40 | MHC.PIE ---
P.1.2 SECOND PAUSE I.PT WITH 1.2 SEC PAUSE.ASLEEP,ASYMPTOMATIC. MONITOR SR WITH PAC'S. UPDATED.NO NEW ORDERS AT THIS TIME. E.CONT TO MONITOR HR.
[2020-10-03 05:52] LABS: INTERNATIONAL NORM RATIO 1.5 (0.9-1.1); Prothrombin Time 18.2 SEC (10.8-13.0)
[2020-10-03] MEDS: Levothyroxine Sodium 125 MCG TABLET PO (05:53)
[2020-10-03] MEDS: Omeprazole 20 MG CAPSULE.DR PO (05:53)
[2020-10-03] MEDS: Lactated Ringers 1,000 ML 125 ML IVCONT ×2 (07:46→15:46)
[2020-10-03 08:07] LABS: Glucose, Whole Blood 101 mg/dL (60-115)
[2020-10-03 08:50] LABS: Hematocrit 29.3 % (37-47); Hemoglobin 10.3 g/dl (12.0-16.0); Mean Corpuscular HGB Conc 35.2 g/dl (31.0-35.0); Mean Corpuscular Volume 85.4 fL (80-98); Mean Platelet Volume 12.6 fL (9.4-12.3); Red Blood Count 3.43 X10*6/uL (4.20-5.50); Red Cell Distribution Width 12.4 % (11.0-16.0)
[2020-10-03 08:51] LABS: Platelet Count 75 X10*3/uL (160-400)
[2020-10-03 09:18] LABS: Anion Gap 10 (12-20); Blood Urea Nitrogen 40 mg/dL (9-16); Calcium 7.6 mg/dL (8.4-10.2); Carbon Dioxide 20 mmol/L (22-29); Chloride 111 mmol/L (96-108); Creatinine Clr Calc Pharmacy 16.7; Estimated Glomerular Filt Rate 20; Glucose Random 103 mg/dL (60-115); Potassium 3.8 mmol/L (3.3-5.1); Sodium 137 mmol/L (135-145)
[2020-10-03] MEDS: amLODIPine Besylate 10 MG TABLET PO (09:22)
[2020-10-03] MEDS: Sertraline HCL 25 MG TABLET PO (09:22)
[2020-10-03] MEDS: Cholecalciferol (Vitamin D3) 25 MCG TABLET PO (09:22)
[2020-10-03] MEDS: Dronedarone HCl 400 MG TABLET PO ×2 (09:22→21:07)
--- NOTE | 2020-10-03 09:29 | P.PNGS_ITS ---
Subjective Subjective Date of Service: 10/03/20 <JASMYNE Joshua - Last Filed: 10/03/20 09:35> 10/03/20 <Guerita King MD - Last Filed: 10/03/20 11:12> Interval history: Ongoing, mild RUQ discomfort. No new complaints. Denies N/V. Tolerating a liquid diet. <JASMYNE Joshua - Last Filed: 10/03/20 09:35> Physical Exam Vital Signs: Vital Signs: Last Vital Signs Temp 98.4 F 10/03/20 07:54 Pulse 70 10/03/20 09:22 Resp 18 10/03/20 07:54 BP 157/68 H 10/03/20 09:22 Pulse Ox 96 10/03/20 07:54 Body Mass Index 24.0 <JASMYNE Joshua - Last Filed: 10/03/20 09:35> Const: General: comfortable and no acute distress <JASMYNE Joshua - Last Filed: 10/03/20 09:35> Resp: Effort & Inspection: normal respiratory effort <JASMYNE Joshua - Last Filed: 10/03/20 09:35> Auscultation: clear to auscultation bilaterally <JASMYNE Joshua - Last Filed: 10/03/20 09:35> Cardio: Rate: regular rate <JASMYNE Joshua - Last Filed: 10/03/20 09:35> Heart sounds: S1 normal heart sound present and S2 normal heart sound present <JASMYNE Joshua - Last Filed: 10/03/20 09:35> GI: Inspection: Yes normal to inspection <JASMYNE Joshua - Last Filed: 10/03/20 09:35> Palpation (GI): Soft to palpation and Tenderness to palpation present (GI) (mild with deep palpation.) in the RUQ <JASMYNE Joshua Last Filed: 10/03/20 09:35> Auscultation: normal bowel sounds <JASMYNE Joshua - Last Filed: 10/03/20 09:35> Skin: General skin exam: no rashes or lesions noted <JASMYNE Joshua - Last Filed: 10/03/20 09:35> Extrem: General: Yes no calf tenderness <JASMYNE Joshua - Last Filed: 10/03/20 09:35> Progress Note: A&P Assessment and plan (1) Acute cholecystitis: Problem details: Ongoing improvement in symptoms with conservative mgmt. Patient is not a surgical candidate due to her multiple medical issues. Should intervention be needed in the future percutaneous drainageof the GB would be recommended. <JASMYNE Joshua - Last Filed: 10/03/20 09:35> Status: Acute <JASMYNE Joshua - Last Filed: 10/03/20 09:35> Assessment and Plan: Continue conservative mgmt ABX, IVF, pain mgmt Hospitalist service managing her EMIGDIO, creatinine was elevated but is downtrending this AM <JASMYNE Joshua - Last Filed: 10/03/20 09:35> . General Surgery Attending - Kwame King M.D. Patient was evaluated and examined at the bedside with Mr. Cm Francois PA-C. I confirm above findings and plan as documented. Pt continues to be stable on Abx. On my exam, with deep palpation, patient states No Dolor . Overall she is stable on current nonsurgical strategy. <Guerita King MD - Last Filed: 10/03/20 11:12> Fall Risk Details Current Medications: Current Medications Generic Name Dose Route Start Last Admin Trade Name Freq PRN Reason Stop Dose Admin Acetaminophen 650 mg 09/30/20 19:42 Acetaminophen 325 Mg Tablet PO Q6H PRN Pain, Mild (Pain Scale 1-3) Amlodipine Besylate 10 mg 10/01/20 09:00 10/03/20 09:22 Amlodipine Besylate 10 Mg Tablet PO 10 mg DAILY DINESH Administration Protocol Atorvastatin Calcium 40 mg 09/30/20 21:00 10/02/20 20:42 Atorvastatin Calcium 40 Mg Tablet PO 40 mg BEDTIME DINESH Administration Dronedarone 400 mg 09/30/20 21:00 10/03/20 09:22 Dronedarone Hcl 400 Mg Tablet PO 400 mg BID DINESH Administration Gabapentin 300 mg 09/30/20 21:00 10/02/20 20:43 Gabapentin 300 Mg Capsule PO 300 mg BEDTIME DINESH Administration Piperacillin Sod/Tazobactam 50 mls @ 100 mls/hr 10/01/20 01:00 10/03/20 07:19 Sod 2.25 gm/ Sodium Chloride IV Infused Q6H DINESH Infusion Lactated Ringer's 1,000 mls @ 125 mls/hr 10/02/20 15:00 10/03/20 07:46 Lr IVCONT 125 mls/hr .Q8H DINESH Administration Insulin Human Lispro 0 unit 09/30/20 21:00 10/03/20 07:58 Insulin Lispro 100 Unit/Ml 3 Ml Vial SUBCUT Not Given QIDACHS [facility] Protocol Levothyroxine Sodium 125 mcg 10/01/20 06:00 10/03/20 05:53 Levothyroxine Sodium 125 Mcg Tablet PO 125 mcg DAILY@0600 [facility] Administration Morphine Sulfate 1 mg 09/30/20 19:42 Morphine Sulfate 4 Mg/Ml Cartridge IVPUSH Q4H PRN Pain, Severe (Pain Scale 7-10) Multivitamins/Minerals 1 tab 10/01/20 09:00 10/03/20 09:22 Multivitamin With Minerals Tablet PO 1 tab DAILY DINESH Administration Omeprazole 20 mg 10/01/20 06:30 10/03/20 05:53 Omeprazole 20 Mg Capsule. PO 20 mg DAILY@0630 [facility] Administration Oxycodone HCl 5 mg 09/30/20 19:39 10/01/20 14:01 Oxycodone Hcl Immed Release 5 Mg Tablet PO 5 mg Q12H PRN Administration pain Pharmacy Consult 1 each 09/30/20 19:41 Consult Rx Vancomycin Dosing MISCELLANE DAILY PRN Consult order Prazosin HCl 5 mg 09/30/20 21:00 10/02/20 20:42 Prazosin Hcl 5 Mg Capsule PO 5 mg BEDTIME DINESH Administration Protocol Sertraline HCl 25 mg 10/01/20 09:00 10/03/20 09:22 Sertraline Hcl 25 Mg Tablet PO 25 mg DAILY DINESH Administration Sodium Chloride 3 ml 10/01/20 00:00 10/03/20 09:22 0.9 % Sodium Chloride Flush 3 Ml Syringe IVFLUSH Not Given QSHIFT [facility] Temazepam 15 mg 09/30/20 20:02 Temazepam 15 Mg Capsule PO BEDTIME PRN Sleep Vitamin D 25 mcg 10/01/20 09:00 10/03/20 09:22 Cholecalciferol (Vitamin D3) 25 Mcg Tablet PO 25 mcg DAILY DINESH Administration <JASMYNE Joshua - Last Filed: 10/03/20 09:35> Time Spent With Patient Time: Total time spent is greater than 50% in coordination of care (as documented) at patient's floor/unit and/or counseling patient: <JASMYNE Joshua - Last Filed: 10/03/20 09:35> Time with patient: less than 15 minutes <Guerita King MD - Last Filed: 10/03/20 11:12> Procedures Date of Service Date of Service: 10/03/20 <Guerita King MD - Last Filed: 10/03/20 11:12>
[2020-10-03 11:44] LABS: Glucose, Whole Blood 109 mg/dL (60-115)
--- NOTE | 2020-10-03 12:20 | P.PNNP_ITS ---
Subjective Subjective Date of Service: 10/03/20 Interval history: Patient seen and examined at bedside Patient was reporting abdominal pain improving Physical Exam Vital Signs: Vital Signs: Last Vital Signs Temp 98.4 F 10/03/20 07:54 Pulse 70 10/03/20 09:22 Resp 18 10/03/20 07:54 BP 157/68 H 10/03/20 09:22 Pulse Ox 96 10/03/20 07:54 Body Mass Index 24.0 Const: Other: . General: cooperative, comfortable, no acute distress and confusion; No acute distress or in distress Nutritional Appearance: average body habitus and other (Frail, elderly) Orientation/consciousness: oriented to person, oriented to time and confusion HENMT: Head: Yes normal to inspection Ears: hearing grossly normal bilaterally Mouth: Normal oral and palatal mucosa present Eyes: General: appearance normal, both eyes and all related structures Visual Dennison: normal visual dennison by confrontation Sclerae: sclerae normal EOM: EOMs intact bilaterally Neck: Other: Well-healed transverse suprasternal notch scar Neck: Yes normal visual inspection, Yes no lymphadenopathy, Yes trachea midline, No positive Br udzinski's sign, No positive Kernig's sign and No tender Thyroid: Thyroid normal Chest: Chest palpation & inspection: normal inspection of the chest Resp: Effort & Inspection: normal respiratory effort, no audible wheezes and no cough Auscultation: clear to auscultation bilaterally Cardio: Other: . Jugular venous distension: no JVD Rate: regular rate Rhythm: abnormal rhythm irregularly irregular Heart sounds: S1 normal heart sound present and S2 normal heart sound present GI: Inspection: Yes normal to inspection Palpation (GI): Soft to palpation, Tenderness to palpation present (GI) (mild with deep palpation.) in the RUQ, No hepatosplenomegaly present, no hernias and no masses Percussion: Yes normal to percussion Auscultation: normal bowel sounds : General: Yes no CVA tenderness Back/Spine/Pelvis: Back: no CVA tenderness Skin: General skin exam: no rashes or lesions noted Neuro: General: oriented to person, oriented to time and confusion Sensory Exam: Sensory deficit (Neuro) Extrem: General: Yes normal to inspection, Yes no clubbing, cyanosis or edema and Yes no calf tenderness Objective Data Labs CBC & Chem 7: 10/03/20 08:34 10/03/20 08:34 Labs: Laboratory Results - last 24 hr 10/02/20 10/02/20 10/02/20 13:49 13:49 16:52 WBC RBC Hgb Hct MCV MCH MCHC RDW Plt Count MPV Absolute Nucleated RBC Nucleated RBC % (auto) PT 19.0 H D INR 1.6 H Sodium Potassium Chloride Carbon Dioxide Anion Gap BUN Creatinine Estim Creat Clear Calc Estimated GFR POC Glucose 117 H Random Glucose Lactic Acid 0.9 Calcium 10/02/20 10/03/20 10/03/20 20:49 04:50 07:53 WBC RBC Hgb Hct MCV MCH MCHC RDW Plt Count MPV Absolute Nucleated RBC Nucleated RBC % (auto) PT 18.2 H INR 1.5 H Sodium Potassium Chloride Carbon Dioxide Anion Gap BUN Creatinine Estim Creat Clear Calc Estimated GFR POC Glucose 121 H 101 Random Glucose Lactic Acid Calcium 10/03/20 10/03/20 10/03/20 08:34 08:34 11:41 WBC 5.0 RBC 3.43 L Hgb 10.3 L Hct 29.3 L MCV 85.4 MCH 30.0 MCHC 35.2 H RDW 12.4 Plt Count 75 L MPV 12.6 H Absolute Nucleated RBC 0.000 Nucleated RBC % (auto) 0.0 PT INR Sodium 137 Potassium 3.8 Chloride 111 H Carbon Dioxide 20 L Anion Gap 10 L BUN 40 H Creatinine 2.38 H Estim Creat Clear Calc 16.7 Estimated GFR 20 POC Glucose 109 Random Glucose 103 D Lactic Acid Calcium 7.6 L Microbiology Microbiology Results: Microbiology 09/30/20 16:02 Blood - Venous Blood Culture - Preliminary No growth after 48 hours. 09/30/20 16:03 Blood - Venous Blood Culture - Preliminary No growth after 48 hours. Assessment & Plan Assessment and plan (1) Acute cholecystitis: Status: Acute (2) EMIGDIO (acute kidney injury): Problem details: resolving EMIGDIO no new suggestions Status: Acute Time Spent With Patient Time: Total time spent is greater than 50% in coordination of care (as documented) at patient's floor/unit and/or counseling patient: Procedures Date of Service Date of Service: 10/03/20
--- NOTE | 2020-10-03 12:31 | HO.PM.IMPN ---
Subjective Subjective Date of Service: 10/03/20 Interval History: seen and examined this AM denies pain reports eating her breakfast ROS General - no fevers or chills Cardiovascular - no chest pain Respiratory - no shortness of breath or cough Abdominal- no abdominal pain, nausea, vomiting, diarrhea Physical Exam Vital Signs: Vital Signs: Last Vital Signs Temp 98.4 F 10/03/20 07:54 Pulse 70 10/03/20 09:22 Resp 18 10/03/20 07:54 BP 157/68 H 10/03/20 09:22 Pulse Ox 96 10/03/20 07:54 Body Mass Index 24.0 Const: Other: General - no acute distress, appears comfortable Cardiovascular - regular rate and rhythm, S1-S2 Lungs - normal respiratory effort, clear to auscultation bilaterally, no wheezing Abdomen - soft, nd, no RUQ ttp appreciated Extremities - no edema bilaterally Neuro - awake and alert, no focal deficits Objective Data Current Medications Generic Name Dose Route Start Last Admin Trade Name Freq PRN Reason Stop Dose Admin Acetaminophen 650 mg 09/30/20 19:42 Acetaminophen 325 Mg Tablet PO Q6H PRN Pain, Mild (Pain Scale 1-3) Amlodipine Besylate 10 mg 10/01/20 09:00 10/03/20 09:22 Amlodipine Besylate 10 Mg Tablet PO 10 mg DAILY DINESH Administration Protocol Atorvastatin Calcium 40 mg 09/30/20 21:00 10/02/20 20:42 Atorvastatin Calcium 40 Mg Tablet PO 40 mg BEDTIME DINESH Administration Dronedarone 400 mg 09/30/20 21:00 10/03/20 09:22 Dronedarone Hcl 400 Mg Tablet PO 400 mg BID DINESH Administration Gabapentin 300 mg 09/30/20 21:00 10/02/20 20:43 Gabapentin 300 Mg Capsule PO 300 mg BEDTIME DINESH Administration Piperacillin Sod/Tazobactam 50 mls @ 100 mls/hr 10/01/20 01:00 10/03/20 07:19 Sod 2.25 gm/ Sodium Chloride IV Infused Q6H DINESH Infusion Lactated Ringer's 1,000 mls @ 125 mls/hr 10/02/20 15:00 10/03/20 07:46 Lr IVCONT 125 mls/hr .Q8H DINESH Administration Insulin Human Lispro 0 unit 09/30/20 21:00 10/03/20 11:48 Insulin Lispro 100 Unit/Ml 3 Ml Vial SUBCUT Not Given QIDACHS [facility] Protocol Levothyroxine Sodium 125 mcg 10/01/20 06:00 10/03/20 05:53 Levothyroxine Sodium 125 Mcg Tablet PO 125 mcg DAILY@0600 [facility] Administration Morphine Sulfate 1 mg 09/30/20 19:42 Morphine Sulfate 4 Mg/Ml Cartridge IVPUSH Q4H PRN Pain, Severe (Pain Scale 7-10) Multivitamins/Minerals 1 tab 10/01/20 09:00 10/03/20 09:22 Multivitamin With Minerals Tablet PO 1 tab DAILY DINESH Administration Omeprazole 20 mg 10/01/20 06:30 10/03/20 05:53 Omeprazole 20 Mg Capsule. PO 20 mg DAILY@0630 [facility] Administration Oxycodone HCl 5 mg 09/30/20 19:39 10/01/20 14:01 Oxycodone Hcl Immed Release 5 Mg Tablet PO 5 mg Q12H PRN Administration pain Pharmacy Consult 1 each 09/30/20 19:41 Consult Rx Vancomycin Dosing MISCELLANE DAILY PRN Consult order Prazosin HCl 5 mg 09/30/20 21:00 10/02/20 20:42 Prazosin Hcl 5 Mg Capsule PO 5 mg BEDTIME [facility] Administration Protocol Sertraline HCl 25 mg 10/01/20 09:00 10/03/20 09:22 Sertraline Hcl 25 Mg Tablet PO 25 mg DAILY DINESH Administration Sodium Chloride 3 ml 10/01/20 00:00 10/03/20 09:22 0.9 % Sodium Chloride Flush 3 Ml Syringe IVFLUSH Not Given QSHIFT [facility] Temazepam 15 mg 09/30/20 20:02 Temazepam 15 Mg Capsule PO BEDTIME PRN Sleep Vitamin D 25 mcg 10/01/20 09:00 10/03/20 09:22 Cholecalciferol (Vitamin D3) 25 Mcg Tablet PO 25 mcg DAILY DINESH Administration Labs CBC & Chem 7: 10/03/20 08:34 10/03/20 08:34 Microbiology Microbiology Results: Microbiology 09/30/20 16:02 Blood - Venous Blood Culture - Preliminary No growth after 48 hours. 09/30/20 16:03 Blood - Venous Blood Culture - Preliminary No growth after 48 hours. Assessment and Plan (1) Acute cholecystitis: Status: Acute Assessment and Plan: 74-year-old female with a past medical history of hypertension, hyperlipidemia, diabetes, CVA with residual left-sided weakness, AFib on Eliquis, hypothyroidism, osteoporosis, chronic kidney disease presented with right-sided abdominal pain noted to have acute cholecystitis. Admitted to the hospital for further management. 1. Sepsis POA secondary to acute pako deemded a non-surgical candidate and treated medically IV zosyn cultures negative to date Gen Surg on board 2. EMIGDIO on CDK3 suspected pre-renal improving with IVF continue to monitor i/o 3. A. Fib RVR continue metoprolol Eliquis on hold in case any invasive intervetion needed 4. Elevated trop-I Flat, secondary to sepsis / RVR 5. DM sliding scale 6. Hypothyroidism synthroid 7. History of CVA no acute changes Full Code DVT pptx, mechanical
[2020-10-03] MEDS: oxyCODONE HCl Immed Release 5 MG TABLET PO (13:55)
[2020-10-03 16:07] LABS: Glucose, Whole Blood 106 mg/dL (60-115)
[2020-10-03 19:59] LABS: Glucose, Whole Blood 100 mg/dL (60-115)
[2020-10-03] MEDS: Gabapentin 300 MG CAPSULE PO (21:07)
[2020-10-03] MEDS: Atorvastatin Calcium 40 MG TABLET PO (21:08)
[2020-10-03] MEDS: Prazosin HCL 5 MG CAPSULE PO (21:08)
[2020-10-04] VITALS (9 sets, daily range): BP systolic 130–195; BP diastolic 54–81; PULSE 72–107; RESP 18; TEMP 36.8–37.2; O2SAT 93–100
[2020-10-04] MEDS: Lactated Ringers 1,000 ML 125 ML IVCONT ×3 (01:04→18:42)
[2020-10-04] MEDS: Piperacillin Sodium/Tazobactam 2.25 GM in 0.9 % Sodium Chloride 50 ML IV ×4 (01:04→19:24)
[2020-10-04] MEDS: Levothyroxine Sodium 125 MCG TABLET PO (05:42)
[2020-10-04] MEDS: Omeprazole 20 MG CAPSULE.DR PO (05:42)
[2020-10-04 06:43] LABS: Hematocrit 31.3 % (37-47); Hemoglobin 10.7 g/dl (12.0-16.0); Mean Corpuscular HGB Conc 34.2 g/dl (31.0-35.0); Mean Corpuscular Hemoglobin 29.4 pg (27.0-33.0); Mean Platelet Volume 12.9 fL (9.4-12.3); Red Blood Count 3.64 X10*6/uL (4.20-5.50); Red Cell Distribution Width 12.3 % (11.0-16.0); White Blood Count 4.9 X10*3/uL (4.8-10.8)
[2020-10-04 06:50] LABS: Blood Urea Nitrogen 29 mg/dL (9-16); Calcium 8.2 mg/dL (8.4-10.2); Creatinine Clr Calc Pharmacy 22.8; Estimated Glomerular Filt Rate 29; Glucose Random 92 mg/dL (60-115)
[2020-10-04 07:10] LABS: Platelet Count 91 X10*3/uL (160-400)
[2020-10-04] MEDS: Dronedarone HCl 400 MG TABLET PO ×2 (07:31→20:51)
[2020-10-04] MEDS: Sertraline HCL 25 MG TABLET PO (07:32)
[2020-10-04] MEDS: Cholecalciferol (Vitamin D3) 25 MCG TABLET PO (07:32)
[2020-10-04] MEDS: amLODIPine Besylate 10 MG TABLET PO (07:32)
[2020-10-04] MEDS: 0.9 % Sodium Chloride Flush 3 ML SYRINGE IVFLUSH (07:33)
[2020-10-04] MEDS: oxyCODONE HCl Immed Release 5 MG TABLET PO (07:47)
[2020-10-04 07:50] LABS: Anion Gap 14 (12-20); Carbon Dioxide 19 mmol/L (22-29); Chloride 111 mmol/L (96-108); Potassium 3.8 mmol/L (3.3-5.1); Sodium 140 mmol/L (135-145)
[2020-10-04 08:26] LABS: Glucose, Whole Blood 90 mg/dL (60-115)
--- NOTE | 2020-10-04 10:55 | MHC.CM.PN ---
Patient is on clear liquid diet for acute cholecystitis and IV Zosyn, IV MS. Patient is not a surgical candidate and might need a drain placed in [facility] some time in the future. Discharge plan is home with sister and CCA, may need assist with transport. CM will continue to follow patient for discharge needs.
[2020-10-04] MEDS: Morphine Sulfate 4 MG/ML CARTRIDGE 1 MG IVPUSH (11:00)
[2020-10-04 11:38] LABS: Glucose, Whole Blood 92 mg/dL (60-115)
[2020-10-04 16:46] LABS: Glucose, Whole Blood 130 mg/dL (60-115)
--- NOTE | 2020-10-04 18:42 | P.PNNP_ITS ---
Subjective Subjective Date of Service: 10/04/20 Interval history: Seen and examiend. Events noted Physical Exam Vital Signs: Vital Signs: Last Vital Signs Temp 98.9 F 10/04/20 15:53 Pulse 107 H 10/04/20 15:53 Resp 18 10/04/20 15:53 BP 155/70 H 10/04/20 15:59 Pulse Ox 94 10/04/20 15:53 Body Mass Index 24.0 Const: Other: . General: cooperative, comfortable, no acute distress and confusion; No acute distress or in distress Nutritional Appearance: average body habitus and other (Frail, elderly) Orientation/consciousness: oriented to person, oriented to time and confusion HENMT: Head: Yes normal to inspection Ears: hearing grossly normal [place] aterally Mouth: Normal oral and palatal mucosa present Eyes: General: appearance normal, both eyes and all related structures Visual Dennison: normal visual dennison by confrontation Sclerae: sclerae normal EOM: EOMs intact bilaterally Neck: Other: Well-healed transverse suprasternal notch scar Neck: Yes normal visual inspection, Yes no lymphadenopathy, Yes trachea midline, No positive Brudzinski's sign, No positive Kernig's sign and No tender Thyroid: Thyroid normal Chest: Chest palpation & inspection: normal inspection of the chest Resp: Effort & Inspection: normal respiratory effort, no audible wheezes and no cough Auscultation: clear to auscultation bilaterally Cardio: Other: . Jugular venous distension: no JVD Rate: regular rate Rhythm: abnormal rhythm irregularly irregular Heart sounds: S1 normal heart sound present and S2 normal heart sound present GI: Inspection: Yes normal to inspection Palpation (GI): Soft to palpation, Tenderness to palpation present (GI) (mild with deep palpation.) in the RUQ, No hepatosplenomegaly present, no hernias and no masses Percussion: Yes normal to percussion Auscultation: normal bowel sounds : General: Yes no CVA tenderness Back/Spine/Pelvis: Back: no CVA tenderness Skin: General skin exam: no rashes or lesions noted Neuro: General: oriented to person, oriented to time and confusion Sensory Exam: Sensory deficit (Neuro) Extrem: General: Yes normal to inspection, Yes no clubbing, cyanosis or edema and Yes no calf tenderness Objective Data Labs CBC & Chem 7: 10/04/20 05:29 10/04/20 05:29 Labs: Laboratory Results - last 24 hr 10/03/20 10/04/20 10/04/20 19:55 05:29 05:29 WBC 4.9 RBC 3.64 L Hgb 10.7 L Hct 31.3 L MCV 86.0 MCH 29.4 MCHC 34.2 RDW 12.3 Plt Count 91 L MPV 12.9 H Absolute Nucleated RBC 0.000 Nucleated RBC % (auto) 0.0 Sodium 140 Potassium 3.8 Chloride 111 H Carbon Dioxide 19 L Anion Gap 14 BUN 29 H Creatinine 1.75 H Estim Creat Clear Calc 22.8 Estimated GFR 29 POC Glucose 100 Random Glucose 92 Calcium 8.2 L D 10/04/20 10/04/20 10/04/20 08:21 11:28 16:37 WBC RBC Hgb Hct MCV MCH MCHC RDW Plt Count MPV Absolute Nucleated RBC Nucleated RBC % (auto) Sodium Potassium Chloride Carbon Dioxide Anion Gap BUN Creatinine Estim Creat Clear Calc Estimated GFR POC Glucose 90 92 130 H Random Glucose Calcium Laboratory Tests 09/27/20 09/30/20 10/01/20 21:07 16:02 05:10 Creatinine 1.13 1.58 H 1.77 H 10/02/20 10/04/20 08:35 05:29 Creatinine 3.23 H 1.75 H Microbiology Microbiology Results: Microbiology 09/30/20 16:02 Blood - Venous Blood Culture - Preliminary No growth after 48 hours. 09/30/20 16:03 Blood - Venous Blood Culture - Preliminary No growth after 48 hours. Assessment & Plan Assessment and plan (1) Acute cholecystitis: Status: Acute Assessment and Plan: 74-year-old female with a past medical history of hypertension, hyperlipidemia, diabetes, CVA with residual left-sided weakness, AFib on Eliquis, hypothyroidism, osteoporosis, chronic kidney disease stage 3 presented with right-sided abdominal pain noted to have acute cholecystitis. Admitted to the hospital for further management. 1. EMIGDIO: resolving c/w ATN event and Scr still not back to bsl 2. CKD 3 3. Acute Gladys ? REC: cont torack renal func; avoid NToxins; cont to hold diuretics and ARB Time Spent With Patient Time: Total time spent is greater than 50% in coordination of care (as documented) at patient's floor/unit and/or counseling patient: Procedures Date of Service Date of Service: 10/04/20
[2020-10-04 20:46] LABS: Glucose, Whole Blood 244 mg/dL (60-115)
[2020-10-04] MEDS: Acetaminophen 325 MG TABLET 650 MG PO (20:49)
[2020-10-04] MEDS: Atorvastatin Calcium 40 MG TABLET PO (20:50)
[2020-10-04] MEDS: Prazosin HCL 5 MG CAPSULE PO (20:50)
[2020-10-04] MEDS: Gabapentin 300 MG CAPSULE PO (20:51)
[2020-10-04] MEDS: Insulin Lispro 100 UNIT/ML 3 ML VIAL SUBCUT (21:10)
[2020-10-05] VITALS (19 sets, daily range): BP systolic 137–178; BP diastolic 52–84; PULSE 18–102; RESP 18–20; TEMP 36.2–38.6; O2SAT 93–98
[2020-10-05] MEDS: Piperacillin Sodium/Tazobactam 2.25 GM in 0.9 % Sodium Chloride 50 ML IV ×3 (01:11→19:02)
[2020-10-05] MEDS: 0.9 % Sodium Chloride Flush 3 ML SYRINGE IVFLUSH ×3 (01:12→17:00)
[2020-10-05] MEDS: Lactated Ringers 1,000 ML 125 ML IVCONT (03:44)
[2020-10-05] MEDS: Omeprazole 20 MG CAPSULE.DR PO (05:42)
[2020-10-05] MEDS: Levothyroxine Sodium 125 MCG TABLET PO (05:42)
[2020-10-05 06:43] LABS: Basophils Percent Auto 0.1 % (0-2); Eosinophils Percent Auto 0.4 % (0-4); Hematocrit 32.9 % (37-47); Hemoglobin 11.4 g/dl (12.0-16.0); Imm Gran Abs Auto 0.05 X10*3/uL (0.00-0.03); Imm Gran Pct Auto 0.7 % (0.0-0.4); Lymphocytes Absolute Auto 0.7 X10*3/uL (1.2-4.9); Lymphocytes Percent Auto 10.2 % (20-40); MANUAL DIFF FLAG NO; Mean Corpuscular HGB Conc 34.7 g/dl (31.0-35.0); Mean Corpuscular Hemoglobin 29.6 pg (27.0-33.0); Mean Corpuscular Volume 85.5 fL (80-98); Monocytes Absolute Auto 0.7 X10*3/uL (0.1-1.2); Monocytes Percent Auto 10.4 % (2-11); Neutrophils Absolute Auto 5.5 X10*3/uL (2.0-8.3); Neutrophils Percent Auto 78.2 % (45-73); Platelet Count 109 X10*3/uL (160-400); Red Blood Count 3.85 X10*6/uL (4.20-5.50); Red Cell Distribution Width 12.2 % (11.0-16.0); White Blood Count 7.1 X10*3/uL (4.8-10.8)
[2020-10-05 06:53] LABS: Anion Gap 13 (12-20); Blood Urea Nitrogen 18 mg/dL (9-16); Carbon Dioxide 19 mmol/L (22-29); Chloride 111 mmol/L (96-108); Creatinine Clr Calc Pharmacy 29.5; Estimated Glomerular Filt Rate 39; Glucose Random 131 mg/dL (60-115); Potassium 3.7 mmol/L (3.3-5.1); Sodium 139 mmol/L (135-145)
[2020-10-05 07:18] LABS: Glucose, Whole Blood 134 mg/dL (60-115)
[2020-10-05] MEDS: Acetaminophen 325 MG TABLET 650 MG PO (07:37)
[2020-10-05] MEDS: Dronedarone HCl 400 MG TABLET PO ×2 (07:38→21:11)
[2020-10-05] MEDS: amLODIPine Besylate 10 MG TABLET PO (07:38)
[2020-10-05] MEDS: Sertraline HCL 25 MG TABLET PO (07:38)
[2020-10-05] MEDS: Cholecalciferol (Vitamin D3) 25 MCG TABLET PO (07:38)
[2020-10-05 09:18] LABS: INTERNATIONAL NORM RATIO 1.5 (0.9-1.1); Prothrombin Time 17.9 SEC (10.8-13.0)
[2020-10-05 10:01] LABS: COVID-19 Test Negative (Negative)
[2020-10-05 11:23] LABS: Glucose, Whole Blood 132 mg/dL (60-115)
--- NOTE | 2020-10-05 13:27 | P.PNGS_ITS ---
Subjective Subjective Date of Service: 10/05/20 Interval history: Asked to re-consult on this patient given an episode of a temp to 101.4 early this morning. No significant clinical changes. Patient had clinically been improving from acute cholecystitis being treated conservatively with IV antibiotics. Patient has been tolerating regular diet and denies abdominal pain. Hospitalist report there is no significant other source for a fever. Physical Exam Vital Signs: Vital Signs: Last Vital Signs Temp 98 F 10/05/20 11:26 Pulse 80 10/05/20 11:26 Resp 18 10/05/20 11:26 BP 137/76 10/05/20 11:26 Pulse Ox 98 10/05/20 11:26 Body Mass Index 24.0 Const: Other: Very sleepy but arousable and answers questions appropriately General: comfortable, no acute distress and lethargic Orientation/consciousness: lethargic GI: Palpation (GI): Soft to palpation, Tenderness to palpation present (GI) (Minimally tender to deep palpation right upper quadrant), no guarding, hepatosplenomegaly present, no hernias and no masses Extrem: General: Yes normal to inspection, Yes no clubbing, cyanosis or edema and Yes no calf tenderness Progress Note: A&P Assessment and plan (1) Acute cholecystitis: Status: Acute Assessment and Plan: This is a 74-year-old lady who is currently being treated with conservative management using IV antibiotics for treatment of acute cholecystitis with improvement clinically. Patient has an isolated event a temperature to 101.4 this morning. On exam the patient is very comfortable and there is no significant tenderness to palpation of the abdomen. Given this a 2nd source of infection should be sought. I recommended the patient undergo a CT scan of the abdomen and pelvis and possibly had a chest CT to rule out other sources as I do not believe that her cholecystitis as worsened. Would hold off on para cutaneous cholecystostomy tube at this point until there is a reading on the CT scan that was performed. Continue IV antibiotics. I reviewed the CT scan myself and do not see any obvious findings although there is no contrast on the CT scan. I also discussed this patient with the hospitalist caring for her today. Fall Risk Details Current Medications: Current Medications Generic Name Dose Route Start Last Admin Trade Name Freq PRN Reason Stop Dose Admin Acetaminophen 650 mg 09/30/20 19:42 10/05/20 07:37 Acetaminophen 325 Mg Tablet PO 650 mg Q6H PRN Administration Pain, Mild (Pain Scale 1-3) Amlodipine Besylate 10 mg 10/01/20 09:00 10/05/20 07:38 Amlodipine Besylate 10 Mg Tablet PO 10 mg DAILY DINESH Administration Protocol Atorvastatin Calcium 40 mg 09/30/20 21:00 10/04/20 20:50 Atorvastatin Calcium 40 Mg Tablet PO 40 mg BEDTIME DINESH Administration Dronedarone 400 mg 09/30/20 21:00 10/05/20 07:38 Dronedarone Hcl 400 Mg Tablet PO 400 mg BID DINESH Administration Gabapentin 300 mg 09/30/20 21:00 10/04/20 20:51 Gabapentin 300 Mg Capsule PO 300 mg BEDTIME DINESH Administration Piperacillin Sod/Tazobactam 50 mls @ 100 mls/hr 10/01/20 01:00 10/05/20 09:20 Sod 2.25 gm/ Sodium Chloride IV Infused Q6H DINESH Infusion Lactated Ringer's 1,000 mls @ 125 mls/hr 10/02/20 15:00 10/05/20 03:44 Lr IVCONT 125 mls/hr .Q8H DINESH Administration Insulin Human Lispro 0 unit 09/30/20 21:00 10/05/20 12:09 Insulin Lispro 100 Unit/Ml 3 Ml Vial SUBCUT Not Given QIDACHS [facility] Protocol Levothyroxine Sodium 125 mcg 10/01/20 06:00 10/05/20 05:42 Levothyroxine Sodium 125 Mcg Tablet PO 125 mcg DAILY@0600 [facility] Administration Morphine Sulfate 1 mg 09/30/20 19:42 10/04/20 11:00 Morphine Sulfate 4 Mg/Ml Cartridge IVPUSH 1 mg Q4H PRN Administration Pain, Severe (Pain Scale 7-10) Multivitamins/Minerals 1 tab 10/01/20 09:00 10/05/20 07:38 Multivitamin With Minerals Tablet PO 1 tab DAILY [facility] Administration Omeprazole 20 mg 10/01/20 06:30 10/05/20 05:42 Omeprazole 20 Mg Capsule.Dr PO 20 mg DAILY@0630 [facility] Administration Oxycodone HCl 5 mg 09/30/20 19:39 10/04/20 07:47 Oxycodone Hcl Immed Release 5 Mg Tablet PO 5 mg Q12H PRN Administration pain Pharmacy Consult 1 each 09/30/20 19:41 Consult Rx Vancomycin Dosing MISCELLANE DAILY PRN Consult order Prazosin HCl 5 mg 09/30/20 21:00 10/04/20 20:50 Prazosin Hcl 5 Mg Capsule PO 5 mg BEDTIME IDNESH Administration Protocol Sertraline HCl 25 mg 10/01/20 09:00 10/05/20 07:38 Sertraline Hcl 25 Mg Tablet PO 25 mg DAILY DINESH Administration Sodium Chloride 3 ml 10/01/20 00:00 10/05/20 07:37 0.9 % Sodium Chloride Flush 3 Ml Syringe IVFLUSH 3 ml QSHIFT DINESH Administration Temazepam 15 mg 09/30/20 20:02 Temazepam 15 Mg Capsule PO BEDTIME PRN Sleep Vitamin D 25 mcg 10/01/20 09:00 10/05/20 07:38 Cholecalciferol (Vitamin D3) 25 Mcg Tablet PO 25 mcg DAILY DINESH Administration Time Spent With Patient Time: Total time spent is greater than 50% in coordination of care (as documented) at patient's floor/unit and/or counseling patient: Time with patient: 15 - 24 minutes
[2020-10-05] MEDS: Lidocaine HCl 1 % MPF 5 ML VIAL 10 ML SUBCUT (14:12)
--- NOTE | 2020-10-05 14:25 | HO.PM.IMPN ---
Subjective Subjective Date of Service: 10/04/20 Interval History: Patient seen and examined at bedside Patient was reporting abdominal pain improving Constitutional Constitutional: Reports body ache(s), Reports fatigue, Reports poor appetite and Reports weakness Eyes Eyes: Denies blurry vision, Denies dry eyes and Denies itchy eyes ENT Ears, Nose, Mouth, and Throat: Denies dysphagia, Denies vertigo, Denies dizziness, Reports hearing loss and Reports disequilibrium Cardiovascular Cardiovascular: Denies Epigastric Pain, Denies epigastric discomfort, Denies diaphoresis, Denies leg edema, Denies lightheadedness, Denies Loss of Consciousness and Denies dyspnea Respiratory Respiratory: Denies cough, Denies excessive phlegm production and Denies dyspnea Gastrointestinal Gastrointestinal: Reports abdominal pain (Right flank right upper quadrant), Denies melena, Denies hematochezia, Denies change in bowel habits, Denies constipation and Denies dysphagia Musculoskeletal Musculoskeletal: Reports abnormal gait, Reports back pain and Reports arthralgias Neurologic Neurologic: Reports abnormal gait, Reports confusion, Denies vertigo, Denies dizziness, Reports Sensory deficit (Neuro), Reports paresthesias, Reports disequilibrium and Reports weakness Psychiatric Psychiatric: Denies anxiety, Reports confusion and Denies depression Endocrine Endocrine: Reports fatigue Allergic/Immunologic Allergic/Immunologic: Denies itchy eyes Physical Exam Vital Signs: Vital Signs: Last Vital Signs Temp 98 F 10/05/20 11:26 Pulse 80 10/05/20 11:26 Resp 18 10/05/20 11:26 BP 137/76 10/05/20 11:26 Pulse Ox 98 10/05/20 11:26 Body Mass Index 24.0 Const: Other: . General: cooperative, comfortable and confusion; No acute distress or in distress Nutritional Appearance: average body habitus and other (Frail, elderly) Orientation/consciousness: oriented to person, oriented to time and confusion HENMT: Head: Yes normal to inspection Ears: hearing grossly normal bilaterally Mouth: Normal oral and palatal mucosa present Eyes: General: appearance normal, both eyes and all related structures Visual Dennison: normal visual dennison by confrontation Sclerae: sclerae normal EOM: EOMs intact bilaterally Neck: Neck: Yes normal visual inspection, Yes no lymphadenopathy, Yes trachea midline, No positive Brudzinski's sign, No positive Kernig's sign and No tender Thyroid: Thyroid normal Chest: Chest palpation & inspection: normal inspection of the chest Resp: Effort & Inspection: normal respiratory effort, no audible wheezes and no cough Auscultation: clear to auscultation bilaterally Cardio: Other: . Jugular venous distension: no JVD Rhythm: abnormal rhythm irregularly irregular GI: Inspection: Yes normal to inspection Palpation (GI): Soft to palpation, Tenderness to palpation present (GI) (Mild tenderness to deep palpation right upper quadrant laterally), No hepatosplenomegaly present, no hernias and no masses Percussion: Yes normal to percussion Auscultation: normal bowel sounds : General: Yes no CVA tenderness Back/Spine/Pelvis: Back: no CVA tenderness Skin: General skin exam: no rashes or lesions noted Neuro: General: oriented to person, oriented to time and confusion Sensory Exam: Sensory deficit (Neuro) Extrem: General: Yes normal to inspection, Yes no clubbing, cyanosis or edema and Yes no calf tenderness Objective Data Current Medications Generic Name Dose Route Start Last Admin Trade Name Freq PRN Reason Stop Dose Admin Acetaminophen 650 mg 09/30/20 19:42 10/05/20 07:37 Acetaminophen 325 Mg Tablet PO 650 mg Q6H PRN Administration Pain, Mild (Pain Scale 1-3) Amlodipine Besylate 10 mg 10/01/20 09:00 10/05/20 07:38 Amlodipine Besylate 10 Mg Tablet PO 10 mg DAILY DINESH Administration Protocol Atorvastatin Calcium 40 mg 09/30/20 21:00 10/04/20 20:50 Atorvastatin Calcium 40 Mg Tablet PO 40 mg BEDTIME DINESH Administration Dronedarone 400 mg 09/30/20 21:00 10/05/20 07:38 Dronedarone Hcl 400 Mg Tablet PO 400 mg BID DINESH Administration Gabapentin 300 mg 09/30/20 21:00 10/04/20 20:51 Gabapentin 300 Mg Capsule PO 300 mg BEDTIME DINESH Administration Piperacillin Sod/Tazobactam 50 mls @ 100 mls/hr 10/01/20 01:00 10/05/20 09:20 Sod 2.25 gm/ Sodium Chloride IV Infused Q6H DINESH Infusion Lactated Ringer's 1,000 mls @ 125 mls/hr 10/02/20 15:00 10/05/20 03:44 Lr IVCONT 125 mls/hr .Q8H DINESH Administration Insulin Human Lispro 0 unit 09/30/20 21:00 10/05/20 12:09 Insulin Lispro 100 Unit/Ml 3 Ml Vial SUBCUT Not Given QIDACHS [facility] Protocol Levothyroxine Sodium 125 mcg 10/01/20 06:00 10/05/20 05:42 Levothyroxine Sodium 125 Mcg Tablet PO 125 mcg DAILY@0600 DINESH Administration Morphine Sulfate 1 mg 09/30/20 19:42 10/04/20 11:00 Morphine Sulfate 4 Mg/Ml Cartridge IVPUSH 1 mg Q4H PRN Administration Pain, Severe (Pain Scale 7-10) Multivitamins/Minerals 1 tab 10/01/20 09:00 10/05/20 07:38 Multivitamin With Minerals Tablet PO 1 tab DAILY [facility] Administration Omeprazole 20 mg 10/01/20 06:30 10/05/20 05:42 Omeprazole 20 Mg Capsule. PO 20 mg DAILY@0630 [facility] Administration Oxycodone HCl 5 mg 09/30/20 19:39 10/04/20 07:47 Oxycodone Hcl Immed Release 5 Mg Tablet PO 5 mg Q12H PRN Administration pain Pharmacy Consult 1 each 09/30/20 19:41 Consult Rx Vancomycin Dosing MISCELLANE DAILY PRN Consult order Prazosin HCl 5 mg 09/30/20 21:00 10/04/20 20:50 Prazosin Hcl 5 Mg Capsule PO 5 mg BEDTIME [facility] Administration Protocol Sertraline HCl 25 mg 10/01/20 09:00 10/05/20 07:38 Sertraline Hcl 25 Mg Tablet PO 25 mg DAILY DINESH Administration Sodium Chloride 3 ml 10/01/20 00:00 10/05/20 07:37 0.9 % Sodium Chloride Flush 3 Ml Syringe IVFLUSH 3 ml QSHIFT [facility] Administration Temazepam 15 mg 09/30/20 20:02 Temazepam 15 Mg Capsule PO BEDTIME PRN Sleep Vitamin D 25 mcg 10/01/20 09:00 10/05/20 07:38 Cholecalciferol (Vitamin D3) 25 Mcg Tablet PO 25 mcg DAILY [facility] Administration Labs CBC & Chem 7: 10/05/20 05:18 10/05/20 05:18 Microbiology Microbiology Results: Microbiology 09/30/20 16:02 Blood - Venous Blood Culture - Preliminary No growth after 48 hours. 09/30/20 16:03 Blood - Venous Blood Culture - Preliminary No growth after 48 hours. Assessment and Plan (1) Acute cholecystitis: Status: Acute Assessment and Plan: 74-year-old female with a past medical history of hypertension, hyperlipidemia, diabetes, CVA with residual left-sided weakness, AFib on Eliquis, hypothyroidism, osteoporosis, chronic kidney disease presented with right-sided abdominal pain noted to have acute cholecystitis. Admitted to the hospital for further management. Sepsis present on admission secondary to Acute cholecystitis improving Abdominal pain resolving Continue IV Zosyn cultures preliminary negative Seen by surgery reconciled given multiple medical problem patient is not a candidate for surgery and as patient's symptoms improving and white count normal recommended holding percutaneous cholecystotomy Surgery following Will advance diet as tolerated Acute kidney injury on chronic kidney injury: Likely prerenal. improving Creatinine trending down Hold nephrotoxins. Nephrology following Hold losartan and Aldactone Mildly elevated troponin with flat trend likely demand mediated from sepsis and cholecystitis No chest pain ACS less likely AFib with RVR improving Continue Lopressor Eliquis on hold for possible percutaneous cholecystotomy Diabetes: Hold metformin. Continue Insulin sliding scale. Hypertension: Continue amlodipine, metoprolol. Losartan on hold for acute kidney injury Pneumonia: CT scan showed bibasilar pneumonia. COVID-19 negative. improving Continue supportive management On Zosyn Hypothyroidism: Continue home levothyroxine History of CVA: Chronic. CT head on presentation showed no acute findings. DVT prophylaxis: SCD boots. Full code
--- NOTE | 2020-10-05 14:26 | HO.PM.IMPN ---
Subjective Subjective Date of Service: 10/05/20 Interval History: Patient seen and examined at bedside Patient was reporting abdominal pain today patient spiked fever last night Constitutional Constitutional: Reports body ache(s), Reports fatigue, Reports poor appetite and Reports weakness Eyes Eyes: Denies blurry vision, Denies dry eyes and Denies itchy eyes ENT Ears, Nose, Mouth, and Throat: Denies dysphagia, Denies vertigo, Denies dizziness, Reports hearing loss and Reports disequilibrium Cardiovascular Cardiovascular: Denies Epigastric Pain, Denies epigastric discomfort, Denies diaphoresis, Denies leg edema, Denies lightheadedness, Denies Loss of Consciousness and Denies dyspnea Respiratory Respiratory: Denies cough, Denies excessive phlegm production and Denies dyspnea Gastrointestinal Gastrointestinal: Reports abdominal pain (Right flank right upper quadrant), Denies melena, Denies hematochezia, Denies change in bowel habits, Denies constipation and Denies dysphagia Musculoskeletal Musculoskeletal: Reports abnormal gait, Reports back pain and Reports arthralgias Neurologic Neurologic: Reports abnormal gait, Reports confusion, Denies vertigo, Denies dizziness, Reports Sensory deficit (Neuro), Reports paresthesias, Reports disequilibrium and Reports weakness Psychiatric Psychiatric: Denies anxiety, Reports confusion and Denies depression Endocrine Endocrine: Reports fatigue Allergic/Immunologic Allergic/Immunologic: Denies itchy eyes Physical Exam Vital Signs: Vital Signs: Last Vital Signs Temp 98 F 10/05/20 11:26 Pulse 80 10/05/20 11:26 Resp 18 10/05/20 11:26 BP 137/76 10/05/20 11:26 Pulse Ox 98 10/05/20 11:26 Body Mass Index 24.0 Const: Other: . General: cooperative, comfortable and confusion; No acute distress or in distress Nutritional Appearance: average body habitus and other (Frail, elderly) Orientation/consciousness: oriented to person, oriented to time and confusion HENMT: Head: Yes normal to inspection Ears: hearing grossly normal bilaterally Mouth: Normal oral and palatal mucosa present Eyes: General: appearance normal, both eyes and all related structures Visual Dennison: normal visual dennison by confrontation Sclerae: sclerae normal EOM: EOMs intact bilaterally Neck: Neck: Yes normal visual inspection, Yes no lymphadenopathy, Yes trachea midline, No positive Brudzinski's sign, No positive Kernig's sign and No tender Thyroid: Thyroid normal Chest: Chest palpation & inspection: normal inspection of the chest Resp: Effort & Inspection: normal respiratory effort, no audible wheezes and no cough Auscultation: clear to auscultation bilaterally Cardio: Other: . Jugular venous distension: no JVD Rhythm: abnormal rhythm irregularly irregular GI: Inspection: Yes normal to inspection Palpation (GI): Soft to palpation, Tenderness to palpation present (GI) (Mild tenderness to deep palpation right upper quadrant laterally), No hepatosplenomegaly present, no hernias and no masses Percussion: Yes normal to percussion Auscultation: normal bowel sounds : General: Yes no CVA tenderness Back/Spine/Pelvis: Back: no CVA tenderness Skin: General skin exam: no rashes or lesions noted Neuro: General: oriented to person, oriented to time and confusion Sensory Exam: Sensory deficit (Neuro) Extrem: General: Yes normal to inspection, Yes no clubbing, cyanosis or edema and Yes no calf tenderness Objective Data Current Medications Generic Name Dose Route Start Last Admin Trade Name Freq PRN Reason Stop Dose Admin Acetaminophen 650 mg 09/30/20 19:42 10/05/20 07:37 Acetaminophen 325 Mg Tablet PO 650 mg Q6H PRN Administration Pain, Mild (Pain Scale 1-3) Amlodipine Besylate 10 mg 10/01/20 09:00 10/05/20 07:38 Amlodipine Besylate 10 Mg Tablet PO 10 mg DAILY DINESH Administration Protocol Atorvastatin Calcium 40 mg 09/30/20 21:00 10/04/20 20:50 Atorvastatin Calcium 40 Mg Tablet PO 40 mg BEDTIME DINESH Administration Dronedarone 400 mg 09/30/20 21:00 10/05/20 07:38 Dronedarone Hcl 400 Mg Tablet PO 400 mg BID DINESH Administration Gabapentin 300 mg 09/30/20 21:00 10/04/20 20:51 Gabapentin 300 Mg Capsule PO 300 mg BEDTIME DINESH Administration Piperacillin Sod/Tazobactam 50 mls @ 100 mls/hr 10/01/20 01:00 10/05/20 09:20 Sod 2.25 gm/ Sodium Chloride IV Infused Q6H DINESH Infusion Lactated Ringer's 1,000 mls @ 125 mls/hr 10/02/20 15:00 10/05/20 03:44 Lr IVCONT 125 mls/hr .Q8H DINESH Administration Insulin Human Lispro 0 unit 09/30/20 21:00 10/05/20 12:09 Insulin Lispro 100 Unit/Ml 3 Ml Vial SUBCUT Not Given QIDACHS [facility] Protocol Levothyroxine Sodium 125 mcg 10/01/20 06:00 10/05/20 05:42 Levothyroxine Sodium 125 Mcg Tablet PO 125 mcg DAILY@0600 DINESH Administration Morphine Sulfate 1 mg 09/30/20 19:42 10/04/20 11:00 Morphine Sulfate 4 Mg/Ml Cartridge IVPUSH 1 mg Q4H PRN Administration Pain, Severe (Pain Scale 7-10) Multivitamins/Minerals 1 tab 10/01/20 09:00 10/05/20 07:38 Multivitamin With Minerals Tablet PO 1 tab DAILY [facility] Administration Omeprazole 20 mg 10/01/20 06:30 10/05/20 05:42 Omeprazole 20 Mg Capsule. PO 20 mg DAILY@0630 [facility] Administration Oxycodone HCl 5 mg 09/30/20 19:39 10/04/20 07:47 Oxycodone Hcl Immed Release 5 Mg Tablet PO 5 mg Q12H PRN Administration pain Pharmacy Consult 1 each 09/30/20 19:41 Consult Rx Vancomycin Dosing MISCELLANE DAILY PRN Consult order Prazosin HCl 5 mg 09/30/20 21:00 10/04/20 20:50 Prazosin Hcl 5 Mg Capsule PO 5 mg BEDTIME [facility] Administration Protocol Sertraline HCl 25 mg 10/01/20 09:00 10/05/20 07:38 Sertraline Hcl 25 Mg Tablet PO 25 mg DAILY [facility] Administration Sodium Chloride 3 ml 10/01/20 00:00 10/05/20 07:37 0.9 % Sodium Chloride Flush 3 Ml Syringe IVFLUSH 3 ml QSHIFT [facility] Administration Temazepam 15 mg 09/30/20 20:02 Temazepam 15 Mg Capsule PO BEDTIME PRN Sleep Vitamin D 25 mcg 10/01/20 09:00 10/05/20 07:38 Cholecalciferol (Vitamin D3) 25 Mcg Tablet PO 25 mcg DAILY [facility] Administration Labs CBC & Chem 7: 10/05/20 05:18 10/05/20 05:18 Microbiology Microbiology Results: Microbiology 09/30/20 16:02 Blood - Venous Blood Culture - Preliminary No growth after 48 hours. 09/30/20 16:03 Blood - Venous Blood Culture - Preliminary No growth after 48 hours. Assessment and Plan (1) Acute cholecystitis: Status: Acute Assessment and Plan: 74-year-old female with a past medical history of hypertension, hyperlipidemia, diabetes, CVA with residual left-sided weakness, AFib on Eliquis, hypothyroidism, osteoporosis, chronic kidney disease presented with right-sided abdominal pain noted to have acute cholecystitis. Admitted to the hospital for further management. Sepsis present on admission secondary to Acute cholecystitis reporting abdominal pain today spiked fever last night Continue IV Zosyn cultures preliminary negative Seen by surgery reconciled given multiple medical problem patient is not a candidate for surgery given patient reporting pain now and spiked fever Will repeat CT scan of abdomen if cholecystitis worsening plan to put cholecystotomy tube surgery following Acute kidney injury on chronic kidney injury: Likely prerenal. improving Creatinine trending down Hold nephrotoxins. Nephrology following Hold losartan and Aldactone Mildly elevated troponin with flat trend likely demand mediated from sepsis and cholecystitis No chest pain ACS less likely AFib with RVR improving Continue Lopressor Eliquis on hold for possible percutaneous cholecystotomy Diabetes: Hold metformin. Continue Insulin sliding scale. Hypertension: Continue amlodipine, metoprolol. Losartan on hold for acute kidney injury Pneumonia: CT scan showed bibasilar pneumonia. COVID-19 negative. improving Continue supportive management On Zosyn Hypothyroidism: Continue home levothyroxine History of CVA: Chronic. CT head on presentation showed no acute findings. DVT prophylaxis: SCD boots. Full code
[2020-10-05 16:10] LABS: Glucose, Whole Blood 109 mg/dL (60-115)
[2020-10-05 19:35] LABS: Glucose, Whole Blood 128 mg/dL (60-115)
[2020-10-05] MEDS: Gabapentin 300 MG CAPSULE PO (21:11)
[2020-10-05] MEDS: Prazosin HCL 5 MG CAPSULE PO (21:11)
[2020-10-05] MEDS: Atorvastatin Calcium 40 MG TABLET PO (21:11)
--- NOTE | 2020-10-05 21:41 | PC.NURSE ---
cholecystectomy drain flushed at 21:00 with 2 ml sterile saline
[2020-10-06] VITALS (9 sets, daily range): BP systolic 155–186; BP diastolic 52–82; PULSE 73–86; RESP 15–20; TEMP 36–37.6; O2SAT 93–96
[2020-10-06] MEDS: Piperacillin Sodium/Tazobactam 2.25 GM in 0.9 % Sodium Chloride 50 ML IV ×4 (00:03→20:52)
[2020-10-06] MEDS: 0.9 % Sodium Chloride Flush 3 ML SYRINGE IVFLUSH ×3 (00:04→13:14)
[2020-10-06] MEDS: Omeprazole 20 MG CAPSULE.DR PO (05:50)
[2020-10-06] MEDS: Levothyroxine Sodium 125 MCG TABLET PO (05:50)
[2020-10-06 07:34] LABS: Glucose, Whole Blood 101 mg/dL (60-115)
[2020-10-06] MEDS: amLODIPine Besylate 10 MG TABLET PO (09:22)
[2020-10-06] MEDS: Sertraline HCL 25 MG TABLET PO (09:22)
[2020-10-06] MEDS: Cholecalciferol (Vitamin D3) 25 MCG TABLET PO (09:22)
[2020-10-06] MEDS: Dronedarone HCl 400 MG TABLET PO ×2 (09:23→20:52)
[2020-10-06 11:32] LABS: Glucose, Whole Blood 121 mg/dL (60-115)
--- NOTE | 2020-10-06 12:49 | MHC.CM.PN ---
Patient is on IV Zosyn for Choleycystitis/PNA, temp today 99.6. Diet advanced to full liquids. Patient is wheel chair bound at baseline and lives with her sister. Discharge disposition is pending PT eval and ability to care for choley drain. CM will continue to follow for discharge needs.
--- NOTE | 2020-10-06 12:50 | P.PNIM_ITS ---
Subjective Subjective Date of Service: 10/06/20 Interval History: Patient seen and examined at bedside Patient was reporting abdominal pain resolving denies any nausea vomiting Constitutional Constitutional: Reports body ache(s), Reports fatigue, Reports poor appetite and Reports weakness Eyes Eyes: Denies blurry vision, Denies dry eyes and Denies itchy eyes ENT Ears, Nose, Mouth, and Throat: Denies dysphagia, Denies vertigo, Denies dizziness, Reports hearing loss and Reports disequilibrium Cardiovascular Cardiovascular: Denies Epigastric Pain, Denies epigastric discomfort, Denies diaphoresis, Denies leg edema, Denies lightheadedness, Denies Loss of Consciousness and Denies dyspnea Respiratory Respiratory: Denies cough, Denies excessive phlegm production and Denies dyspnea Gastrointestinal Gastrointestinal: Reports abdominal pain (Right flank right upper quadrant), Denies melena, Denies hematochezia, Denies change in bowel habits, Denies constipation and Denies dysphagia Musculoskeletal Musculoskeletal: Reports abnormal gait, Reports back pain and Reports arthralgias Neurologic Neurologic: Reports abnormal gait, Reports confusion, Denies vertigo, Denies dizziness, Reports Sensory deficit (Neuro), Reports paresthesias, Reports disequilibrium and Reports weakness Psychiatric Psychiatric: Denies anxiety, Reports confusion and Denies depression Endocrine Endocrine: Reports fatigue Allergic/Immunologic Allergic/Immunologic: Denies itchy eyes Physical Exam Vital Signs: Vital Signs: Last Vital Signs Temp 97.7 F 10/06/20 11:49 Pulse 79 10/06/20 11:49 Resp 20 10/06/20 11:49 BP 155/69 H 10/06/20 11:49 Pulse Ox 95 10/06/20 11:49 Body Mass Index 24.0 Const: Other: . General: cooperative, comfortable and confusion; No acute distress or in distress Nutritional Appearance: average body habitus and other (Frail, elderly) Orientation/consciousness: oriented to person, oriented to time and confusion HENMT: Head: Yes normal to inspection Ears: hearing grossly normal bilaterally Mouth: Normal oral and palatal mucosa present Eyes: General: appearance normal, both eyes and all related structures Visual Dennison: normal visual dennison by confrontation Sclerae: sclerae normal EOM: EOMs intact bilaterally Neck: Neck: Yes normal visual inspection, Yes no lymphadenopathy, Yes trachea midline, No positive Brudzinski's sign, No positive Kernig's sign and No tender Thyroid: Thyroid normal Chest: Chest palpation & inspection: normal inspection of the chest Resp: Effort & Inspection: normal respiratory effort, no audible wheezes and no cough Auscultation: clear to auscultation bilaterally Cardio: Other: . Jugular venous distension: no JVD Rhythm: abnormal rhythm irregularly irregular GI: Inspection: Yes normal to inspection Palpation (GI): Soft to palpation, Tenderness to palpation present (GI) (Mild tenderness to deep palpation right upper quadrant laterally), No hepatosplenomegaly present, no hernias, no masses and Other GI palpation findings present ( cholecystotomy drain in place) Percussion: Yes normal to percussion Auscultation: normal bowel sounds : General: Yes no CVA tenderness Back/Spine/Pelvis: Back: no CVA tenderness Skin: General skin exam: no rashes or lesions noted Neuro: General: oriented to person, oriented to time and confusion Sensory Exam: Sensory deficit (Neuro) Extrem: General: Yes normal to inspection, Yes no clubbing, cyanosis or edema and Yes no calf tenderness Objective Data Current Medications Generic Name Dose Route Start Last Admin Trade Name Freq PRN Reason Stop Dose Admin Acetaminophen 650 mg 09/30/20 19:42 10/05/20 07:37 Acetaminophen 325 Mg Tablet PO 650 mg Q6H PRN Administration Pain, Mild (Pain Scale 1-3) Amlodipine Besylate 10 mg 10/01/20 09:00 10/06/20 09:22 Amlodipine Besylate 10 Mg Tablet PO 10 mg DAILY DINESH Administration Protocol Atorvastatin Calcium 40 mg 09/30/20 21:00 10/05/20 21:11 Atorvastatin Calcium 40 Mg Tablet PO 40 mg BEDTIME DINESH Administration Dronedarone 400 mg 09/30/20 21:00 10/06/20 09:23 Dronedarone Hcl 400 Mg Tablet PO 400 mg BID DINESH Administration Gabapentin 300 mg 09/30/20 21:00 10/05/20 21:11 Gabapentin 300 Mg Capsule PO 300 mg BEDTIME DINESH Administration Piperacillin Sod/Tazobactam 50 mls @ 100 mls/hr 10/01/20 01:00 10/06/20 07:14 Sod 2.25 gm/ Sodium Chloride IV Infused Q6H DINESH Infusion Insulin Human Lispro 0 unit 09/30/20 21:00 10/06/20 11:40 Insulin Lispro 100 Unit/Ml 3 Ml Vial SUBCUT Not Given QIDACHS [facility] Protocol Levothyroxine Sodium 125 mcg 10/01/20 06:00 10/06/20 05:50 Levothyroxine Sodium 125 Mcg Tablet PO 125 mcg DAILY@0600 [facility] Administration Multivitamins/Minerals 1 tab 10/01/20 09:00 10/06/20 09:22 Multivitamin With Minerals Tablet PO 1 tab DAILY DINESH Administration Omeprazole 20 mg 10/01/20 06:30 10/06/20 05:50 Omeprazole 20 Mg Capsule.Dr PO 20 mg DAILY@0630 [facility] Administration Pharmacy Consult 1 each 09/30/20 19:41 Consult Rx Vancomycin Dosing MISCELLANE DAILY PRN Consult order Prazosin HCl 5 mg 09/30/20 21:00 10/05/20 21:11 Prazosin Hcl 5 Mg Capsule PO 5 mg BEDTIME [facility] Administration Protocol Sertraline HCl 25 mg 10/01/20 09:00 10/06/20 09:22 Sertraline Hcl 25 Mg Tablet PO 25 mg DAILY DINESH Administration Sodium Chloride 3 ml 10/01/20 00:00 10/06/20 09:23 0.9 % Sodium Chloride Flush 3 Ml Syringe IVFLUSH 3 ml QSHIFT [facility] Administration Vitamin D 25 mcg 10/01/20 09:00 10/06/20 09:22 Cholecalciferol (Vitamin D3) 25 Mcg Tablet PO 25 mcg DAILY [facility] Administration Labs CBC & Chem 7: 10/05/20 05:18 10/05/20 05:18 Microbiology Microbiology Results: Microbiology 09/30/20 16:02 Blood - Venous Blood Culture - Final No growth after 5 days. 09/30/20 16:03 Blood - Venous Blood Culture - Final No growth after 5 days. Assessment and Plan (1) Acute cholecystitis: Status: Acute Assessment and Plan: 74-year-old female with a past medical history of hypertension, hyperlipidemia, diabetes, CVA with residual left-sided weakness, AFib on Eliquis, hypothyroidism, osteoporosis, chronic kidney disease presented with right-sided abdominal pain noted to have acute cholecystitis. Admitted to the hospital for further management. Sepsis present on admission secondary to Acute cholecystitis resolving status post cholecystotomy on 10/05/2020 Continue IV Zosyn cultures preliminary negative Seen by surgery reconciled given multiple medical problem patient is not a candidate for surgery surgery following Will advance diet as tolerated Acute kidney injury on chronic kidney injury: Likely prerenal. resolving Creatinine trending down Hold nephrotoxins. Nephrology following Hold losartan and Aldactone Mildly elevated troponin with flat trend likely demand mediated from sepsis and cholecystitis No chest pain ACS less likely AFib with RVR improving Continue Lopressor Eliquis on hold for percutaneous cholecystotomy will consider resuming tomorrow Diabetes: Hold metformin. Continue Insulin sliding scale. Hypertension: Continue amlodipine, metoprolol. Losartan on hold for acute kidney injury Pneumonia: CT scan showed bibasilar pneumonia. COVID-19 negative. improving Continue supportive management On Zosyn Hypothyroidism: Continue home levothyroxine History of CVA: Chronic. CT head on presentation showed no acute findings. DVT prophylaxis: SCD boots. Full code likely discharge in 1-2 days if continues to tolerate diet debility weakness will get PT evaluation
--- NOTE | 2020-10-06 14:40 | MHC.CM.PN ---
CM met with patient at the bedside with a branch banker to discuss discharge plan since PT is recommending [facility]. Patient is refusing rehab stating she lives with her sister and family who can provide 24/7 care. Instructed CM can refer to [facility] to help with choley drain and teach patient family care. Can also order PT in the home. Patient is agreeable and is requesting [facility]. CM spoke with Terra at [facility], [place] to refer to [facility] for nursing only. [facility] will provide PT. Referral made to [facility] via [employer]. CM will continue to follow for discharge needs.
[2020-10-06 16:18] LABS: Glucose, Whole Blood 146 mg/dL (60-115)
[2020-10-06 20:26] LABS: Glucose, Whole Blood 136 mg/dL (60-115)
[2020-10-06] MEDS: Gabapentin 300 MG CAPSULE PO (20:52)
[2020-10-06] MEDS: Prazosin HCL 5 MG CAPSULE PO (20:52)
[2020-10-06] MEDS: Atorvastatin Calcium 40 MG TABLET PO (20:52)
[2020-10-07] VITALS (8 sets, daily range): BP systolic 150–164; BP diastolic 60–73; PULSE 57–117; RESP 16–21; TEMP 35.7–37.2; O2SAT 94–97
[2020-10-07] MEDS: Piperacillin Sodium/Tazobactam 2.25 GM in 0.9 % Sodium Chloride 50 ML IV ×4 (00:26→20:12)
[2020-10-07] MEDS: 0.9 % Sodium Chloride Flush 3 ML SYRINGE IVFLUSH ×3 (00:26→15:29)
[2020-10-07] MEDS: Levothyroxine Sodium 125 MCG TABLET PO (05:49)
[2020-10-07] MEDS: Omeprazole 20 MG CAPSULE.DR PO (05:49)
[2020-10-07 06:25] LABS: Basophils Percent Auto 0.2 % (0-2); Eosinophils Absolute Auto 0.2 X10*3/uL (0.0-0.4); Eosinophils Percent Auto 3.1 % (0-4); Hematocrit 32.7 % (37-47); Hemoglobin 11.1 g/dl (12.0-16.0); Imm Gran Abs Auto 0.04 X10*3/uL (0.00-0.03); Imm Gran Pct Auto 0.8 % (0.0-0.4); Lymphocytes Absolute Auto 1.2 X10*3/uL (1.2-4.9); Lymphocytes Percent Auto 24.8 % (20-40); MANUAL DIFF FLAG SCAN; Mean Corpuscular HGB Conc 33.9 g/dl (31.0-35.0); Mean Corpuscular Hemoglobin 28.8 pg (27.0-33.0); Mean Corpuscular Volume 84.9 fL (80-98); Mean Platelet Volume 11.8 fL (9.4-12.3); Monocytes Absolute Auto 0.3 X10*3/uL (0.1-1.2); Monocytes Percent Auto 5.7 % (2-11); Neutrophils Absolute Auto 3.2 X10*3/uL (2.0-8.3); Neutrophils Percent Auto 65.4 % (45-73); Platelet Count 170 X10*3/uL (160-400); Red Blood Count 3.85 X10*6/uL (4.20-5.50); Red Cell Distribution Width 11.9 % (11.0-16.0); SCAN SMEAR FLAG 1; White Blood Count 4.9 X10*3/uL (4.8-10.8)
[2020-10-07 06:53] LABS: Anion Gap 9 (12-20); Blood Urea Nitrogen 10 mg/dL (9-16); Carbon Dioxide 26 mmol/L (22-29); Chloride 109 mmol/L (96-108); Creatinine Clr Calc Pharmacy 38.7; Estimated Glomerular Filt Rate 53; Glucose Random 116 mg/dL (60-115); Potassium 3.4 mmol/L (3.3-5.1); Sodium 141 mmol/L (135-145)
[2020-10-07 07:24] LABS: SLIDE REVIEW VERIFIED
[2020-10-07 07:34] LABS: Glucose, Whole Blood 112 mg/dL (60-115)
[2020-10-07] MEDS: Cholecalciferol (Vitamin D3) 25 MCG TABLET PO (09:18)
[2020-10-07] MEDS: Sertraline HCL 25 MG TABLET PO (09:18)
[2020-10-07] MEDS: Dronedarone HCl 400 MG TABLET PO ×2 (09:19→20:11)
[2020-10-07] MEDS: amLODIPine Besylate 10 MG TABLET PO (09:19)
[2020-10-07 11:23] LABS: Glucose, Whole Blood 139 mg/dL (60-115)
--- NOTE | 2020-10-07 12:59 | P.PNIM_ITS ---
Subjective Subjective Date of Service: 10/07/20 Interval History: History obtained via credit risk analytics manager, Patient offers no acute complaints of abdominal pain, no nausea no vomiting tolerating diet. No issues overnight [employer] no headache, no dizziness CVS no chest pain, no palpitation GI no nausea, no vomiting Physical Exam Vital Signs: Vital Signs: Last Vital Signs Temp 98.3 F 10/07/20 11:23 Pulse 79 10/07/20 11:23 Resp 19 10/07/20 11:23 BP 150/60 H 10/07/20 11:23 Pulse Ox 94 10/07/20 11:23 Body Mass Index 24.0 Resting comfortably in no acute distress Neck is supple no JVD Lungs clear to auscultation bilateral Cardiovascular regular rate rhythm Abdomen soft nontender cholecystostomy tube with serous drainage Extremities no clubbing cyanosis or edema Skin no rash Objective Data Current Medications Generic Name Dose Route Start Last Admin Trade Name Freq PRN Reason Stop Dose Admin Acetaminophen 650 mg 09/30/20 19:42 10/05/20 07:37 Acetaminophen 325 Mg Tablet PO 650 mg Q6H PRN Administration Pain, Mild (Pain Scale 1-3) Amlodipine Besylate 10 mg 10/01/20 09:00 10/07/20 09:19 Amlodipine Besylate 10 Mg Tablet PO 10 mg DAILY DINESH Administration Protocol Atorvastatin Calcium 40 mg 09/30/20 21:00 10/06/20 20:52 Atorvastatin Calcium 40 Mg Tablet PO 40 mg BEDTIME DINESH Administration Dronedarone 400 mg 09/30/20 21:00 10/07/20 09:19 Dronedarone Hcl 400 Mg Tablet PO 400 mg BID DINESH Administration Gabapentin 300 mg 09/30/20 21:00 10/06/20 20:52 Gabapentin 300 Mg Capsule PO 300 mg BEDTIME DINESH Administration Piperacillin Sod/Tazobactam 50 mls @ 100 mls/hr 10/01/20 01:00 10/07/20 06:25 Sod 2.25 gm/ Sodium Chloride IV Infused Q6H DINESH Infusion Insulin Human Lispro 0 unit 09/30/20 21:00 10/07/20 12:51 Insulin Lispro 100 Unit/Ml 3 Ml Vial SUBCUT Not Given QIDACHS [facility] Protocol Levothyroxine Sodium 125 mcg 10/01/20 06:00 10/07/20 05:49 Levothyroxine Sodium 125 Mcg Tablet PO 125 mcg DAILY@0600 DINESH Administration Multivitamins/Minerals 1 tab 10/01/20 09:00 10/07/20 09:19 Multivitamin With Minerals Tablet PO 1 tab DAILY DINESH Administration Omeprazole 20 mg 10/01/20 06:30 10/07/20 05:49 Omeprazole 20 Mg Capsule. PO 20 mg DAILY@0630 [facility] Administration Pharmacy Consult 1 each 09/30/20 19:41 Consult Rx Vancomycin Dosing MISCELLANE DAILY PRN Consult order Prazosin HCl 5 mg 09/30/20 21:00 10/06/20 20:52 Prazosin Hcl 5 Mg Capsule PO 5 mg BEDTIME DINESH Administration Protocol Sertraline HCl 25 mg 10/01/20 09:00 10/07/20 09:18 Sertraline Hcl 25 Mg Tablet PO 25 mg DAILY DINESH Administration Sodium Chloride 3 ml 10/01/20 00:00 10/07/20 09:20 0.9 % Sodium Chloride Flush 3 Ml Syringe IVFLUSH 3 ml QSHIFT DINESH Administration Vitamin D 25 mcg 10/01/20 09:00 10/07/20 09:18 Cholecalciferol (Vitamin D3) 25 Mcg Tablet PO 25 mcg DAILY DINESH Administration Labs CBC & Chem 7: 10/07/20 05:29 10/07/20 05:29 Microbiology Microbiology Results: Microbiology 09/30/20 16:02 Blood - Venous Blood Culture - Final No growth after 5 days. 09/30/20 16:03 Blood - Venous Blood Culture - Final No growth after 5 days. Assessment and Plan (1) EMIGDIO (acute kidney injury): Problem details: resolving EMIGDIO no new suggestions Status: Acute (2) Acute cholecystitis: Status: Acute (3) Pneumonia: Status: Acute (4) Sepsis: Status: Acute (5) CVA (cerebral vascular accident): Status: Acute Assessment and Plan: 74-year-old female with a past medical history of hypertension, hyperlipidemia, diabetes, CVA with residual left-sided weakness, AFib on Eliquis, hypothyroidism, osteoporosis, chronic kidney disease presented with right-sided abdominal pain noted to have acute cholecystitis. Admitted to the hospital for further management. Sepsis present on admission secondary to Acute cholecystitis is status post cholecystotomy on 10/05/2020 currently on Zosyn day 01/06 Will switch to by mouth Augmentin upon discharge Blood cultures negative, will consult surgery regarding plan for outpatient follow-up and removal of cholecystostomy tube on full liquid diet will advance to regular diet. Acute kidney injury on chronic kidney injury: Resolved was likely Likely prerenal. Will resume losartan and Aldactone depending on blood pressure reading Mildly elevated troponin with flat trend likely demand mediated from sepsis and cholecystitis, continue metoprolol AFib with RVR improving ventricular rate improved will resume Lopressor and continue Multaq, will resume Eliquis Diabetes: Blood sugars stable, will resume metformin upon discharge, continue insulin sliding scale Hypertension: Noted to have elevated blood pressure on amlodipine, will resume metoprolol and gradually resume losartan Pneumonia: CT scan showed bibasilar pneumonia. COVID-19 negative. Patient denies shortness of breath or cough, continue IV Zosyn as above and supportive care Hypothyroidism: Continue levothyroxine History of CVA: CT head on presentation showed no acute findings. DVT prophylaxis: SCD boots and resume Eliquis. Full code
[2020-10-07 16:32] LABS: Glucose, Whole Blood 128 mg/dL (60-115)
--- NOTE | 2020-10-07 18:52 | PC.NURSE ---
? of possible d/c tomorrow morning, awaiting f/u via general surgery via right sided pig tail drain. Output of 50 mL. Patient and family updated, aware.
[2020-10-07 20:05] LABS: Glucose, Whole Blood 147 mg/dL (60-115)
[2020-10-07] MEDS: Prazosin HCL 5 MG CAPSULE PO (20:11)
[2020-10-07] MEDS: Atorvastatin Calcium 40 MG TABLET PO (20:11)
[2020-10-07] MEDS: Metoprolol Tartrate 100 MG TABLET PO (20:11)
[2020-10-07] MEDS: Gabapentin 300 MG CAPSULE PO (20:12)
[2020-10-07] MEDS: Apixaban 5 MG TABLET PO (20:13)
[2020-10-08] MEDS: 0.9 % Sodium Chloride Flush 3 ML SYRINGE IVFLUSH ×2 (00:38→08:41)
[2020-10-08] MEDS: Piperacillin Sodium/Tazobactam 2.25 GM in 0.9 % Sodium Chloride 50 ML IV (00:38)
[2020-10-08 03:50] VITALS: BP 129/63; PULSE 72; RESP 20; TEMP 36.6; O2SAT 96
[2020-10-08] MEDS: Omeprazole 20 MG CAPSULE.DR PO (05:35)
[2020-10-08] MEDS: Levothyroxine Sodium 125 MCG TABLET PO (05:35)
[2020-10-08 06:34] LABS: MANUAL DIFF FLAG NO
[2020-10-08 06:47] LABS: Basophils Percent Auto 0.3 % (0-2); Eosinophils Absolute Auto 0.2 X10*3/uL (0.0-0.4); Eosinophils Percent Auto 2.5 % (0-4); Hematocrit 34.8 % (37-47); Hemoglobin 11.9 g/dl (12.0-16.0); Imm Gran Abs Auto 0.03 X10*3/uL (0.00-0.03); Imm Gran Pct Auto 0.4 % (0.0-0.4); Lymphocytes Absolute Auto 1.4 X10*3/uL (1.2-4.9); Lymphocytes Percent Auto 18.5 % (20-40); Mean Corpuscular HGB Conc 34.2 g/dl (31.0-35.0); Mean Corpuscular Volume 84.7 fL (80-98); Mean Platelet Volume 11.3 fL (9.4-12.3); Monocytes Absolute Auto 0.3 X10*3/uL (0.1-1.2); Monocytes Percent Auto 4.3 % (2-11); Neutrophils Absolute Auto 5.6 X10*3/uL (2.0-8.3); Platelet Count 212 X10*3/uL (160-400); Red Blood Count 4.11 X10*6/uL (4.20-5.50); Red Cell Distribution Width 12.2 % (11.0-16.0); White Blood Count 7.5 X10*3/uL (4.8-10.8)
[2020-10-08 07:09] LABS: Anion Gap 12 (12-20); Blood Urea Nitrogen 10 mg/dL (9-16); Calcium 8.1 mg/dL (8.4-10.2); Carbon Dioxide 25 mmol/L (22-29); Chloride 108 mmol/L (96-108); Creatinine Clr Calc Pharmacy 35.9; Estimated Glomerular Filt Rate 48; Glucose Random 117 mg/dL (60-115); Potassium 3.7 mmol/L (3.3-5.1); Sodium 141 mmol/L (135-145)
[2020-10-08 07:29] LABS: Glucose, Whole Blood 118 mg/dL (60-115)
[2020-10-08 08:00] VITALS: BP 174/87; PULSE 63; RESP 20; TEMP 36.7; O2SAT 97
[2020-10-08 08:40] VITALS: BP 129/63; PULSE 72
[2020-10-08] MEDS: Apixaban 5 MG TABLET PO (08:40)
[2020-10-08] MEDS: Dronedarone HCl 400 MG TABLET PO (08:40)
[2020-10-08] MEDS: Cholecalciferol (Vitamin D3) 25 MCG TABLET PO (08:40)
[2020-10-08] MEDS: Sertraline HCL 25 MG TABLET PO (08:40)
[2020-10-08] MEDS: Metoprolol Tartrate 100 MG TABLET PO (08:40)
[2020-10-08] MEDS: amLODIPine Besylate 10 MG TABLET PO (08:40)
[2020-10-08] MEDS: Amoxicillin/Potassium Clav 875 MG TABLET PO (09:45)
[2020-10-08 11:41] LABS: Glucose, Whole Blood 146 mg/dL (60-115)
[2020-10-08 12:00] VITALS: BP 159/64; PULSE 63; RESP 20; TEMP 37; O2SAT 97
--- NOTE | 2020-10-08 14:56 | MHC.CM.PN ---
Patient has been medically cleared for dc to home today, with [facility]. A referral has been made to [facility], who has been made aware of today's dc. Second IMM addressed yesterday.
--- NOTE | 2020-10-08 15:06 | PM.DS ---
DS: Providers Provider Date of Service: 10/08/20 Date of admission: 09/30/20 19:42 Primary care physician: Vonda Fontaine MD Consults: 10/01/20 11:53 Consult to General Surgery Routine Consulting Provider: Liliane Mcqueen Reason for consultation: acute cholecystitis 10/02/20 10:18 Consult to Nephrology Routine Consulting Provider: Luis F Belcher Reason for consultation: EMIGDIO on ckd 10/05/20 07:43 Consult to General Surgery Routine Consulting Provider: Liliane Mcqueen Reason for consultation: cholecystitis spiking fever DS: Diagnosis Discharge Diagnosis (1) EMIGDIO (acute kidney injury): Status: Acute Problem details: resolving EMIGDIO no new suggestions (2) Acute cholecystitis: Status: Acute (3) Pneumonia: Status: Acute (4) Sepsis: Status: Acute (5) CVA (cerebral vascular accident): Status: Acute DS: Medications Discharge Medications Home Medications: Home Medications Medication Instructions Recorded Confirmed amlodipine 10 mg tablet 10 mg PO DAILY 06/07/20 09/30/20 atorvastatin 40 mg tablet 40 mg PO BEDTIME 06/07/20 09/30/20 dronedarone 400 mg tablet 400 mg PO BID 06/07/20 09/30/20 gabapentin 300 mg capsule 300 mg PO BEDTIME 06/07/20 09/30/20 metformin 500 mg tablet,extended 500 mg PO BEDTIME 06/07/20 09/30/20 release 24 hr metoprolol tartrate 50 mg tablet 100 mg PO BID 06/07/20 09/30/20 multivit with 1 tab PO QAM 06/07/20 09/30/20 egbiumot-nmbu-BX-lutein 8 mg iron-400 mcg-300 mcg tablet omeprazole 20 mg capsule,delayed 20 mg PO DAILY 06/07/20 09/30/20 release oxycodone 5 mg tablet 5 mg PO Q12H PRN 06/07/20 09/30/20 prazosin 5 mg capsule 5 mg PO BEDTIME 06/07/20 09/30/20 sertraline 25 mg tablet 25 mg PO QAM 06/07/20 09/30/20 spironolactone 25 mg tablet 25 mg PO DAILY 06/07/20 09/30/20 apixaban 5 mg tablet 5 mg PO BID 08/17/20 09/30/20 acetaminophen 1,000 mg PO Q8H PRN 09/30/20 09/30/20 calcium citrate 500 mg PO DAILY 09/30/20 09/30/20 levothyroxine 125 mcg PO QAM 09/30/20 09/30/20 temazepam 7.5 mg PO BEDTIME PRN 09/30/20 09/30/20 Previous Rx's Medication Instructions Recorded cholecalciferol (vitamin D3) 25 25 mcg PO DAILY 30 Days #30 cap 09/22/20 mcg (1,000 unit) capsule amoxicillin-pot clavulanate 875 mg PO Q12H #8 tab 10/08/20 losartan 50 mg PO DAILY #30 tab 10/08/20 DS: Summary Hospital Course Hospital Course: History of presenting illness Date of Service: 09/30/20 Chief Complaint: Right-sided abdominal pain 74-year-old female with a past medical history of hypertension, hyperlipidemia, diabetes, CVA with residual left-sided weakness, AFib on Eliquis, osteoporosis, hypothyroidism, vitamin-D deficiency, history of atrophic kidney, CKD presented to the hospital with a chief complaint of right-sided flank pain/abdominal pain the past few days. Patient is a poor historian, [place]-speaking. Most of the history obtained from the ER team and records. Reportedly patient has been having the right-sided abdominal pain for the past few days, associated with nausea and vomiting. Denies any chest pain lightheadedness. Denies any fever chills. Denies any cough. Denies any urinary symptoms. Denies any diarrhea. As symptoms were not improving and subsequently sent to the ER for further evaluation. Review of all other systems is negative except mentioned above ER course: Per ER team patient was initially appeared lethargic, CT head showed no acute findings. ER team mentioned that patient gradually regained her mental status back to her normal. ER team also spoke to her sister as well. Mention the patient is a full code. On investigations patient noted to have leukocytosis, EKG with AFib with mild RVR., CT chest/CT abdomen showed findings concerning for acute cholecystitis and possible bibasilar pneumonia. Right upper quadrant ultrasound showed gallstones and acute cholecystitis. Blood cultures were sent. Started on Zosyn. ER team spoke to General surgery Dr. Masterson who suggested admission to the medical service and possibly a plan for cholecystostomy tube in the morning. Patient troponins were indeterminate, EKG nonischemic likely demand in the setting of rapid ventricular response; ER team mentioned that troponins plateaued and discussed with Dr. Randle, who mentioned no acute intervention for now. Hospital course 74-year-old female with a past medical history of hypertension, hyperlipidemia, diabetes, CVA with residual left-sided weakness, AFib on Eliquis, hypothyroidism, osteoporosis, chronic kidney disease presented with right-sided abdominal pain noted to have acute cholecystitis. Admitted to the hospital for further management. Patient admitted to hospital with a diagnosis of sepsis secondary to Acute cholecystitis is status post cholecystotomy on 10/05/2020 patient initially treated with Zosyn now transition to by mouth Augmentin Blood cultures negative, patient will be discharged home with cholecystostomy tube , currently tolerating diabetic diet with no nausea, no vomiting or abdominal pain, patient has been instructed to follow-up with Dr. Lopez in next 7-10 days , patient is being discharged with [facility] service Acute kidney injury on chronic kidney disease stage III, patient was treated with fluids losartan and Aldactone was held since renal function is baseline will resume low-dose losartan and continue Aldactone . Mildly elevated troponin with flat trend likely demand mediated from sepsis and cholecystitis, no further work workup was warranted recommend to continue metoprolol. AFib with RVR ventricular rate improved continue Lopressor Multaq and Eliquis Pneumonia: CT scan showed bibasilar pneumonia. COVID-19 negative. Patient denies shortness of breath or cough, is on Augmentin that will cover respiratory pathogens as well. Hypothyroidism:Continue levothyroxine History of CVA: CT head on presentation showed no acute findings. Recommend to continue home medications for diabetes and hypertension, dose of losartan reduced from 100 mg to 50 mg to avoid hypotension. Time Spent with Patient Time attestation: Total time spent providing and/or coordinating discharge services: Discharge coordination time: Greater than 30 minutes Physical Exam Vital Signs: Vital Signs: Last Vital Signs Temp 98.6 F 10/08/20 12:00 Pulse 63 10/08/20 12:00 Resp 20 10/08/20 12:00 BP 159/64 H 10/08/20 12:00 Pulse Ox 97 10/08/20 12:00 Body Mass Index 24.0 Resting comfortably in no acute distress Neck is supple no JVD Lungs clear to auscultation bilateral Cardiovascular regular rate rhythm Abdomen soft nontender cholecystostomy tube with bilious drainage Extremities no edema Skin no rash DS: Data Data Completed and Pending Labs on day of discharge: Laboratory Results - last 24 hr 10/07/20 10/07/20 10/08/20 16:22 19:59 05:34 WBC 7.5 RBC 4.11 L Hgb 11.9 L Hct 34.8 L MCV 84.7 MCH 29.0 MCHC 34.2 RDW 12.2 Plt Count 212 MPV 11.3 Immature Gran % (Auto) 0.4 Neut % (Auto) 74.0 H Lymph % (Auto) 18.5 L [place] % (Auto) 4.3 Eos % (Auto) 2.5 Baso % (Auto) 0.3 Lymph # (Auto) 1.4 [place] # (Auto) 0.3 Eos # (Auto) 0.2 Baso # (Auto) 0.0 Abs Immat Gran (auto) 0.03 Absolute Neuts (auto) 5.6 Absolute Nucleated RBC 0.000 Nucleated RBC % (auto) 0.0 Sodium Potassium Chloride Carbon Dioxide Anion Gap BUN Creatinine Estim Creat Clear Calc Estimated GFR POC Glucose 128 H 147 H Random Glucose Calcium 10/08/20 10/08/20 10/08/20 05:34 07:21 11:31 WBC RBC Hgb Hct MCV MCH MCHC RDW Plt Count MPV Immature Gran % (Auto) Neut % (Auto) Lymph % (Auto) [place] % (Auto) Eos % (Auto) Baso % (Auto) Lymph # (Auto) [place] # (Auto) Eos # (Auto) Baso # (Auto) Abs Immat Gran (auto) Absolute Neuts (auto) Absolute Nucleated RBC Nucleated RBC % (auto) Sodium 141 Potassium 3.7 Chloride 108 Carbon Dioxide 25 Anion Gap 12 BUN 10 Creatinine 1.11 Estim Creat Clear Calc 35.9 Estimated GFR 48 POC Glucose 118 H 146 H Random Glucose 117 H Calcium 8.1 L Discharge Plan Discharge Patient Disposition: Home Health Service Referrals: [facility] [Outside] Vonda Fernandez MD [Primary Care Provider] - Discharge Medications: New amoxicillin-pot clavulanate 875-125 mg Tablet 875 mg PO Q12H Qty: 8 RF: 0 losartan 50 mg tablet 50 mg PO DAILY Qty: 30 RF: 0 Continued cholecalciferol (vitamin D3) 25 mcg (1,000 unit) capsule 25 mcg PO DAILY 30 Days Qty: 30 RF: 3 temazepam 7.5 mg capsule 7.5 mg PO BEDTIME PRN (Reason: Sleep) RF: 0 levothyroxine 125 mcg tablet 125 mcg PO QAM RF: 0 acetaminophen 500 mg tablet 1,000 mg PO Q8H PRN (Reason: Pain) RF: 0 calcium citrate 250 mg calcium Tablet 500 mg PO DAILY RF: 0 oxycodone 5 mg tablet 5 mg PO Q12H PRN (Reason: pain) RF: 0 rdqvbnox-trd-snvp-FA-lutein 8 mg iron-400 mcg-300 mcg tablet 1 tab PO QAM RF: 0 dronedarone 400 mg tablet 400 mg PO BID RF: 0 metoprolol tartrate 50 mg tablet 100 mg PO BID RF: 0 prazosin 5 mg capsule 5 mg PO BEDTIME RF: 0 spironolactone 25 mg tablet 25 mg PO DAILY RF: 0 omeprazole 20 mg capsule,delayed release(DR/EC) 20 mg PO DAILY RF: 0 amlodipine 10 mg tablet 10 mg PO DAILY RF: 0 metformin 500 mg tablet extended release 24 hr 500 mg PO BEDTIME RF: 0 gabapentin 300 mg capsule 300 mg PO BEDTIME RF: 0 sertraline 25 mg tablet 25 mg PO QAM RF: 0 atorvastatin 40 mg tablet 40 mg PO BEDTIME RF: 0 apixaban 5 mg tablet 5 mg PO BID RF: 0 Discontinued losartan 100 mg tablet 100 mg PO DAILY RF: 0 Discharge Orders: Discharge Order (Routine); Ordered 10/08/20 Ordered By: Asha Shirley Diet: diabetic diet Activity on Discharge: As tolerated Stand Alone Forms: Patient Portal Discharge page Health Concerns: Status post cholecystostomy tube for follow-up with Dr. Lopez in next 7-10 days, continue tube in place Plan of Treatment: Follow-up with Dr. Lopez and primary care physician
--- NOTE | 2020-10-08 15:09 | MHC.CM.PN ---
CM spoke with Patient's first contact/Sister/Keiko @ [phone], who indicated that a family Friend/Nado, is on her way to mushroom picker Patient and to transport home.
== END 2020-10-08 15:45 | disposition home health service (06) | DRG 871 ==
LOC: HO.ED 20:26 → HO.EDOVER 20:34 → HO.IMC 21:12
PROVIDERS: Family Medicine; Internal Medicine; Nurse Practitioner Primary Care; Radiology Diagnostic Radiology; Admitting Provider Hospitalist; Emergency Provider Emergency Medicine; PCP Internal Medicine; Visit Provider Hospitalist
PROC: 0F9430Z Drainage of Gallbladder with Drainage Device, Percutaneous Approach (ICD-10-PCS; principal; 2020-10-05 12:30)
DX: A41.9 Sepsis, unspecified organism (principal); N17.0 Acute kidney failure with tubular necrosis; J18.9 Pneumonia, unspecified organism; K81.0 Acute cholecystitis; N18.4 Chronic kidney disease, stage 4 (severe); N17.9 Acute kidney failure, unspecified; I69.954 Hemiplegia and hemiparesis following unspecified cerebrovascular disease affecting left non-dominant side; I48.91 Unspecified atrial fibrillation; Z20.822 Contact with and (suspected) exposure to COVID-19; E03.9 Hypothyroidism, unspecified; I12.9 Hypertensive chronic kidney disease with stage 1 through stage 4 chronic kidney disease, or unspecified chronic kidney disease; E11.22 Type 2 diabetes mellitus with diabetic chronic kidney disease; Z79.01 Long term (current) use of anticoagulants; Z79.890 Hormone replacement therapy; Z79.891 Long term (current) use of opiate analgesic; Z79.899 Other long term (current) drug therapy
CPT/HCPCS: 0241U; 36415; 49406; 70450; 71045; 71046; 71250; 74176; 76705; 80048; 80053; 81001; 82728; 82947; 83605; 83615; 83690; 83735; 83880; 84145; 84484; 85025; 85027; 85610; 85730; 86140; 87040; 87635; 93005; 96365; 96368; 97162; 97530; 99231; 99284; 99285; 99291; C1729; C1758; J2270; J2405; J2543; J3370; Q4186

== ENCOUNTER → 2020-10-28 13:32 | Outpatient (BNVA) | payer MEDICARE, SELFPAY | PROVIDERS: PCP Internal Medicine; Visit Provider Internal Medicine Endocrinology, Diabetes & Metabolism | DX: Z13.89 Encounter for screening for other disorder (principal) | CPT/HCPCS: Q3014 ==

== ENCOUNTER → 2020-11-05 14:52 | Outpatient (BNVA) | payer MEDICARE, SELFPAY | PROVIDERS: PCP Internal Medicine; Visit Provider Surgery | DX: K81.9 Cholecystitis, unspecified (principal) | CPT/HCPCS: 99212 ==

== ENCOUNTER 2020-11-12 09:56 | Outpatient (REF) | payer MEDICARE, SELFPAY ==
--- NOTE | ~2020-11-12 | FL_ITS ---
EXAMINATION: XR FLUOROSCOPY CLINICAL INFORMATION: Acute cholecystitis with placement of percutaneous cholecystostomy catheter. Check CBD patency. COMPARISON: CT abdomen drain 10/05/2020. TECHNIQUE: The percutaneous drainage catheter was discontinued from the back and the hub was cleaned in an antiseptic manner. 10 mL of nonionic contrast was injected through the tube under fluoroscopy and 2 images were obtained. After observing patency of the CBD, the catheter was severed and pulled. Complete hemostasis achieved at puncture site. Patient tolerated procedure extremely well. FINDINGS: On fluoroscopy-guided percutaneous cholecystogram there is contrast filling the gallbladder, a tortuous cystic duct and a widely patent common hepatic duct and common bile duct. There is visualization of intrahepatic ducts. There is contrast visualized in the duodenum. The gallbladder is opacified with an irregular-appearing mucosa. FLUOROSCOPY TIME: 0.1 minute DOSE AREA PRODUCT: 0.920 uGy-m2 (microgray-meter squared) FL/FL fluoroscopy <1hr IMPRESSION: Widely patent cystic duct and common bile duct. The gallbladder is partially distended with irregular-appearing mucosa but no extravasation. The cholecystostomy catheter was pulled out.
== END 2020-11-12 09:57 | disposition home or self-care (01) ==
LOC: HO.XRAY 09:56
PROVIDERS: Visit Provider Surgery
DX: K81.9 Cholecystitis, unspecified (principal)
CPT/HCPCS: 76000

== ENCOUNTER 2020-11-17 13:59 | Outpatient (REF) | payer MEDICARE, SELFPAY | END 2020-11-17 14:00 | disposition home or self-care (01) | LOC: HO.LAB 13:59 | PROVIDERS: Visit Provider Internal Medicine | DX: Z20.822 Contact with and (suspected) exposure to COVID-19 (principal) | CPT/HCPCS: C9803; U0003; U0005 ==